=== PATIENT | female | born 1980 | race Caucasian/White ===

== ENCOUNTER 2020-09-07 09:50 | Outpatient (REF) | payer MEDICAID, SELFPAY ==
--- NOTE | 2020-09-07 | US_ITS ---
EXAMINATION: US ABDOMEN COMPLETE CLINICAL INFORMATION: Liver disease. COMPARISON: CT urogram without and with contrast 09/03/2019 TECHNIQUE: Real-time imaging of the abdominal viscera. FINDINGS: PANCREAS: The visualized pancreas is normal in size and contour and echogenicity. There is no pancreatic enlargement. No pancreatic ductal dilatation or retroperitoneal effusion. The pancreatic tail is obscured by bowel gas and not completely imaged. ABDOMINAL AORTA: The proximal, mid, and distal segments are normal in caliber. INFERIOR VENA CAVA: Visualized portions are normal. LIVER: The liver is normal in size and smooth in contour. Echogenicity is within normal. There is a solitary 1 cm hypoechoic lesion subcapsular anterior left lobe with some low-level internal echoes and mild increased through-transmission of sound. No associated color flow. This shows no enhancement on recent CT (post contrast 6 HU), consistent with a cyst. The remainder of the liver is unremarkable. There is no intrahepatic biliary ductal dilatation. GALLBLADDER: The gallbladder is distended normally. There is no stone or slight or wall thickening. Some fine punctate hyperechoic stranding of the inner wall may suggest cholesterolosis. No pericholecystic fluid. Negative sonographic Pan's sign. COMMON BILE DUCT: Normal in caliber measuring 0.6 cm in diameter. RIGHT KIDNEY: Normal. No hydronephrosis. No renal calculi or focal parenchymal lesions. The kidney measures 10.3 cm in maximum dimension. LEFT KIDNEY: Normal. No hydronephrosis. No renal calculi or focal parenchymal lesions. The kidney measures 10.4 cm in maximum dimension. SPLEEN: Normal. The spleen measures 8.1 cm in maximum dimension. FREE FLUID: None. US/US abdomen complete IMPRESSION: 1. Liver normal in size and smooth in contour. 1 cm cyst left lobe. 2. Question cholesterolosis gallbladder. No stone or sludge. No ductal dilatation.
== END 2020-09-07 09:51 | disposition home or self-care (01) ==
LOC: HO.US 09:50
PROVIDERS: PCP Internal Medicine; Visit Provider Internal Medicine
DX: K76.89 Other specified diseases of liver (principal)
CPT/HCPCS: 76700

== ENCOUNTER 2020-10-06 16:35 | Outpatient (REF) | payer MEDICAID, SELFPAY | END 2020-10-06 16:36 | disposition home or self-care (01) | LOC: HO.LAB 16:35 | PROVIDERS: Visit Provider Internal Medicine | DX: Z20.828 Contact with and (suspected) exposure to other viral communicable diseases (principal) | CPT/HCPCS: C9803; U0003 ==

== ENCOUNTER → 2021-01-05 11:07 | Outpatient (BNVA) | payer MEDICAID, SELFPAY | PROVIDERS: Visit Provider Obstetrics & Gynecology ==

== ENCOUNTER 2021-06-24 23:11 | Emergency (ER) | payer MEDICAID, SELFPAY ==
--- NOTE | ~2021-06-24 | US_ITS ---
EXAMINATION: US PELVIS CLINICAL INFORMATION: Dysfunctional uterine bleeding with increased pain COMPARISON: 06/16/2020 TECHNIQUE: Ultrasound of the pelvis is performed using both transabdominal and transvaginal transducers along with Doppler. Transvaginal imaging is performed due to inadequate visualization transabdominally. FINDINGS: Uterus: The uterus measures 8.6 cm in length and 4.5 x 6.9 cm in AP and transverse dimensions. Arcuate uterus configuration is again noted. Endometrial stripe measures 1.3 cm in thickness and demonstrates mild heterogeneity. The right ovary measures 2.4 x 1.3 x 1.5 cm and appears unremarkable. The left ovary measures 3.9 x 3.1 x 3.7 cm and contains a cyst which measures up to 3.4 cm. Doppler evaluation demonstrates bilateral ovarian flow. Small amount of free fluid is noted. US/US pelvic and transvaginal IMPRESSION: 1. Endometrial stripe thickness near the upper limits of normal. Areas of heterogeneity are noted along the endometrium which could reflect blood products. 2. Left ovarian cyst measuring up to 3.4 cm, which could be reassessed in 6-8 weeks to evaluate for resolution. 3. Small amount of nonspecific pelvic free fluid, which may be physiologic.
[2021-06-24 23:34] VITALS: BP 149/86; PULSE 84; RESP 16; TEMP 36.1; O2SAT 99; BMI 27.3
[2021-06-25] VITALS: BP 119/77; PULSE 73; RESP 18; TEMP 36.6; O2SAT 98
--- NOTE | 2021-06-25 01:08 | PC.NURSE ---
Pt resting on stretcher in NAD, breathing with ease on RA. Pt aaox4, reports she is bleeding through 5 extra long sanitary pads in the past hour. This RN assists pt to bathroom, notes pt's sanitary pad is saturated but pt reports she has been wearing that pad for 2 hours, thus providing conflicting information.
--- NOTE | 2021-06-25 01:09 | ED.FEMALEGU ---
HPI - Female Genitourinary General Chief complaint: Vaginal Bleeding Stated complaint: uro genital? Time Seen by Provider: 06/25/21 01:09 Source: patient Mode of arrival: ambulatory Limitations: no limitations History of Present Illness HPI Narrative: Patient with history of DUB with history of heavy bleeding in the past comes here for 1 month of heavier than usual bleeding , some days 6-7 pads a day with small clots patient feel weak slight dizzy sometimes never been on control pills has not seen any staff assistant also complaining of pain in the lower abdomen Related Data Previous Rx's Medication Instructions Recorded ferrous sulfate 325 mg (65 mg 325 mg PO DAILY #30 tab 06/25/21 iron) tablet ibuprofen 600 mg tablet 600 mg PO Q6H PRN #20 tab 06/25/21 norgestrel 0.3 mg-ethinyl 1 tab PO DAILY #28 tab 06/25/21 estradiol 30 mcg tablet Allergies Allergy/AdvReac Type Severity Reaction Status Date / Time No Known Allergies Allergy Unverified 06/25/20 18:09 [No Known Allergies*] Review of Systems Review of Systems: Yes all other systems are reviewed and are negative [facility] Past Medical History Surgical History H/O LEEP Tubal ligation status Social History Social History Advance Directives: No Advance Directives Information Provided: Yes Patient : No Physical Exam Vital Signs: Vital Signs: Last Vital Signs Temp 97.8 F 06/25/21 02:00 Pulse 73 06/25/21 02:00 Resp 14 06/25/21 02:00 BP 123/80 06/25/21 02:00 Pulse Ox 100 06/25/21 02:00 Body Mass Index 27.3 Appearance: Alert. Oriented X3. No acute distress. Eyes: No pallor or icterus ENT: Pharynx normal. Oral Mucosa moist Neck: Normal inspection. Neck supple. CVS: Normal heart rate and rhythm. Pulses normal. Respiratory: No respiratory distress. Equal air entry bilateral, no wheezing/rales/rhonchi Abdomen: Soft , mild tenderness suprapubic area Bowel sounds are present, no mass palpable, no CVA tenderness Skin: Skin warm and dry. Normal skin color. Normal skin turgor. Extremities: No lower extremity edema. No calf tenderness Neuro: Oriented X 3. MDM - Female Genitourinary MDM Narrative Medical decision making narrative: Patient dysfunctional uterine bleed with stable H&H ultrasound showed left ovarian cyst. Patient advised to take ibuprofen, iron tablets and follow up with staff assistant started on oral contraceptive pill Lab Data Attestation: I reviewed the patient's lab results. Result diagrams: 06/25/21 01:40 06/25/21 01:40 Labs: Lab Results 06/25/21 06/25/21 06/25/21 Range/Units 01:40 01:40 01:40 WBC 9.9 (4.8-10.8) X10*3/uL RBC 3.77 L (4.20-5.50) X10*6/uL Hgb 11.0 L (12.0-16.0) g/dl Hct 33.2 L (37-47) % MCV 88.1 (80-98) fL MCH 29.2 (27.0-33.0) pg MCHC 33.1 (31.0-35.0) g/dl RDW 14.0 (11.0-16.0) % Plt Count 279 (160-400) X10*3/uL MPV 10.2 (9.4-12.3) fL Immature Gran % (Auto) 0.2 (0.0-0.4) % Neut % (Auto) 59.3 (45-73) % Lymph % (Auto) 29.1 (20-40) % [place] % (Auto) 9.5 (2-11) % Eos % (Auto) 1.5 (0-4) % Baso % (Auto) 0.4 (0-2) % Lymph # (Auto) 2.9 (1.2-4.9) X10*3/uL [place] # (Auto) 0.9 (0.1-1.2) X10*3/uL Eos # (Auto) 0.2 (0.0-0.4) X10*3/uL Baso # (Auto) 0.0 (0.0-0.2) X10*3/uL Abs Immat Gran (auto) 0.02 (0.00-0.03) X10*3/uL Absolute Neuts (auto) 5.9 (2.0-8.3) X10*3/uL Absolute Nucleated RBC 0.000 (0.0-0.012) X10*3/uL Nucleated RBC % (auto) 0.0 (0.0-0.2) /100WBC Sodium (135-145) mmol/L Potassium (3.3-5.1) mmol/L Chloride (96-108) mmol/L Carbon Dioxide (22-29) mmol/L Anion Gap (12-20) BUN (9-16) mg/dL Creatinine (0.5-1.4) mg/dL Estim Creat Clear Calc Estimated GFR Random Glucose (60-115) mg/dL Calcium (8.4-10.2) mg/dL Total Bilirubin (0.0-1.0) mg/dL AST (5-31) U/L ALT (0-31) U/L Alkaline Phosphatase (39-117) U/L Total Protein (6.5-8.0) g/dL Albumin (3.5-5.0) g/dL Urine Color YELLOW Urine Appearance HAZY Urine pH 6.5 (5.0-8.0) Ur Specific [place] 1.025 (1.005-1.025) Urine Protein TRACE (NEG-TRACE) MG/DL Urine Glucose (UA) NEG (NEG) MG/DL Urine Ketones NEG (NEG) MG/DL Urine Blood 3+ H (NEG) Urine Nitrite NEG (NEG) Ur Leukocyte Esterase NEG (NEG) Urine RBC 30-49 H (0) /HPF Urine WBC 1-4 (0-4) /HPF Ur Squamous Epith Cells 1+ /LPF Urine Bacteria 1+ /LPF Urine Mucus 1+ /LPF Urine Test NEGATIVE (NEGATIVE) 06/25/21 Range/Units 01:40 WBC (4.8-10.8) X10*3/uL RBC (4.20-5.50) X10*6/uL Hgb (12.0-16.0) g/dl Hct (37-47) % MCV (80-98) fL MCH (27.0-33.0) pg MCHC (31.0-35.0) g/dl RDW (11.0-16.0) % Plt Count (160-400) X10*3/uL MPV (9.4-12.3) fL Immature Gran % (Auto) (0.0-0.4) % Neut % (Auto) (45-73) % Lymph % (Auto) (20-40) % [place] % (Auto) (2-11) % Eos % (Auto) (0-4) % Baso % (Auto) (0-2) % Lymph # (Auto) (1.2-4.9) X10*3/uL [place] # (Auto) (0.1-1.2) X10*3/uL Eos # (Auto) (0.0-0.4) X10*3/uL Baso # (Auto) (0.0-0.2) X10*3/uL Abs Immat Gran (auto) (0.00-0.03) X10*3/uL Absolute Neuts (auto) (2.0-8.3) X10*3/uL Absolute Nucleated RBC (0.0-0.012) X10*3/uL Nucleated RBC % (auto) (0.0-0.2) /100WBC Sodium 141 (135-145) mmol/L Potassium 4.0 (3.3-5.1) mmol/L Chloride 108 (96-108) mmol/L Carbon Dioxide 24 (22-29) mmol/L Anion Gap 13 (12-20) BUN 10 (9-16) mg/dL Creatinine 0.74 (0.5-1.4) mg/dL Estim Creat Clear Calc 85.7 Estimated GFR > 60 Random Glucose 100 (60-115) mg/dL Calcium 9.0 (8.4-10.2) mg/dL Total Bilirubin 0.2 (0.0-1.0) mg/dL AST 12 (5-31) U/L ALT 10 (0-31) U/L Alkaline Phosphatase 39 (39-117) U/L Total Protein 6.3 L (6.5-8.0) g/dL Albumin 3.9 (3.5-5.0) g/dL Urine Color Urine Appearance Urine pH (5.0-8.0) Ur Specific [place] (1.005-1.025) Urine Protein (NEG-TRACE) MG/DL Urine Glucose (UA) (NEG) MG/DL Urine Ketones (NEG) MG/DL Urine Blood (NEG) Urine Nitrite (NEG) Ur Leukocyte Esterase (NEG) Urine RBC (0) /HPF Urine WBC (0-4) /HPF Ur Squamous Epith Cells /LPF Urine Bacteria /LPF Urine Mucus /LPF Urine Test (NEGATIVE) Discharge Plan Discharge Clinical Impression: Dysfunctional uterine bleeding Patient Disposition: Home, Self-Care Instructions: Dysfunctional Uterine Bleeding (ED), Ovarian Cyst (ED) Additional Instructions: Ibuprofen for pain Take control pills as advised to control your periods. Follow with staff assistant Prescriptions: New norgestrel-ethinyl estradiol 0.3-30 mg-mcg tablet 1 tab PO DAILY Qty: 28 RF: 2 ibuprofen 600 mg tablet 600 mg PO Q6H PRN (Reason: pain) Qty: 20 RF: 0 ferrous sulfate 325 mg (65 mg iron) tablet 325 mg PO DAILY Qty: 30 RF: 0 Referrals: Kalin Portillo MD [Physician] - 1 week Interventions: ED Discharge Assessment Last Done: 06/25/21 03:16 Discharge Date/Time: 06/25/21 03:17
[2021-06-25 01:46] LABS: MANUAL DIFF FLAG NO
[2021-06-25 01:56] LABS: Appearance Urine HAZY; Color Urine YELLOW; Glucose Urine UA NEG (NEG); Leukocyte Esterase Urine NEG (NEG); Nitrite Urine NEG (NEG); PH 6.5 (5.0-8.0); Specific Gravity - Urine 1.025 (1.005-1.025); UACC Culture Trigger NO; Urine Blood 3+ (NEG); Urine Ketones NEG (NEG); Urine Protein TRACE MG/DL (NEG-TRACE)
[2021-06-25 01:57] LABS: Basophils Percent Auto 0.4 % (0-2); Eosinophils Absolute Auto 0.2 X10*3/uL (0.0-0.4); Eosinophils Percent Auto 1.5 % (0-4); Hematocrit 33.2 % (37-47); Imm Gran Abs Auto 0.02 X10*3/uL (0.00-0.03); Imm Gran Pct Auto 0.2 % (0.0-0.4); Lymphocytes Absolute Auto 2.9 X10*3/uL (1.2-4.9); Lymphocytes Percent Auto 29.1 % (20-40); Mean Corpuscular HGB Conc 33.1 g/dl (31.0-35.0); Mean Corpuscular Hemoglobin 29.2 pg (27.0-33.0); Mean Corpuscular Volume 88.1 fL (80-98); Mean Platelet Volume 10.2 fL (9.4-12.3); Monocytes Absolute Auto 0.9 X10*3/uL (0.1-1.2); Monocytes Percent Auto 9.5 % (2-11); Neutrophils Absolute Auto 5.9 X10*3/uL (2.0-8.3); Neutrophils Percent Auto 59.3 % (45-73); Platelet Count 279 X10*3/uL (160-400); Red Blood Count 3.77 X10*6/uL (4.20-5.50); White Blood Count 9.9 X10*3/uL (4.8-10.8)
[2021-06-25 01:58] LABS: UPreg QC Valid YES; Urine Pregnancy NEGATIVE (NEGATIVE)
[2021-06-25 02:00] VITALS: BP 123/80; PULSE 73; RESP 14; TEMP 36.6; O2SAT 100
[2021-06-25 02:07] LABS: Alanine Aminotransferase 10 U/L (0-31); Albumin Level 3.9 g/dL (3.5-5.0); Alkaline Phosphatase 39 U/L (39-117); Anion Gap 13 (12-20); Aspartate Amino Transferase 12 U/L (5-31); Bilirubin Total 0.2 mg/dL (0.0-1.0); Blood Urea Nitrogen 10 mg/dL (9-16); Carbon Dioxide 24 mmol/L (22-29); Chloride 108 mmol/L (96-108); Creatinine Clr Calc Pharmacy 85.7; Estimated Glomerular Filt Rate > 60; Glucose Random 100 mg/dL (60-115); Sodium 141 mmol/L (135-145); Total Protein 6.3 g/dL (6.5-8.0)
[2021-06-25 02:11] LABS: RBC Urine 30-49 /HPF (0)
[2021-06-25 02:12] LABS: Bacteria Urine 1+ /LPF; Mucus Urine 1+ /LPF; Squamous Epithelial Cell Urine 1+ /LPF
[2021-06-25] MEDS: Ibuprofen 600 MG TABLET PO (03:14)
== END 2021-06-25 03:17 | disposition home or self-care (01) ==
PROVIDERS: Emergency Provider Internal Medicine
DX: N93.8 Other specified abnormal uterine and vaginal bleeding (principal); Z79.899 Other long term (current) drug therapy
CPT/HCPCS: 36415; 76830; 76856; 80053; 81001; 81025; 85025; 99284

== ENCOUNTER 2021-07-15 12:02 | Outpatient (REF) | payer MEDICAID, SELFPAY ==
[2021-07-15 14:12] LABS: HCG Quantitative < 2 mIU/mL; TSH reflex Free T4 1.24 uIU/mL (0.32-4.0)
[2021-07-15 16:07] LABS: CT PCR NOT DETECTED (Not Detect.); NG PCR NOT DETECTED (Not Detect.)
== END 2021-07-15 12:03 | disposition home or self-care (01) ==
LOC: HO.LAB 12:02
PROVIDERS: PCP Internal Medicine; Visit Provider Obstetrics & Gynecology
DX: N93.9 Abnormal uterine and vaginal bleeding, unspecified (principal)
CPT/HCPCS: 36415; 58100; 84443; 84702; 87491; 87591; 88305; 99212

== ENCOUNTER → 2021-07-21 10:37 | Outpatient (BNVA) | payer MEDICAID, SELFPAY | PROVIDERS: Visit Provider Obstetrics & Gynecology ==

== ENCOUNTER 2021-08-19 12:53 | Emergency (ER) | payer MEDICAID, SELFPAY ==
--- NOTE | ~2021-08-19 | XR_ITS ---
EXAMINATION: XR CHEST CLINICAL INFORMATION: Chest pain COMPARISON: None TECHNIQUE: Frontal view of the chest was obtained. FINDINGS: No significant abnormality is noted involving the heart, lungs, mediastinum, bony thorax or soft tissues. XR/XR chest 1V IMPRESSION: No acute disease.
--- NOTE | ~2021-08-19 | CT_ITS ---
EXAMINATION: CT ANGIOGRAM OF THE CHEST WITH AND WITHOUT CONTRAST (CT PULMONARY ANGIOGRAM FOR PE) CLINICAL INFORMATION: Elevated d-dimer. Shortness of breath. Chest pain. COMPARISON: Chest radiograph done earlier today at 2:07 PM. TECHNIQUE: Prior to contrast administration, noncontrast localization images were obtained. Subsequently, multidetector volumetric imaging was performed from the thoracic inlet to below the diaphragms following the administration of 70 mL Omnipaque 350 intravenous contrast. No contrast reaction reported Sagittal, coronal, and MIP oblique sagittal reformatted images were obtained on the CT workstation, uploaded to PACS, and reviewed. This CT examination was performed using dose optimization techniques as appropriate, variously including the following: *Automated exposure control *Adjustment of mA and/or kV according to patient size (this includes techniques or standardized protocols for targeted exams where dose is matched to indication/reason for exam; i.e. extremities or head) *Use of iterative reconstruction technique Total exam dose-length product 203 mGy-cm FINDINGS: QUALITY OF STUDY/CONTRAST BOLUS: Satisfactory. PULMONARY ARTERIES: There are a few filling defects within segmental branches of the right middle lobe (axial images 196 and 198 of series 7). On coronal images, these appear to be related with superimposed barragan from adjacent vessels (image 34 of series 11) which favored to represent artifacts from volume averaging. No central pulmonary emboli. THORACIC AORTA: No aneurysm or dissection. LUNG: No focal consolidation. There is very mild bronchial wall thickening with subtle mosaic attenuation of the lung parenchyma. No suspicious pulmonary nodules or masses. The central airways are patent. PLEURA: No pleural effusion or pneumothorax. MEDIASTINUM: Normal heart size. No pericardial effusion. No hilar or mediastinal lymphadenopathy. No evidence of septal bowing or right heart strain. CHEST WALL/AXILLA: No axillary or internal mammary lymphadenopathy. OSSEOUS STRUCTURES: No acute or suspicious osseous abnormality. UPPER ABDOMEN: There is a too small to characterize hypodensity in the right hepatic lobe (image 45 of series 6) which is overwhelmingly likely to be of no clinical significance. No reflux of contrast into the hepatic veins to suggest elevated right heart pressures. CT/CT angio chest PE protocol IMPRESSION: On axial images there are some filling defects within segmental branches of the right middle lobe that when correlating with other projections appear to be artifactual and related with volume averaging. However, is clinical concerning persists for pulmonary emboli, consider further evaluation with a nuclear medicine study or a short-term follow-up CT. No central pulmonary emboli. No evidence of increased right-sided heart pressures. Mild bronchial wall thickening and mosaic attenuation of the lung parenchyma could be related with an infectious or inflammatory process of the small airways leading to mild air trapping. A tiny hypodensity in the right hepatic lobe is likely a benign finding, possibly a cyst or hemangioma. If definite characterization is desired, consider further evaluation with a nonemergent liver ultrasound. VTE: indeterminate
--- NOTE | 2021-08-19 13:25 | PC.NURSE ---
pattern and chain maker called to help triage
[2021-08-19 13:42] VITALS: BP 120/81; PULSE 93; RESP 18; TEMP 36.6; O2SAT 100; BMI 27.3
--- NOTE | 2021-08-19 13:47 | ECG_ITS ---
Test Reason : CHEST PAIN Blood Pressure : / mmHG Vent. Rate : 089 BPM Atrial Rate : 089 BPM P-R Int : 146 ms QRS Dur : 074 ms QT Int : 356 ms P-R-T Axes : 031 057 033 degrees QTc Int : 433 ms Normal sinus rhythm Normal ECG No previous ECGs available Referred By: Generic ED Physician Electronically Signed By:WENDY BURK MD
[2021-08-19 15:56] VITALS: BP 126/82; PULSE 80; RESP 16; TEMP 36.7; O2SAT 100
--- NOTE | 2021-08-19 16:09 | ED.CHESTPAIN ---
HPI - Chest Pain General Chief Complaint: Chest Pain Stated Complaint: sob, chest tightness, dry mouth, loss of appetite Time Seen by Provider: 08/19/21 15:45 Source: patient Mode of arrival: ambulatory Limitations: no limitations History of Present Illness HPI narrative: 41-year-old female with no previous medical history here with complaints of intermittent chest tightness with shortness of breath for the last 1 week. No leg swelling or pain. No cough, fevers or chills. Pain is worsened with deep breathing. Also complaining of some associated dry mouth and perioral numbness which is occurring with these episodes. Increased stress and anxiety at home due to her children. Was taking an OCP tell about 2 weeks ago when she discontinued it because she feels like her symptoms may have been caused by this medication Related Data Previous Rx's Medication Instructions Recorded ferrous sulfate 325 mg (65 mg 325 mg PO DAILY #30 tab 06/25/21 iron) tablet ibuprofen 600 mg tablet 600 mg PO Q6H PRN #20 tab 06/25/21 norgestrel 0.3 mg-ethinyl 1 tab PO DAILY 28 Days #28 tab 07/21/21 estradiol 30 mcg tablet lorazepam 0.5 mg tablet 0.5 mg PO TID PRN #8 tab 08/19/21 rivaroxaban 15 mg (42)-20 mg (9) See Rx Instructions .ROUTE 08/19/21 tablets in a starter pack (Xarelto .COMPLEX #51 ea DVT-PE Treat 30d Start) Allergies Allergy/AdvReac Type Severity Reaction Status Date / Time No Known Allergies Allergy Verified 08/19/21 13:22 [No Known Allergies*] Review of Systems Review of Systems: Yes all other systems are reviewed and are negative Constitutional: Constitutional: Reports no additional constitutional complaints, Denies body ache(s), Denies chills, Denies fever(s), Denies headache(s) and Denies weakness Eyes: Eyes: Reports no additional eye complaints and Denies change in vision ENT: Reports system reviewed and no additional complaints, except as documented, Denies dizziness, Denies headache(s), Denies nasal congestion, Denies nasal discharge and Denies neck pain Cardiovascular: Cardiovascular: Reports no additional cardiovascular complaints, Reports chest pain, Denies leg edema and Reports dyspnea Respiratory: Respiratory: Reports no additional respiratory complaints, Denies cough and Reports dyspnea Gastrointestinal: Gastrointestinal: Reports no additional gastrointestinal complaints, Denies abdominal pain, Denies diarrhea, Denies nausea and Denies vomiting Genitourinary: Genitourinary: Reports no additional female genitourinary complaints and Denies urinary incontinence Musculoskeletal: Musculoskeletal: Reports no additional musculoskeletal complaints, Denies back pain, Denies arthralgias, Denies joint swelling, Denies neck pain, Denies numbness and Denies tingling Integumentary/Breasts: Skin/Breast: Reports system reviewed and no additional complaints, except as docu and Denies rash Neurologic: Reports system reviewed and no additional complaints, except as documented, Denies Abnormal speech present, Denies dizziness, Denies headache(s), Denies numbness, Denies tingling and Denies weakness PMFSH Past Medical History Attestation statement: The following information was validated with the patient. Source: old records reviewed and nursing notes reviewed Surgical History H/O LEEP Tubal ligation status Family History Family History Father Lung cancer Social History Social History Patient Tobacco Use Status: Current everyday Tobacco user Advance Directives: No Advance Directives Information Provided: Yes Patient : No Physical Exam Vital Signs: Vital Signs: Last Vital Signs Temp 98.4 F 08/19/21 19:45 Pulse 88 08/19/21 19:45 Resp 18 08/19/21 19:45 BP 118/79 08/19/21 19:45 Pulse Ox 97 08/19/21 19:45 Body Mass Index 27.3 Const: General: cooperative, healthy appearing, comfortable and no acute distress Orientation/consciousness: patient oriented x3 Limitations: no limitations HENMT: Head: Yes normal to inspection Ears: hearing grossly normal bilaterally and TM's normal bilaterally General nose exam: Normal external nose present Face and sinus: Yes normal facial exam Mouth: Normal oral and palatal mucosa present Throat: Yes posterior oropharynx normal Eyes: General: appearance normal, both eyes and all related structures Pupils: Equal, round and reactive pupils present Neck: Neck: Yes normal visual inspection Chest: Chest palpation & inspection: normal inspection of the chest Resp: Effort & Inspection: normal respiratory effort Auscultation: clear to auscultation bilaterally Cardio: Rate: regular rate Rhythm: regular rhythm Peripheral pulses: Peripheral pulses 2+ throughout GI: Inspection: Yes normal to inspection Palpation (GI): Soft to palpation and nontender Auscultation: normal bowel sounds Back/Spine/Pelvis: Thoracic/Lumbar Spine: thoracic and lumbar spine normal to inspection Skin: General skin exam: no rashes or lesions noted Neuro: General: patient oriented x3, no focal motor deficits and normal sensation to monofilament Cranial nerves: Yes Equal, round and reactive pupils present Cognition (Neuro): normal cognition Speech: No Abnormal speech present Gait exam (Neuro): Normal gait present Motor exam (neuro): 5/5 motor strength present throughout Extrem: General: Yes normal to inspection, Yes no pedal edema and Yes no calf tenderness Course Course Course Narrative: 41-year-old female here with complaints of 1 week of chest tightness and shortness of breath. On an OCP till about 2 weeks ago. Will need labs, chest x-ray, EKG. [id number] is elevated. Will need CTA to rule out PE 0-CTA shows some filling defects within segmental branches of the right middle lobe that when correlating with other projections appear to be artifactual and related with volume averaging. However, is clinical concerning persists for pulmonary emboli, consider further evaluation with a nuclear medicine study or a short-term follow-up CT. Clinically the patient has no evidence of a DVT. She has no tachycardia, hypoxia or tachypnea. She does have some pleuritic chest pain and subjective shortness of breath with a mildly elevated D-dimer. She was on OCP until about 2 weeks ago when she discontinued it.. The case was discussed with Dr. Pinto. At this time we would likely not be able to get a nuclear medicine study. Patient is clinically stable with no hypoxia or tachypnea which warrants admission. Therefore, we will discharge her home on Xarelto and recommend that she have a repeat CT scan within 7 days. At that point the Xarelto can be discontinued by her primary care doctor if the imaging is negative. We discussed at length with the brand representative and the patient's mom a better plan for discharge home. We also discussed the use of anticoagulation and associated risks. She tells me that she does have a history of heavy vaginal bleeding >several months ago which never required transfusion. We discussed risks versus benefits at length. Patient is aware that she may have some vaginal bleeding however feels that the benefits of starting anticoagulation outweighs this. All questions answered. Case discussed with microfabrication engineer manager at [facility] (Jose Name). he will ensure patient has follow-up this week. Reviewed worrisome signs and symptoms of when to return to the emergency department. Comfortable discharge home. MDM - Chest Pain MDM Narrative Medical decision making narrative: PE, ACS Medical Records Data Attestation: I reviewed the patient's medical records. Lab Data Attestation: I reviewed the patient's lab results. Result diagrams: 08/19/21 15:58 08/19/21 15:58 Labs: Lab Results 08/19/21 08/19/21 08/19/21 Range/Units 15:58 15:58 15:58 WBC 7.0 (4.8-10.8) X10*3/uL RBC 4.05 L (4.20-5.50) X10*6/uL Hgb 11.5 L (12.0-16.0) g/dl Hct 35.9 L (37.0-47.0) % MCV 88.6 (80.0-98.0) fL MCH 28.4 (27.0-33.0) pg MCHC 32.0 (31.0-35.0) g/dl RDW 13.2 (11.0-16.0) % Plt Count 302 (160-400) X10*3/uL MPV 10.4 (9.4-12.3) fL Immature Gran % (Auto) 0.4 (0.0-0.4) % Neut % (Auto) 67.8 (45-73) % Lymph % (Auto) 21.9 (20-40) % Bailey % (Auto) 8.3 (2-11) % Eos % (Auto) 1.0 (0-4) % Baso % (Auto) 0.6 (0-2) % Lymph # (Auto) 1.5 (1.2-4.9) X10*3/uL Bailey # (Auto) 0.6 (0.1-1.2) X10*3/uL Eos # (Auto) 0.1 (0.0-0.4) X10*3/uL Baso # (Auto) 0.0 (0.0-0.2) X10*3/uL Abs Immat Gran (auto) 0.03 (0.00-0.03) X10*3/uL Absolute Neuts (auto) 4.8 (2.0-8.3) x10*3/uL Absolute Nucleated RBC 0.000 (0.0-0.012) X10*3/uL Nucleated RBC % (auto) 0.0 (0.0-0.2) /100WBC PT 12.5 (9.9-13.0) SEC INR 1.1 (0.9-1.1) D-Dimer 294 NG/ML Sodium (135-145) mmol/L Potassium (3.3-5.1) mmol/L Chloride (96-108) mmol/L Carbon Dioxide (22-29) mmol/L Anion Gap (12-20) BUN (9-16) mg/dL Creatinine (0.5-1.4) mg/dL Estim Creat Clear Calc Estimated GFR Random Glucose (60-115) mg/dL Calcium (8.4-10.2) mg/dL Total Bilirubin (0.0-1.0) mg/dL Direct Bilirubin (0.0-0.5) mg/dL AST (5-31) U/L ALT (0-31) U/L Alkaline Phosphatase (39-117) U/L Troponin I High Sens < 3.5 (<3.5-17.0) ng/L Total Protein (6.5-8.0) g/dL Albumin (3.5-5.0) g/dL Urine Color Urine Appearance Urine pH (5.0-8.0) Ur Specific [place] (1.005-1.025) Urine Protein (NEG-TRACE) MG/DL Urine Glucose (UA) (NEG) MG/DL Urine Ketones (NEG) MG/DL Urine Blood (NEG) Urine Nitrite (NEG) Ur Leukocyte Esterase (NEG) Urine RBC (0) /HPF Urine WBC (0-4) /HPF Ur Squamous Epith Cells /LPF Urine Bacteria /LPF Urine Test (NEGATIVE) 08/19/21 08/19/21 08/19/21 Range/Units 15:58 18:06 18:06 WBC (4.8-10.8) X10*3/uL RBC (4.20-5.50) X10*6/uL Hgb (12.0-16.0) g/dl Hct (37.0-47.0) % MCV (80.0-98.0) fL MCH (27.0-33.0) pg MCHC (31.0-35.0) g/dl RDW (11.0-16.0) % Plt Count (160-400) X10*3/uL MPV (9.4-12.3) fL Immature Gran % (Auto) (0.0-0.4) % Neut % (Auto) (45-73) % Lymph % (Auto) (20-40) % Bailey % (Auto) (2-11) % Eos % (Auto) (0-4) % Baso % (Auto) (0-2) % Lymph # (Auto) (1.2-4.9) X10*3/uL Bailey # (Auto) (0.1-1.2) X10*3/uL Eos # (Auto) (0.0-0.4) X10*3/uL Baso # (Auto) (0.0-0.2) X10*3/uL Abs Immat Gran (auto) (0.00-0.03) X10*3/uL Absolute Neuts (auto) (2.0-8.3) x10*3/uL Absolute Nucleated RBC (0.0-0.012) X10*3/uL Nucleated RBC % (auto) (0.0-0.2) /100WBC PT (9.9-13.0) SEC INR (0.9-1.1) D-Dimer NG/ML Sodium 138 (135-145) mmol/L Potassium 3.9 (3.3-5.1) mmol/L Chloride 107 (96-108) mmol/L Carbon Dioxide 24 (22-29) mmol/L Anion Gap 11 L (12-20) BUN 10 (9-16) mg/dL Creatinine 0.73 (0.5-1.4) mg/dL Estim Creat Clear Calc 86.0 Estimated GFR > 60 Random Glucose 92 (60-115) mg/dL Calcium 9.2 (8.4-10.2) mg/dL Total Bilirubin < 0.2 (0.0-1.0) mg/dL Direct Bilirubin < 0.2 (0.0-0.5) mg/dL AST 20 D (5-31) U/L ALT 19 (0-31) U/L Alkaline Phosphatase 56 D (39-117) U/L Troponin I High Sens (<3.5-17.0) ng/L Total Protein 7.1 (6.5-8.0) g/dL Albumin 4.2 (3.5-5.0) g/dL Urine Color YELLOW Urine Appearance CLEAR Urine pH 6.0 (5.0-8.0) Ur Specific [place] >= 1.030 H (1.005-1.025) Urine Protein NEG (NEG-TRACE) MG/DL Urine Glucose (UA) NEG (NEG) MG/DL Urine Ketones 15 (NEG) MG/DL Urine Blood 1+ H (NEG) Urine Nitrite NEG (NEG) Ur Leukocyte Esterase NEG (NEG) Urine RBC 1-4 (0) /HPF Urine WBC 0 (0-4) /HPF Ur Squamous Epith Cells NONE /LPF Urine Bacteria 1+ /LPF Urine Test NEGATIVE (NEGATIVE) Imaging Data Chest x-ray: Attestation: I personally reviewed and interpreted this imaging study as follows: Radiologist's impression: EXAMINATION: XR CHEST CLINICAL INFORMATION: Chest pain COMPARISON: None TECHNIQUE: Frontal view of the chest was obtained. FINDINGS: No significant abnormality is noted involving the heart, lungs, mediastinum, bony thorax or soft tissues. XR/XR chest 1V IMPRESSION: No acute disease. ? CT scan - chest: Attestation: I personally reviewed and interpreted this imaging study as follows: Radiologist's impression: [address] [address] [address] Scan Report Signed Patient: Carmen Whitten MR#: [id number] : 1980 Acct:[id number] Age/Sex: 41 / F ADM Date: 08/19/21 Loc: .ED Attending Dr: Ordering Physician: Ariana Malave NP Date of Service: 08/19/21 Procedure(s): CT angio chest PE protocol Accession Number(s): [id number] cc: Ariana Malave NP~ EXAMINATION: CT ANGIOGRAM OF THE CHEST WITH AND WITHOUT CONTRAST (CT PULMONARY ANGIOGRAM FOR PE) CLINICAL INFORMATION: Elevated d-dimer. Shortness of breath. Chest pain. COMPARISON: Chest radiograph done earlier today at 2:07 PM.? TECHNIQUE: Prior to contrast administration, noncontrast localization images were obtained. ? Subsequently, multidetector volumetric imaging was performed from the thoracic inlet to below the diaphragms following the administration of 70 mL Omnipaque 350 intravenous contrast. No contrast reaction reported Sagittal, coronal, and MIP oblique sagittal reformatted images were obtained on the CT workstation, uploaded to PACS, and reviewed. This CT examination was performed using dose optimization techniques as appropriate, variously including the following: *Automated exposure control *Adjustment of mA and/or kV according to patient size (this includes techniques or standardized protocols for targeted exams where dose is matched to indication/reason for exam; i.e. extremities or head) *Use of iterative reconstruction technique Total exam dose-length product 203 mGy-cm FINDINGS: QUALITY OF STUDY/CONTRAST BOLUS: Satisfactory. PULMONARY ARTERIES: There are a few filling defects within segmental branches of the right middle lobe (axial images 196 and 198 of series 7). On coronal images, these appear to be related with superimposed barragan from adjacent vessels (image 34 of series 11) which favored to represent artifacts from volume averaging. No central pulmonary emboli. ? THORACIC AORTA: No aneurysm or dissection. LUNG: No focal consolidation. There is very mild bronchial wall thickening with subtle mosaic attenuation of the lung parenchyma. No suspicious pulmonary nodules or masses. The central airways are patent. PLEURA: No pleural effusion or pneumothorax. MEDIASTINUM: Normal heart size.? No pericardial effusion.? No hilar or mediastinal lymphadenopathy.? No evidence of septal bowing or right heart strain. CHEST WALL/AXILLA: No axillary or internal mammary lymphadenopathy. OSSEOUS STRUCTURES: No acute or suspicious osseous abnormality.? UPPER ABDOMEN: There is a too small to characterize hypodensity in the right hepatic lobe (image 45 of series 6) which is overwhelmingly likely to be of no clinical significance.? No reflux of contrast into the hepatic veins to suggest elevated right heart pressures. CT/CT angio chest PE protocol IMPRESSION: On axial images there are some filling defects within segmental branches of the right middle lobe that when correlating with other projections appear to be artifactual and related with volume averaging. However, is clinical concerning persists for pulmonary emboli, consider further evaluation with a nuclear medicine study or a short-term follow-up CT. ? No central pulmonary emboli. ? No evidence of increased right-sided heart pressures. ? Mild bronchial wall thickening and mosaic attenuation of the lung parenchyma could be related with an infectious or inflammatory process of the small airways leading to mild air trapping. ? A tiny hypodensity in the right hepatic lobe is likely a benign finding, possibly a cyst or hemangioma. If definite characterization is desired, consider further evaluation with a nonemergent liver ultrasound. ? VTE: indeterminate ECG Data ECG #1: Attestation: I personally reviewed and interpreted this ECG as follows: ECG interpretation date: 08/19/21 ECG interpretation time: 14:51 Interpretation: Normal sinus rhythm with a rate of 89, normal ME, normal QRS, normal QT Discharge Plan Discharge Clinical Impression: Pulmonary embolism Patient Disposition: Home, Self-Care Instructions: Chest Pain (ED), Blood Thinners (ED) Additional Instructions: Hicimos percy tomograf?a computarizada de reynolds t?rax que fue indeterminada para percy embolia pulmonar que es un co?gulo en el pulm?n. Se recomend? que se repita la tomograf?a computarizada dentro de los 7 d?as. Estamos comenzando con la anticoagulaci?n, que puede ser descontinuada por reynolds m?dico de atenci?n primaria si reynolds tomograf?a computarizada repetida es normal. Habl? con el m?dico de atenci?n primaria de reina que lo adurey? esta semana. Debes llamar. Busque atenci?n en el servicio de urgencias si empeora la dificultad para respirar, el sangrado que no se detiene en 10 minutos o si se y se golpea la meaghan. I spoke to microfabrication engineer manager physician Dr Jose Sanabria Prescriptions: New Xarelto DVT-PE Treat 30d Start 15 mg (42)- 20 mg (9) tablets,dose pack See Rx Instructions .ROUTE .COMPLEX Qty: 51 RF: 0 lorazepam 0.5 mg tablet 0.5 mg PO TID PRN (Reason: anxiety) Qty: 8 RF: 0 No Action ibuprofen 600 mg tablet 600 mg PO Q6H PRN (Reason: pain) Qty: 20 RF: 0 ferrous sulfate 325 mg (65 mg iron) tablet 325 mg PO DAILY Qty: 30 RF: 0 norgestrel-ethinyl estradiol 0.3-30 mg-mcg tablet 1 tab PO DAILY 28 Days Qty: 28 RF: 2 Referrals: Ana M Harrington MD [Primary Care Provider] - 2 days Print Language: Irish
[2021-08-19 16:11] LABS: MANUAL DIFF FLAG NO
[2021-08-19 16:17] LABS: INTERNATIONAL NORM RATIO 1.1 (0.9-1.1); Prothrombin Time 12.5 SEC (9.9-13.0)
[2021-08-19 16:27] LABS: Alanine Aminotransferase 19 U/L (0-31); Albumin Level 4.2 g/dL (3.5-5.0); Alkaline Phosphatase 56 U/L (39-117); Anion Gap 11 (12-20); Aspartate Amino Transferase 20 U/L (5-31); Bilirubin Direct < 0.2 mg/dL (0.0-0.5); Bilirubin Total < 0.2 mg/dL (0.0-1.0); Blood Urea Nitrogen 10 mg/dL (9-16); Calcium 9.2 mg/dL (8.4-10.2); Carbon Dioxide 24 mmol/L (22-29); Chloride 107 mmol/L (96-108); Estimated Glomerular Filt Rate > 60; Glucose Random 92 mg/dL (60-115); Potassium 3.9 mmol/L (3.3-5.1); Sodium 138 mmol/L (135-145); Total Protein 7.1 g/dL (6.5-8.0)
[2021-08-19 16:31] LABS: Troponin-I High Sensitivity < 3.5 ng/L (<3.5-17.0)
[2021-08-19 16:37] LABS: Basophils Percent Auto 0.6 % (0-2); Eosinophils Absolute Auto 0.1 X10*3/uL (0.0-0.4); Hematocrit 35.9 % (37.0-47.0); Hemoglobin 11.5 g/dl (12.0-16.0); Imm Gran Abs Auto 0.03 X10*3/uL (0.00-0.03); Imm Gran Pct Auto 0.4 % (0.0-0.4); Lymphocytes Absolute Auto 1.5 X10*3/uL (1.2-4.9); Lymphocytes Percent Auto 21.9 % (20-40); Mean Corpuscular Hemoglobin 28.4 pg (27.0-33.0); Mean Corpuscular Volume 88.6 fL (80.0-98.0); Mean Platelet Volume 10.4 fL (9.4-12.3); Monocytes Absolute Auto 0.6 X10*3/uL (0.1-1.2); Monocytes Percent Auto 8.3 % (2-11); Neutrophils Absolute Auto 4.8 x10*3/uL (2.0-8.3); Neutrophils Percent Auto 67.8 % (45-73); Platelet Count 302 X10*3/uL (160-400); Red Blood Count 4.05 X10*6/uL (4.20-5.50); Red Cell Distribution Width 13.2 % (11.0-16.0)
[2021-08-19 16:42] LABS: D Dimer 294 NG/ML
[2021-08-19] MEDS: iohexoL 350 MG/ML 100 ML INFUS..BTL IV (17:27)
[2021-08-19 18:32] LABS: UPreg QC Valid YES; Urine Pregnancy NEGATIVE (NEGATIVE)
[2021-08-19 18:33] LABS: Appearance Urine CLEAR; Color Urine YELLOW; Glucose Urine UA NEG (NEG); Leukocyte Esterase Urine NEG (NEG); Nitrite Urine NEG (NEG); Specific Gravity - Urine >= 1.030 (1.005-1.025); UACC Culture Trigger NO; Urine Blood 1+ (NEG); Urine Ketones 15 MG/DL (NEG); Urine Protein NEG (NEG-TRACE)
[2021-08-19 18:44] LABS: Bacteria Urine 1+ /LPF; WBC Urine 0 /HPF (0-4)
[2021-08-19 18:46] VITALS: BP 120/78; PULSE 88; RESP 16; TEMP 37.2; O2SAT 99
[2021-08-19 19:45] VITALS: BP 118/79; PULSE 88; RESP 18; TEMP 36.9; O2SAT 97
--- NOTE | 2021-08-19 19:49 | PC.NURSE ---
pt a&o, no sign of distress, provider into discuss plan of care. discharge instructions reviewed. Medication reviewed and education completed at discharge.
== END 2021-08-19 19:54 | disposition home or self-care (01) ==
PROVIDERS: Nurse Practitioner Family; Emergency Provider Internal Medicine; PCP Internal Medicine
DX: I26.99 Other pulmonary embolism without acute cor pulmonale (principal)
CPT/HCPCS: 36415; 71045; 71275; 80048; 80076; 81001; 81025; 84484; 85025; 85379; 85610; 93005; 99284; Q9967

== ENCOUNTER 2021-08-27 15:24 | Emergency (ER) | payer MEDICAID, SELFPAY ==
--- NOTE | ~2021-08-27 | XR_ITS ---
EXAMINATION: XR CHEST CLINICAL INFORMATION: Shortness of breath. Covid positive. COMPARISON: August 19, 2021 TECHNIQUE: AP portable view of the chest was obtained. FINDINGS: There is an ill-defined interstitial markings seen in the lower lungs bilaterally with no confluent parenchymal disease and no significant groundglass density appreciated on this plain film study. Heart normal size. No evidence of pulmonary edema. No pneumothorax or pleural effusion. XR/XR chest 1V IMPRESSION: No significant acute parenchymal disease appreciated.
[2021-08-27 15:45] VITALS: BP 123/72; PULSE 100; RESP 20; TEMP 36.9; O2SAT 97; BMI 27.3
--- NOTE | 2021-08-27 17:05 | ED.URI ---
HPI - URI/Sore Throat General Chief Complaint: Upper Respiratory Symptoms Stated Complaint: +covid diff breathing Time Seen by Provider: 08/27/21 17:05 Related Data Previous Rx's Medication Instructions Recorded ferrous sulfate 325 mg (65 mg 325 mg PO DAILY #30 tab 06/25/21 iron) tablet ibuprofen 600 mg tablet 600 mg PO Q6H PRN #20 tab 06/25/21 norgestrel 0.3 mg-ethinyl 1 tab PO DAILY 28 Days #28 tab 07/21/21 estradiol 30 mcg tablet lorazepam 0.5 mg tablet 0.5 mg PO TID PRN #8 tab 08/19/21 rivaroxaban 15 mg (42)-20 mg (9) See Rx Instructions .ROUTE 08/19/21 tablets in a starter pack (Xarelto .COMPLEX #51 ea DVT-PE Treat 30d Start) Allergies Allergy/AdvReac Type Severity Reaction Status Date / Time No Known Allergies Allergy Verified 08/19/21 13:22 [No Known Allergies*] Review of Systems Review of Systems: Constitutional : No Weight loss, No Fever, No Chills, No Fatigue, No Malaise ENT/Mouth : No sore throat, No Rhinorrhea Eyes: No Eye Pain, No Swelling, No Redness Cardiovascular : No Chest Pain, No SOB, No Dyspnea on Exertion, No Orthopnea, No Edema, No Palpitations Respiratory : No Cough, No Sputum, No Wheezing Gastrointestinal : No Nausea, No Vomiting, No Diarrhea, No Constipation, No abdominal Pain, No Hematochezia, No Melena Genitourinary : No Dysuria, No Urinary Frequency, No Hematuria, Musculoskeletal : No joint pain, No Myalgias, No Joint Swelling Skin : No Skin Lesions, No rash Neuro : No Weakness, No Numbness, No Dizziness, No Headache Psych : No Anxiety/Panic, No Depression Heme/Lymph: No Bruising, No Bleeding,No Lymphadenopathy Endocrine : No Polyuria, No Polydipsia All other systems reviewed and are negative PMFSH Past Medical History Attestation statement: The following information was validated with the patient. Source: old records reviewed and nursing notes reviewed Surgical History H/O LEEP Tubal ligation status Family History Family History Father Lung cancer Social History Social History Patient Tobacco Use Status: Current everyday Tobacco user Advance Directives: No Advance Directives Information Provided: No Patient : No Physical Exam Vital Signs: Vital Signs: Last Vital Signs Temp 98.5 F 08/27/21 15:45 Pulse 100 08/27/21 15:45 Resp 20 08/27/21 15:45 BP 123/72 08/27/21 15:45 Pulse Ox 97 08/27/21 15:45 Body Mass Index 27.3 Discharge Plan Discharge Prescriptions: No Action ibuprofen 600 mg tablet 600 mg PO Q6H PRN (Reason: pain) Qty: 20 RF: 0 ferrous sulfate 325 mg (65 mg iron) tablet 325 mg PO DAILY Qty: 30 RF: 0 Xarelto DVT-PE Treat 30d Start 15 mg (42)- 20 mg (9) tablets,dose pack See Rx Instructions .ROUTE .COMPLEX Qty: 51 RF: 0 lorazepam 0.5 mg tablet 0.5 mg PO TID PRN (Reason: anxiety) Qty: 8 RF: 0 norgestrel-ethinyl estradiol 0.3-30 mg-mcg tablet 1 tab PO DAILY 28 Days Qty: 28 RF: 2
--- NOTE | 2021-08-27 17:18 | ED.URI ---
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 patient also was seen in the ED for sob symptoms and had CT of the chest due to slight elevation of d-dimer( ct was concern of mild filling defict in the subsegmetal branches and thought to be artifact). patient has no risks for dvt or PE, no recent travel or LE swelling or tenderness. Related Data Previous Rx's Medication Instructions Recorded ferrous sulfate 325 mg (65 mg 325 mg PO DAILY #30 tab 06/25/21 iron) tablet ibuprofen 600 mg tablet 600 mg PO Q6H PRN #20 tab 06/25/21 norgestrel 0.3 mg-ethinyl 1 tab PO DAILY 28 Days #28 tab 07/21/21 estradiol 30 mcg tablet lorazepam 0.5 mg tablet 0.5 mg PO TID PRN #8 tab 08/19/21 rivaroxaban 15 mg (42)-20 mg (9) See Rx Instructions .ROUTE 08/19/21 tablets in a starter pack (Xarelto .COMPLEX #51 ea DVT-PE Treat 30d Start) Allergies Allergy/AdvReac Type Severity Reaction Status Date / Time No Known Allergies Allergy Verified 08/19/21 13:22 [No Known Allergies*] Review of Systems Review of Systems: All other systems are reviewed and are negative Constitutional: Reports as per HPI and Reports no additional constitutional complaints Eyes: Reports as per HPI and Reports no additional eye complaints Reports system reviewed and no additional complaints, except as documented Cardiovascular: Reports as per HPI and Reports no additional cardiovascular complaints Respiratory: Reports as per HPI and Reports no additional respiratory complaints Gastrointestinal: Reports as per HPI and Reports no additional gastrointestinal complaints Genitourinary: Reports no additional female genitourinary complaints Musculoskeletal: Reports no additional musculoskeletal complaints Skin/Breast: Reports system reviewed and no additional complaints, except as docu Psychiatric: Reports no additional psychiatric complaints Endocrine: Reports no additional endocrine complaints Hematologic/Lymphatic: Reports no additional hematologic/lymphatic complaints Allergic/Immunologic: Reports no additional allergic/immunologic complaints Reports system reviewed and no additional complaints, except as documented and Reports Abnormal speech present Yes all other systems are reviewed and are negative [facility] [place] Past Medical History Surgical History H/O LEEP Tubal ligation status Family History Family History Father Lung cancer Social History Social History Patient Tobacco Use Status: Current everyday Tobacco user Advance Directives: No Advance Directives Information Provided: No Patient : No Physical Exam Vital Signs: Vital Signs: Last Vital Signs Temp 98.8 F 08/27/21 17:49 Pulse 91 08/27/21 17:49 Resp 18 08/27/21 17:49 BP 142/68 H 08/27/21 17:49 Pulse Ox 98 08/27/21 17:49 Body Mass Index 27.3 vital signs have been reviewed as appeared to be correct. Blood pressure normal. Heart rate normal. Respiration rate normal. Temperature normal. Oxygen saturation normal. Appearance: Alert. Oriented X3. No acute distress. Anxious. Head: Normal external exam. Normocephalic. Atraumatic. No Powell signs noted. No raccoon eyes noted Eyes: PERRLA. EOMI. Conjunctiva and sclera normal. Eyelids normal. ENT: TM's Normal. Pharynx normal. Uvula midline. Moist mucous membranes. No trismus noted. No drooling noted. No muffled voice noted. Neck: Normal inspection. Neck supple. FROM. No adenopathy. Thyroid Normal. No meningeal signs. No neck mass noted. CVS: Normal heart rate and rhythm. Heart sound normal. No murmurs noted. Pulses normal throughout. Respiratory: No respiratory distress. Painless inspiration. Breath sounds normal. No wheezes/rales/rhonchi noted. Chest nontender. No accessory muscle usage noted or decreased air movement noted. Abdomen: Soft and nontender. Bowel sounds normal in all 4 quadrants. No distention noted. No organomegaly noted. No visible injury noted. Back: No CVA tenderness. Full range of motion noted. Skin: Skin warm and dry. Normal skin color. Normal skin turgor. No rashes/lesions/lacerations noted. Extremities: No lower extremity edema. Extremities exhibit normal range of motion. Extremities nontender. Neuro: Oriented X 3. Cranial nerve exam: II-XII are grossly intact No motor deficit. No sensory deficit. Reflexes normal. Course Course Course Narrative: A/P. covid infection started about week ago, patient had full work up recently in the ED( including CT of the chest), patient has no risk for PE or any other pulmonary infection, xrays of chest today is negative for acute pulmonary issue, O2 sat is 97% on the room air, patient was educated of COVID and what to expect. MDM - URI/Sore Throat Imaging Data Chest x-ray: Radiologist's impression: no acute pathology. Discharge Plan Discharge Clinical Impression: COVID-19 Patient Disposition: Home, Self-Care Instructions: Covid-19 Viral Syndrome and Novel Coronavirus (ED) Hey/Ath Prescriptions: No Action ibuprofen 600 mg tablet 600 mg PO Q6H PRN (Reason: pain) Qty: 20 RF: 0 ferrous sulfate 325 mg (65 mg iron) tablet 325 mg PO DAILY Qty: 30 RF: 0 Xarelto DVT-PE Treat 30d Start 15 mg (42)- 20 mg (9) tablets,dose pack See Rx Instructions .ROUTE .COMPLEX Qty: 51 RF: 0 lorazepam 0.5 mg tablet 0.5 mg PO TID PRN (Reason: anxiety) Qty: 8 RF: 0 norgestrel-ethinyl estradiol 0.3-30 mg-mcg tablet 1 tab PO DAILY 28 Days Qty: 28 RF: 2 Referrals: [facility] [Primary Care Provider] - 2 days Interventions: ED Discharge Assessment Last Done: 08/27/21 17:50 Discharge Date/Time: 08/27/21 17:50
[2021-08-27 17:49] VITALS: BP 142/68; PULSE 91; RESP 18; TEMP 37.1; O2SAT 98
== END 2021-08-27 17:50 | disposition home or self-care (01) ==
PROVIDERS: Emergency Provider Emergency Medicine
DX: U07.1 COVID-19 (principal); F17.200 Nicotine dependence, unspecified, uncomplicated
CPT/HCPCS: 71045; 99283

== ENCOUNTER 2021-08-30 11:25 | Emergency (ER) | payer MEDICAID, SELFPAY ==
[2021-08-30 12:48] VITALS: BP 106/78; BP 132/80; PULSE 95; PULSE 98; RESP 22; TEMP 36.6; O2SAT 100; O2SAT 98; BMI 39.0
--- NOTE | 2021-08-30 14:59 | ED_ITS ---
HPI - General Adult General Chief complaint: General Medical Stated complaint: DIFF BREATHING,+COVID Time Seen by Provider: 08/30/21 11:31 Source: patient Mode of arrival: EMS Limitations: language barrier History of Present Illness HPI narrative: History and physical done with translater. Patient with 2 weeks of COVID and she feels short of breath. Patient with increased weakness. Patient denies asthama. She is still coughing. Patient is not vaccinated. Patient has had CXR times 3 including CTA which was negative for COVID lungs. Onset (ago): week(s) Severity: mild Exacerbating factors: other (deep breaths) Associated symptoms: cough and weakness Related Data Previous Rx's Medication Instructions Recorded ferrous sulfate 325 mg (65 mg 325 mg PO DAILY #30 tab 06/25/21 iron) tablet ibuprofen 600 mg tablet 600 mg PO Q6H PRN #20 tab 06/25/21 norgestrel 0.3 mg-ethinyl 1 tab PO DAILY 28 Days #28 tab 07/21/21 estradiol 30 mcg tablet lorazepam 0.5 mg tablet 0.5 mg PO TID PRN #8 tab 08/19/21 rivaroxaban 15 mg (42)-20 mg (9) See Rx Instructions .ROUTE 08/19/21 tablets in a starter pack (Xarelto .COMPLEX #51 ea DVT-PE Treat 30d Start) Allergies Allergy/AdvReac Type Severity Reaction Status Date / Time No Known Allergies Allergy Verified 08/19/21 13:22 [No Known Allergies*] PMFSH Past Medical History Surgical History H/O LEEP Tubal ligation status Family History Family History Father Lung cancer Social History Social History Alcohol intake: never Patient Tobacco Use Status: Current everyday Tobacco user Use of substances other than those prescribed or required for medical reasons: No Advance Directives: No Advance Directives Information Provided: No Patient : No Physical Exam Vital Signs: Vital Signs: Last Vital Signs Temp 97.9 F 08/30/21 12:48 Pulse 98 08/30/21 12:48 Resp 22 H 08/30/21 12:48 BP 106/78 08/30/21 12:48 Pulse Ox 100 08/30/21 12:48 Body Mass Index 39.0 Course Reevaluation(s) Reevaluation #1: patient 2 weeks into COVID normal vitals, normal labs will dc home Time: 17:10 Medical Decision Making Lab Data Result diagrams: 08/30/21 15:15 08/30/21 15:15 Labs: Lab Results 08/30/21 08/30/21 Range/Units 15:15 15:15 WBC 3.7 L (4.8-10.8) X10*3/uL RBC 4.19 L (4.20-5.50) X10*6/uL Hgb 11.4 L (12.0-16.0) g/dl Hct 35.8 L (37.0-47.0) % MCV 85.4 (80.0-98.0) fL MCH 27.2 (27.0-33.0) pg MCHC 31.8 (31.0-35.0) g/dl RDW 13.2 (11.0-16.0) % Plt Count 216 D (160-400) X10*3/uL MPV 10.2 (9.4-12.3) fL Immature Gran % (Auto) 0.3 (0.0-0.4) % Neut % (Auto) 69.4 (45-73) % Lymph % (Auto) 22.9 (20-40) % [place] % (Auto) 7.1 (2-11) % Eos % (Auto) 0.0 (0-4) % Baso % (Auto) 0.3 (0-2) % Lymph # (Auto) 0.8 L (1.2-4.9) X10*3/uL [place] # (Auto) 0.3 (0.1-1.2) X10*3/uL Eos # (Auto) 0.0 (0.0-0.4) X10*3/uL Baso # (Auto) 0.0 (0.0-0.2) X10*3/uL Abs Immat Gran (auto) 0.01 (0.00-0.03) X10*3/uL Absolute Neuts (auto) 2.6 (2.0-8.3) x10*3/uL Absolute Nucleated RBC 0.000 (0.0-0.012) X10*3/uL Nucleated RBC % (auto) 0.0 (0.0-0.2) /100WBC Sodium 140 (135-145) mmol/L Potassium 4.5 (3.3-5.1) mmol/L Chloride 105 (96-108) mmol/L Carbon Dioxide 26 (22-29) mmol/L Anion Gap 14 (12-20) BUN 5 L (9-16) mg/dL Creatinine 0.67 (0.5-1.4) mg/dL Estim Creat Clear Calc 113.1 Estimated GFR > 60 Random Glucose 94 (60-115) mg/dL Calcium 8.6 D (8.4-10.2) mg/dL Discharge Plan Discharge Clinical Impression: COVID-19 Patient Disposition: Home, Self-Care Instructions: COVID-19 (Coronavirus Disease 2019) (ED) Prescriptions: No Action ibuprofen 600 mg tablet 600 mg PO Q6H PRN (Reason: pain) Qty: 20 RF: 0 ferrous sulfate 325 mg (65 mg iron) tablet 325 mg PO DAILY Qty: 30 RF: 0 Xarelto DVT-PE Treat 30d Start 15 mg (42)- 20 mg (9) tablets,dose pack See Rx Instructions .ROUTE .COMPLEX Qty: 51 RF: 0 lorazepam 0.5 mg tablet 0.5 mg PO TID PRN (Reason: anxiety) Qty: 8 RF: 0 norgestrel-ethinyl estradiol 0.3-30 mg-mcg tablet 1 tab PO DAILY 28 Days Qty: 28 RF: 2 Referrals: Ana M Harrington MD [Primary Care Provider] - 1 week
[2021-08-30] MEDS: Ondansetron ODT 4 MG TAB.RAPDIS TRANSLINGU (15:13)
[2021-08-30 15:23] LABS: MANUAL DIFF FLAG NO
[2021-08-30 15:24] LABS: Basophils Percent Auto 0.3 % (0-2); Hematocrit 35.8 % (37.0-47.0); Hemoglobin 11.4 g/dl (12.0-16.0); Imm Gran Abs Auto 0.01 X10*3/uL (0.00-0.03); Imm Gran Pct Auto 0.3 % (0.0-0.4); Lymphocytes Absolute Auto 0.8 X10*3/uL (1.2-4.9); Lymphocytes Percent Auto 22.9 % (20-40); Mean Corpuscular HGB Conc 31.8 g/dl (31.0-35.0); Mean Corpuscular Hemoglobin 27.2 pg (27.0-33.0); Mean Corpuscular Volume 85.4 fL (80.0-98.0); Mean Platelet Volume 10.2 fL (9.4-12.3); Monocytes Absolute Auto 0.3 X10*3/uL (0.1-1.2); Monocytes Percent Auto 7.1 % (2-11); Neutrophils Absolute Auto 2.6 x10*3/uL (2.0-8.3); Neutrophils Percent Auto 69.4 % (45-73); Platelet Count 216 X10*3/uL (160-400); Red Blood Count 4.19 X10*6/uL (4.20-5.50); Red Cell Distribution Width 13.2 % (11.0-16.0); White Blood Count 3.7 X10*3/uL (4.8-10.8)
[2021-08-30 15:41] LABS: Anion Gap 14 (12-20); Blood Urea Nitrogen 5 mg/dL (9-16); Calcium 8.6 mg/dL (8.4-10.2); Carbon Dioxide 26 mmol/L (22-29); Chloride 105 mmol/L (96-108); Creatinine Clr Calc Pharmacy 113.1; Estimated Glomerular Filt Rate > 60; Glucose Random 94 mg/dL (60-115); Potassium 4.5 mmol/L (3.3-5.1); Sodium 140 mmol/L (135-145)
== END 2021-08-30 17:45 | disposition home or self-care (01) ==
PROVIDERS: Emergency Provider Emergency Medicine; PCP Internal Medicine
DX: U07.1 COVID-19 (principal); R06.02 Shortness of breath
CPT/HCPCS: 36415; 80048; 85025; 99283; 99284

== ENCOUNTER 2021-09-03 13:08 | Outpatient (REF) | payer MEDICAID, SELFPAY | END 2021-09-03 13:09 | disposition home or self-care (01) | LOC: HO.LAB 13:08 | PROVIDERS: PCP Internal Medicine; Visit Provider Internal Medicine | DX: Z20.822 Contact with and (suspected) exposure to COVID-19 (principal) | CPT/HCPCS: C9803; U0003; U0005 ==

== ENCOUNTER 2021-11-01 08:36 | Outpatient (REF) | payer MEDICAID, SELFPAY ==
[2021-11-01 09:21] LABS: Binax Internal Control QC Valid; Binax Now Covid-19 Ag Negative (Negative)
== END 2021-11-01 08:37 | disposition home or self-care (01) ==
LOC: HO.LAB 08:36
PROVIDERS: Visit Provider Internal Medicine
DX: Z20.822 Contact with and (suspected) exposure to COVID-19 (principal)
CPT/HCPCS: C9803

== ENCOUNTER 2022-01-04 10:08 | Outpatient (REF) | payer MEDICAID, SELFPAY ==
[2022-01-04 14:49] LABS: CT PCR NOT DETECTED (Not Detect.); NG PCR NOT DETECTED (Not Detect.)
== END 2022-01-04 10:09 | disposition home or self-care (01) ==
LOC: HO.LAB 10:08
PROVIDERS: PCP Internal Medicine; Visit Provider Obstetrics & Gynecology
DX: N85.00 Endometrial hyperplasia, unspecified (principal); N93.9 Abnormal uterine and vaginal bleeding, unspecified
CPT/HCPCS: 58100; 81025; 87491; 87591; 88305; 99212

== ENCOUNTER 2022-02-02 10:02 | Outpatient (REF) | payer MEDICAID, SELFPAY ==
--- NOTE | ~2022-02-02 | CT_ITS ---
EXAMINATION: CT ANGIOGRAM OF THE CHEST WITH AND WITHOUT CONTRAST (CT PULMONARY ANGIOGRAM FOR PE) CLINICAL INFORMATION: Abnormal findings on imaging. COMPARISON: Chest x-ray of 08/27/2021 and 08/19/2021. TECHNIQUE: Prior to contrast administration, noncontrast localization images were obtained. Subsequently, multidetector volumetric imaging was performed from the thoracic inlet to below the diaphragms following the administration of 75 mL Omnipaque 350 intravenous contrast. No contrast reaction reported. Sagittal, coronal, and MIP oblique sagittal reformatted images were obtained on the CT workstation, uploaded to PACS, and reviewed. This CT examination was performed using dose optimization techniques as appropriate, variously including the following: *Automated exposure control *Adjustment of mA and/or kV according to patient size (this includes techniques or standardized protocols for targeted exams where dose is matched to indication/reason for exam; i.e. extremities or head) *Use of iterative reconstruction technique DLP: 106 mGy-cm FINDINGS: QUALITY OF STUDY/CONTRAST BOLUS: Satisfactory. PULMONARY ARTERIES: No central or segmental pulmonary emboli. THORACIC AORTA: No aneurysm or dissection. LUNG: No focal consolidation or suspicious masses. There is interstitial prominence. There is mild central bronchial wall thickening. No bronchiectasis. PLEURA: No pleural effusion or pneumothorax. MEDIASTINUM: Normal heart size. No pericardial effusion. No hilar or mediastinal lymphadenopathy. No evidence of septal bowing or right heart strain. CHEST WALL/AXILLA: No axillary or internal mammary lymphadenopathy. OSSEOUS STRUCTURES: No acute or suspicious osseous abnormality. UPPER ABDOMEN: Within segment 4B of the liver there is a 1 cm low-density region likely related to a cyst or hemangioma. This is stable compared to previous study of 09/03/2019. No reflux of contrast into the hepatic veins to suggest elevated right heart pressures. CT/CT angio chest PE protocol IMPRESSION: No evidence of acute pulmonary artery embolus. No evidence of thoracic aortic dissection. No significant acute parenchymal disease. 1 cm low-density hepatic lesion segment 4B. This is stable compared to previous study of 09/03/2019. VTE: Negative
[2022-02-02] MEDS: iohexoL 350 MG/ML 100 ML INFUS..BTL IV (16:18)
== END 2022-02-02 10:03 | disposition home or self-care (01) ==
LOC: HO.CT 10:02
PROVIDERS: PCP Internal Medicine; Visit Provider Internal Medicine
DX: R93.89 Abnormal findings on diagnostic imaging of other specified body structures (principal)
CPT/HCPCS: 71275; Q9967

== ENCOUNTER → 2022-02-21 10:21 | Outpatient (BNVA) | payer MEDICAID, SELFPAY | PROVIDERS: PCP Internal Medicine; Visit Provider Obstetrics & Gynecology | DX: N85.00 Endometrial hyperplasia, unspecified (principal); N84.0 Polyp of corpus uteri | CPT/HCPCS: 99212 ==

== ENCOUNTER 2022-03-05 10:10 | Emergency (ER) | payer MEDICAID, SELFPAY ==
[2022-03-05 10:17] VITALS: BP 145/96; PULSE 90; RESP 18; TEMP 36; O2SAT 100; BMI 29.4
[2022-03-05 11:00] LABS: COVID-19 Test Negative (Negative)
[2022-03-05 11:00] LABS: IDNOW Serial# 9DB6401D; Influenza A Negative (Negative); Influenza B2 Negative (Negative)
[2022-03-05 11:21] LABS: IDNOW Serial# 08D9AD1C; Strep A Nucleic Acid Negative (Negative)
--- NOTE | 2022-03-05 11:23 | ED_ITS ---
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 Patient states that for the last few days, her right ear has been bothering her and she feels like it is also making her throat hurt. Patient denies any dizziness, lightheadedness, abdominal pain, nausea, vomiting, fever, chills, blurry vision, double vision, loss of vision, chest pain, difficulty breathing, shortness of breath, back pain, night sweats, pain with urination, increased urinary frequency, increased urinary urgency, blood in her urine or stool, syncope or a near syncopal episode, recent trauma or falls, bowel incontinence, bladder incontinence, bowel retention, bladder retention, or any other complaints at this time. Onset (ago): day(s) Radiation: non-radiation Severity: mild Severity scale (1-10): 3 Quality: dull Pain Consistency: constant Relieving factors: none Exacerbating factors: none Associated symptoms: denies other symptoms Treatments prior to arrival: none Related Data Previous Rx's Medication Instructions Recorded medroxyprogesterone 10 mg tablet 10 mg PO DAILY 10 Days #30 tab 02/21/22 (Provera) amoxicillin 875 mg tablet 875 mg PO BID 5 Days #10 tab 03/05/22 Allergies Allergy/AdvReac Type Severity Reaction Status Date / Time No Known Allergies Allergy Verified 02/21/22 10:29 [No Known Allergies*] Review of Systems Constitutional: Constitutional: Reports no additional constitutional complaints, Denies chills, Denies fever(s) and Denies night sweats Eyes: Eyes: Reports no additional eye complaints, Denies blurry vision, Denies change in vision, Denies diplopia, Denies eye discharge, Denies loss of vision and Denies eye pain ENT: Denies dizziness Comments: right ear pain Cardiovascular: Cardiovascular: Reports no additional cardiovascular complaints, Denies chest pain, Denies lightheadedness, Denies Loss of Consciousness and Denies dyspnea Respiratory: Respiratory: Reports no additional respiratory complaints and Denies dyspnea Gastrointestinal: Gastrointestinal: Reports no additional gastrointestinal complaints, Denies abdominal pain, Denies melena, Denies hematochezia, Denies change in bowel habits and Denies change in stool character Genitourinary: Genitourinary: Denies hematuria, Denies urinary frequency, Denies dysuria, Denies urinary incontinence, Denies urinary hesitancy and Denies urinary urgency Musculoskeletal: Musculoskeletal: Reports no additional musculoskeletal complaints, Denies numbness and Denies tingling Neurologic: Denies dizziness, Denies loss of vision, Denies numbness and Denies tingling Psychiatric: Psychiatric: Reports no additional psychiatric complaints Endocrine: Endocrine: Reports no additional endocrine complaints Hematologic/Lymphatic: Hematologic/Lymphatic: Reports no additional hematologic/lymphatic complaints Allergic/Immunologic: Allergic/Immunologic: Reports no additional allergic/immunologic complaints [facility] Past Medical History Attestation statement: The following information was validated with the patient. Source: old records reviewed Medical History Anemia Surgical History H/O LEEP Tubal ligation status Family History Family History Father Lung cancer Social History Social History Alcohol intake: never Patient Tobacco Use Status: Current everyday Tobacco user Advance Directives: No Advance Directives Information Provided: No Physical Exam ED Vital Signs: Vital Signs - 24 hr 03/05/22 10:17 Temperature 96.8 F Pulse Rate 90 Respiratory Rate 18 Blood Pressure 145/96 H Pulse Oximetry 100 BMI result Body Mass Index 29.4 Const General: cooperative, no acute distress, alert and awake Nutritional Appearance: well nourished Orientation/consciousness: patient oriented x3 Limitations: no limitations HENMT Head: Yes normal to inspection and Yes atraumatic Ears: hearing grossly normal bilaterally, external ears normal and TM abnormal erythematous on the right General nose exam: Normal external nose present, no nasal discharge noted and no epistaxis Face and sinus: Yes normal facial exam, No abrasion and No laceration Mouth: Normal oral and palatal mucosa present, no drooling and no muffled voice Eyes General: appearance normal, both eyes and all related structures Periorbital: periorbital findings normal Eyelids: Yes eyelids normal Conjunctivae: conjunctivae normal Pupils: Equal, round and reactive pupils present EOM: EOMs intact bilaterally Neck Neck: Yes normal visual inspection, Yes full ROM and Yes no lymphadenopathy Chest Chest palpation & inspection: normal inspection of the chest Resp Effort & Inspection: normal respiratory effort and able to speak in complete sen tences Auscultation: clear to auscultation bilaterally Cardio Rate: regular rate Rhythm: regular rhythm GI Inspection: Yes normal to inspection Neuro General: patient oriented x3 and moves all extremities Cranial nerves: Yes Equal, round and reactive pupils present Cognition (Neuro): normal cognition Motor exam (neuro): 5/5 motor strength present throughout Sensory Exam: Normal double simultaneous stimulation for sensation Coordination: [id number] test normal Extrem General: Yes normal to inspection, Yes full ROM and Yes capillary refill normal Psych Appearance: grossly normal Mental Status: mental status grossly normal Affect: normal affect Attitude: cooperative Thought process: Normal thought process present Thought content: Normal thought content present Insight: Good insight present (Psych) Medical Decision Making MDM Narrative Medical decision making narrative: Patient is a 41 year old female presenting to the emergency department today with right ear pain. Patient's physical exam showed an erythematous right TM but was otherwise unremarkable. Patient's blood work was unremarkable. I explained my physical exam findings as well as all test results to the patient. I answered all questions asked by the patient. I stressed the importance of the patient taking her medication as prescribed. I stressed the importance of the patient following up with her primary care provider. I stressed the importance of the patient returning to the emergency department immediately if her symptoms were to worsen or if she were to develop any dizziness, shortness of breath, difficulty breathing, chest pain, blurry vision, loss of vision, nausea, vomiting, abdominal pain, fever, chills, back pain, or any other complaints. Patient verbalized agreement and understanding with this treatment plan and discharge. Differential Diagnosis Differential Diagnosis: otitis media, URI Medical Records Medical records reviewed: Yes I reviewed the patient's medical records. Lab Data Lab results reviewed: Yes I reviewed the patient's lab results. Result diagrams: 03/05/22 11:21 03/05/22 11:21 Labs: Lab Results 03/05/22 03/05/22 03/05/22 Range/Units 10:24 10:24 10:25 WBC (4.8-10.8) X10*3/uL RBC (4.20-5.50) X10*6/uL Hgb (12.0-16.0) g/dl Hct (37.0-47.0) % MCV (80.0-98.0) fL MCH (27.0-33.0) pg MCHC (31.0-35.0) g/dl RDW (11.0-16.0) % Plt Count (160-400) X10*3/uL MPV (9.4-12.3) fL Immature Gran % (Auto) (0.0-0.4) % Neut % (Auto) (45-73) % Lymph % (Auto) (20-40) % [place] % (Auto) (2-11) % Eos % (Auto) (0-4) % Baso % (Auto) (0-2) % Lymph # (Auto) (1.2-4.9) X10*3/uL [place] # (Auto) (0.1-1.2) X10*3/uL Eos # (Auto) (0.0-0.4) X10*3/uL Baso # (Auto) (0.0-0.2) X10*3/uL Abs Immat Gran (auto) (0.00-0.03) X10*3/uL Absolute Neuts (auto) (2.0-8.3) x10*3/uL Absolute Nucleated RBC (0.0-0.012) X10*3/uL Nucleated RBC % (auto) (0.0-0.2) /100WBC Sodium (135-145) mmol/L Potassium (3.3-5.1) mmol/L Chloride (96-108) mmol/L Carbon Dioxide (22-29) mmol/L Anion Gap (12-20) BUN (9-16) mg/dL Creatinine (0.5-1.4) mg/dL Estim Creat Clear Calc Estimated GFR Random Glucose (60-115) mg/dL Calcium (8.4-10.2) mg/dL Total Bilirubin (0.0-1.0) mg/dL AST (5-31) U/L ALT (0-31) U/L Alkaline Phosphatase (39-117) U/L Total Protein (6.5-8.0) g/dL Albumin (3.5-5.0) g/dL COVID-19 (DESTINY) Negative (Negative) COVID-19 Clin Com See Note Influenza Type A (LORIE) Negative (Negative) Influenza Type B (LORIE) Negative (Negative) Influenza A & B Note See Note S. pyogenes GrpA LORIE Negative (Negative) 03/05/22 03/05/22 Range/Units 11:21 11:21 WBC 11.1 H (4.8-10.8) X10*3/uL RBC 4.34 (4.20-5.50) X10*6/uL Hgb 12.1 (12.0-16.0) g/dl Hct 37.7 (37.0-47.0) % MCV 86.9 (80.0-98.0) fL MCH 27.9 (27.0-33.0) pg MCHC 32.1 (31.0-35.0) g/dl RDW 13.9 (11.0-16.0) % Plt Count 312 D (160-400) X10*3/uL MPV 9.4 (9.4-12.3) fL Immature Gran % (Auto) 0.4 (0.0-0.4) % Neut % (Auto) 71.7 (45-73) % Lymph % (Auto) 18.1 L (20-40) % [place] % (Auto) 7.9 (2-11) % Eos % (Auto) 1.5 (0-4) % Baso % (Auto) 0.4 (0-2) % Lymph # (Auto) 2.0 (1.2-4.9) X10*3/uL [place] # (Auto) 0.9 (0.1-1.2) X10*3/uL Eos # (Auto) 0.2 (0.0-0.4) X10*3/uL Baso # (Auto) 0.0 (0.0-0.2) X10*3/uL Abs Immat Gran (auto) 0.04 H (0.00-0.03) X10*3/uL Absolute Neuts (auto) 8.0 (2.0-8.3) x10*3/uL Absolute Nucleated RBC 0.000 (0.0-0.012) X10*3/uL Nucleated RBC % (auto) 0.0 (0.0-0.2) /100WBC Sodium 139 (135-145) mmol/L Potassium 4.3 (3.3-5.1) mmol/L Chloride 105 (96-108) mmol/L Carbon Dioxide 27 (22-29) mmol/L Anion Gap 11 L (12-20) BUN 9 (9-16) mg/dL Creatinine 0.74 (0.5-1.4) mg/dL Estim Creat Clear Calc 88.0 Estimated GFR > 60 Random Glucose 87 (60-115) mg/dL Calcium 9.3 D (8.4-10.2) mg/dL Total Bilirubin 0.3 (0.0-1.0) mg/dL AST 17 (5-31) U/L ALT 23 (0-31) U/L Alkaline Phosphatase 65 (39-117) U/L Total Protein 7.4 (6.5-8.0) g/dL Albumin 4.2 (3.5-5.0) g/dL COVID-19 (DESTINY) (Negative) COVID-19 Clin Com Influenza Type A (LORIE) (Negative) Influenza Type B (LORIE) (Negative) Influenza A & B Note S. pyogenes GrpA LORIE (Negative) Discharge Plan Discharge Clinical Impression: Otitis media Patient Disposition: Home, Self-Care Instructions: Ear Infection (ED) Additional Instructions: Follow up with your primary care provider. Return to the emergency department immediately if your symptoms worsen or if you develop any dizziness, shortness of breath, difficulty breathing, chest pain, blurry vision, loss of vision, nausea, vomiting, abdominal pain, fever, chills, back pain, or any other complaints. Prescriptions: New amoxicillin 875 mg tablet 875 mg PO BID 5 Days Qty: 10 0RF No Action medroxyprogesterone [Provera] 10 mg tablet 10 mg PO DAILY 10 Days Qty: 30 0RF Rx Instructions: start Provera 1 tablet daily from day 15-24 cyclically every months, day 1 being 1st day of menses Referrals: [facility] [Primary Care Provider] - Interventions: ED Discharge Assessment Last Done: 03/05/22 12:24 Discharge Date/Time: 03/05/22 12:26 Print Language: Slovenian
[2022-03-05 11:25] LABS: MANUAL DIFF FLAG NO
[2022-03-05 11:26] LABS: Basophils Percent Auto 0.4 % (0-2); Eosinophils Absolute Auto 0.2 X10*3/uL (0.0-0.4); Eosinophils Percent Auto 1.5 % (0-4); Hematocrit 37.7 % (37.0-47.0); Hemoglobin 12.1 g/dl (12.0-16.0); Imm Gran Abs Auto 0.04 X10*3/uL (0.00-0.03); Imm Gran Pct Auto 0.4 % (0.0-0.4); Lymphocytes Percent Auto 18.1 % (20-40); Mean Corpuscular HGB Conc 32.1 g/dl (31.0-35.0); Mean Corpuscular Hemoglobin 27.9 pg (27.0-33.0); Mean Corpuscular Volume 86.9 fL (80.0-98.0); Mean Platelet Volume 9.4 fL (9.4-12.3); Monocytes Absolute Auto 0.9 X10*3/uL (0.1-1.2); Monocytes Percent Auto 7.9 % (2-11); Neutrophils Percent Auto 71.7 % (45-73); Platelet Count 312 X10*3/uL (160-400); Red Blood Count 4.34 X10*6/uL (4.20-5.50); Red Cell Distribution Width 13.9 % (11.0-16.0); White Blood Count 11.1 X10*3/uL (4.8-10.8)
[2022-03-05 11:44] LABS: Alanine Aminotransferase 23 U/L (0-31); Albumin Level 4.2 g/dL (3.5-5.0); Alkaline Phosphatase 65 U/L (39-117); Anion Gap 11 (12-20); Aspartate Amino Transferase 17 U/L (5-31); Bilirubin Total 0.3 mg/dL (0.0-1.0); Blood Urea Nitrogen 9 mg/dL (9-16); Calcium 9.3 mg/dL (8.4-10.2); Carbon Dioxide 27 mmol/L (22-29); Chloride 105 mmol/L (96-108); Estimated Glomerular Filt Rate > 60; Glucose Random 87 mg/dL (60-115); Potassium 4.3 mmol/L (3.3-5.1); Sodium 139 mmol/L (135-145); Total Protein 7.4 g/dL (6.5-8.0)
== END 2022-03-05 12:26 | disposition home or self-care (01) ==
PROVIDERS: Emergency Provider Emergency Medicine
DX: H66.93 Otitis media, unspecified, bilateral (principal); Z79.899 Other long term (current) drug therapy; Z20.822 Contact with and (suspected) exposure to COVID-19
CPT/HCPCS: 80053; 85025; 87502; 87635; 87651; 99282

== ENCOUNTER 2022-04-21 15:45 | Outpatient (REF) | payer MEDICAID, SELFPAY ==
--- NOTE | ~2022-04-21 | MR_ITS ---
EXAMINATION: BRAIN MRI WITHOUT CONTRAST CLINICAL INFORMATION: Forgetfulness. Unable to find words. COMPARISON: No relevant prior imaging. TECHNIQUE: Multiplanar MR imaging of the brain was performed without contrast. FINDINGS: There is no intracranial mass effect or midline shift. No abnormal extra-axial collection. Lateral and third ventricles are normal. No hydrocephalus. Midline structures including the cervicomedullary junction are normal. No acute bone marrow signal changes. There are a few scattered nonspecific foci of T2 FLAIR signal hyperintensity within the supratentorial white matter. No acute territorial infarct. No pathological magnetic susceptibility artifact. Intracranial vascular flow voids are maintained. There is no mastoid or middle ear effusion. No active paranasal sinus disease. Globes and orbits are symmetric. MR/MR head/brain wo con IMPRESSION: Normal brain MRI.
== END 2022-04-21 15:46 | disposition home or self-care (01) ==
LOC: HO.MRI 15:45
PROVIDERS: Visit Provider Internal Medicine
DX: R41.89 Other symptoms and signs involving cognitive functions and awareness (principal)
CPT/HCPCS: 70551

== ENCOUNTER → 2022-05-09 13:57 | Outpatient (BNVA) | payer MEDICAID, SELFPAY | PROVIDERS: PCP Internal Medicine; Visit Provider Obstetrics & Gynecology | DX: N84.0 Polyp of corpus uteri (principal) | CPT/HCPCS: 99212 ==

== ENCOUNTER 2022-05-13 05:55 | Day surgery (SDC) | payer MEDICAID, SELFPAY ==
[2022-05-06 13:04] VITALS: BMI 30.4
--- NOTE | 2022-05-11 14:35 | P.CONAN_ITS ---
Documented by User: Francheska Ron NP 05/11/22 14:36 HPI - Anesthesia Eval Consult details Narrative: 41yo F for D&C Hysteroscopy,poss polypectomy/myomectomy PMF Active Problems Active Problems: All Active Problems (Updated 03/06/22 @ 00:01 by Liu Cruz) Endometrial polyp (Acute) COVID-19 (Acute) Endometrial hyperplasia without atypia (Acute) Abnormal uterine bleeding (AUB) (Acute) Amenorrhea (Acute) Past Medical History Medical History Anemia Family History Family History Father Lung cancer Surgical History Surgical History H/O LEEP Tubal ligation status Social History Social History Alcohol intake: never Patient Tobacco Use Status: Current everyday Tobacco user Tobacco use type: Cigarette Cigarettes Per Day: 3.0 Second Hand Smoke Exposure: No Use of substances other than those prescribed or required for medical reasons: No Are you DNR?: No Advance Directives: No Advance Directives Information Provided: Yes Advance Directives on File: No Meds Allergies Allergy/AdvReac Type Severity Reaction Status Date / Time No Known Allergies Allergy Verified 02/21/22 10:29 [No Known Allergies*] Exam Exam Date and Time: May 11, 2022 1435 Height,Weight and Vital Signs: Height 5 ft Weight 70.76 kg Pertinent Lab Results Pertinent Lab Results: Laboratory Tests 03/05/22 03/05/22 11:21 11:21 WBC 11.1 H Hgb 12.1 Hct 37.7 Plt Count 312 D Sodium 139 Potassium 4.3 Chloride 105 Carbon Dioxide 27 BUN 9 Creatinine 0.74 Assessment and Plan Assessment Anesthesia Assessment: Chart Reviewed Documented by User: Jamaal Negrete MD 05/13/22 07:20 [facility] Past Medical History Medical History Anemia Family History Family History Father Lung cancer Family history of problems with anesthesia: No Surgical History Surgical History H/O LEEP Tubal ligation status History of Problems with Anesthesia: No Social History Social History Alcohol intake: never Patient Tobacco Use Status: Current everyday Tobacco user Tobacco use type: Cigarette Cigarettes Per Day: 3.0 Second Hand Smoke Exposure: No Use of substances other than those prescribed or required for medical reasons: No Are you DNR?: No Advance Directives: No Advance Directives Information Provided: Yes Advance Directives on File: No Meds Allergies Allergy/AdvReac Type Severity Reaction Status Date / Time No Known Allergies Allergy Verified 02/21/22 10:29 [No Known Allergies*] Exam Airway Mallampati Class: I TM Dist: >3cm Neck ROM: Full Heart: rrr Lungs: clear Assessment and Plan Final Anesthetic Review Family History of Problems with Anesthesia: No History of Problems with Anesthesia: No NPO: Yes ASA Class: I Final Preanesthetic Review: No Changes in Pt Med Stat, Meds/Allgs Chart Reviewed, Consent Obtained/Reviewed and Anes Risks/Benef Reviewed Patient Risk: Low Anesthetic Plan Anesthetic Plan: GA Disposition: Standard PACU
[2022-05-13] VITALS (7 sets, daily range): BP systolic 98–108; BP diastolic 59–71; PULSE 65–86; RESP 14–18; TEMP 36.1–36.4; O2SAT 97–100
[2022-05-13 06:32] LABS: UPreg QC Valid YES; Urine Pregnancy NEGATIVE (NEGATIVE)
[2022-05-13] MEDS: Lactated Ringers 1,000 ML 100 ML IVCONT (06:40)
--- NOTE | 2022-05-13 07:32 | MHC.SHP ---
Pre-Procedural Eval Section A Date of Service: 05/13/22 The patient is an INPATIENT: No Changes since office visit: No Cold of Flu in the past 2 weeks, No New Medical Problems, No Changes in Medication and No Patient answered all questions The History & Physical has been completed within 30 days and I have reviewed it.: Yes Section B Chief Complaint: Endometrial hyperplasia, unspecified Allergies: Allergies Allergy/AdvReac Type Severity Reaction Status Date / Time No Known Allergies Allergy Verified 02/21/22 10:29 [No Known Allergies*] Plan Diagnosis/Plan: Unchanged I have reviewed the history and physical and performed a pertinent physical examination on my patient. No changes have occurred unless specified.
--- NOTE | 2022-05-13 07:59 | PM.OP ---
Brief Operative Note Date of Service: 05/13/22 Pre-op diagnosis: AUB possible polyp Post-op diagnosis: same (Normal endometrial cavity) Procedure: Hysteroscopy D&C Surgeon: Kalin Portillo MD Anesthesia: GLMA Was an Counterintelligence/Humint Specialist used for this Procedure?: No Estimated blood loss (mL): 0 Pathology: other (Endometrial Scrapping. ) Condition: stable Disposition: PACU
--- NOTE | 2022-05-13 08:00 | W.PM.OPN ---
Operative Note Operative Note Date of Service: 05/13/22 Narrative: Preop Diagnosis: Abnormal uterine bleeding Operation: Diagnostic Hysteroscopy, Dilataion & Curettage Post Op Diagnosis: Normal endometrial cavity QBL: Minimal Anesthesia: GLMA Surgeon: Kalin Portillo MD Motorcycle Riding Instructor: None Complication: None Pathology: Endometrial Scrapings Procedure: The patient was put in the dorsal lithotomy position, scrubbed, and draped in the usual manner. A sterile speculum was inserted in the patient's vagina. The anterior lip of the cervix was grasped with a single tooth tenaculum. The cervix was dilated up to 5 mm, then the scope was inserted in the patient's uterus. Inspection revealed Normal endometrial cavity. The Myosure Reach device was used; sharp curettings was carried on afterwards with moderate amount of tissues retrieved. At the end of the procedure, all instruments were taken out of the patient uterine and vaginal cavity. The single tooth tenaculum was removed and homeostasis was assured using pressure,. The patient tolerated the procedure well and was transferred to the PACU in a stable condition.
== END 2022-05-13 09:35 | disposition home or self-care (01) ==
PROVIDERS: PCP Internal Medicine; Visit Provider Obstetrics & Gynecology
PROC: 0UDB8ZZ Extraction of Endometrium, Via Natural or Artificial Opening Endoscopic (ICD-10-PCS; CPT 58558; principal; 2022-05-13 07:30)
DX: N93.9 Abnormal uterine and vaginal bleeding, unspecified (principal); N85.00 Endometrial hyperplasia, unspecified; D64.9 Anemia, unspecified; Z98.51 Tubal ligation status; F17.210 Nicotine dependence, cigarettes, uncomplicated
CPT/HCPCS: 58558; 81025; 88305; J1100; J2250; J2405; J3010

== ENCOUNTER → 2022-06-15 14:51 | Outpatient (BNVA) | payer MEDICAID, SELFPAY | PROVIDERS: PCP Internal Medicine; Visit Provider Obstetrics & Gynecology | DX: N84.0 Polyp of corpus uteri (principal) | CPT/HCPCS: 99212 ==

== ENCOUNTER 2023-03-18 18:21 | Emergency (ER) | payer MEDICAID, SELFPAY ==
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
[2023-03-18 19:08] VITALS: BP 144/96; PULSE 105; RESP 18; TEMP 37.2; O2SAT 99; BMI 27.3
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
== END 2023-03-19 07:40 | disposition home or self-care (01) ==
PROVIDERS: Emergency Provider Emergency Medicine
DX: S46.011A Strain of muscle(s) and tendon(s) of the rotator cuff of right shoulder, initial encounter (principal); X50.3XXA Overexertion from repetitive movements, initial encounter; F17.210 Nicotine dependence, cigarettes, uncomplicated; Y93.89 Activity, other specified; Y92.9 Unspecified place or not applicable; Y99.9 Unspecified external cause status
CPT/HCPCS: 73030; 99281; 99283

== ENCOUNTER 2023-07-11 10:22 | Outpatient (REF) | payer MEDICAID, SELFPAY ==
[2023-07-11 12:43] LABS: C Reactive Protein 0.77 mg/dL (< or = 0.50)
[2023-07-11 13:01] LABS: Erythrocyte Sedimentation Rate 12 MM/HR (0-20)
[2023-07-13 05:43] LABS: Lyme Abs Screen <0.90 index
[2023-07-13 14:43] LABS: Anti Nuclear Antibody Screen NEGATIVE (NEGATIVE)
== END 2023-07-11 10:23 | disposition home or self-care (01) ==
LOC: HO.HHCL 10:22
PROVIDERS: Visit Provider Internal Medicine
DX: M25.50 Pain in unspecified joint (principal)
CPT/HCPCS: 36415; 85652; 86038; 86140; 86617; 86618

== ENCOUNTER 2023-08-01 10:59 | Emergency (ER) | payer MEDICAID, SELFPAY ==
--- NOTE | ~2023-08-01 | US_ITS ---
EXAMINATION: US ABDOMEN LIMITED CLINICAL INFORMATION: Right upper quadrant pain.. COMPARISON: None available. TECHNIQUE: Real-time imaging of the right upper quadrant abdominal viscera. FINDINGS: PANCREAS: The visualized portions of the pancreas are unremarkable. LIVER: Visualized portions of the liver are normal in appearance. There is no intrahepatic biliary duct dilatation seen. GALLBLADDER: Normal. The gallbladder is physiologically distended without evidence of stones, sludge, polyps, wall thickening or pericholecystic fluid. COMMON BILE DUCT: The common bile duct measures 5 mm. RIGHT KIDNEY: Normal. No hydronephrosis. No renal calculi or focal parenchymal lesions. The kidney measures cm in maximum dimension. FREE FLUID: None. US/US abdomen limited IMPRESSION: No gallstones identified. Borderline common bile duct for patient age measuring up to 5 mm. Correlation biliary function enzymes needed.
[2023-08-01 11:06] VITALS: BP 134/85; PULSE 73; RESP 20; TEMP 36.3; O2SAT 100; BMI 27.3
[2023-08-01 11:20] LABS: MANUAL DIFF FLAG NO
[2023-08-01 11:32] LABS: Basophils Percent Auto 0.3 % (0-2); Eosinophils Absolute Auto 0.1 X10*3/uL (0.0-0.4); Eosinophils Percent Auto 1.1 % (0-4); Hematocrit 39.4 % (37.0-47.0); Hemoglobin 12.9 g/dl (12.0-16.0); Imm Gran Abs Auto 0.05 X10*3/uL (0.00-0.03); Imm Gran Pct Auto 0.4 % (0.0-0.4); Lymphocytes Absolute Auto 2.1 X10*3/uL (1.2-4.9); Lymphocytes Percent Auto 17.3 % (20-40); Mean Corpuscular HGB Conc 32.7 g/dl (31.0-35.0); Mean Corpuscular Hemoglobin 29.1 pg (27.0-33.0); Mean Corpuscular Volume 88.9 fL (80.0-98.0); Mean Platelet Volume 9.6 fL (9.4-12.3); Monocytes Absolute Auto 0.8 X10*3/uL (0.1-1.2); Monocytes Percent Auto 6.8 % (2-11); Neutrophils Absolute Auto 8.8 x10*3/uL (2.0-8.3); Neutrophils Percent Auto 74.1 % (45-73); Platelet Count 304 X10*3/uL (160-400); Red Blood Count 4.43 X10*6/uL (4.20-5.50); Red Cell Distribution Width 13.3 % (11.0-16.0); White Blood Count 11.8 X10*3/uL (4.8-10.8)
[2023-08-01 11:35] LABS: Alanine Aminotransferase 12 U/L (0-31); Albumin Level 4.2 g/dL (3.5-5.0); Alkaline Phosphatase 44 U/L (39-117); Anion Gap 13 (12-20); Aspartate Amino Transferase 14 U/L (5-31); Bilirubin Direct < 0.2 mg/dL (0.0-0.5); Bilirubin Total 0.2 mg/dL (0.0-1.0); Blood Urea Nitrogen 10 mg/dL (9-16); Calcium 9.5 mg/dL (8.4-10.2); Carbon Dioxide 25 mmol/L (22-29); Chloride 108 mmol/L (96-108); Creatinine Clr Calc Pharmacy 89.3; Estimated Glomerular Filt Rate > 60; Glucose Random 97 mg/dL (60-115); Potassium 4.1 mmol/L (3.3-5.1); Sodium 142 mmol/L (135-145); Total Protein 7.2 g/dL (6.5-8.0)
[2023-08-01] MEDS: Ondansetron ODT 4 MG TAB.RAPDIS TRANSLINGU (15:01)
--- NOTE | 2023-08-01 18:40 | ED_ITS ---
HPI - Abdominal Pain General Chief Complaint: Abdominal Pain Stated Complaint: Abd pain Time Seen by Provider: 08/01/23 19:13 Source: patient Mode of arrival: ambulatory Limitations: no limitations History of Present Illness HPI narrative: Patient with no significant past GI complaints non alcoholic comes in for pain in epigastric area since she woke up in the morning associated with nausea had 5 loose bowels pain localized to the upper abdomen with the heart burning sensation going to the mid chest no fever no chills no urinary complaints patient also complaining of headache which is same in the past when she gets migraine headache Related Data Previous Rx's Medication Instructions Recorded medroxyprogesterone 10 mg tablet 10 mg PO DAILY 10 days #30 tabs 04/04/22 (Provera) ibuprofen 600 mg tablet 600 mg PO Q8H PRN pain #20 tabs 03/19/23 [id number]-rfolughxleizv-aahlcfsl 1 tab PO Q6H PRN headache #30 tabs 08/01/23 50 mg-325 mg-40 mg tablet pantoprazole 40 mg tablet,delayed 40 mg PO DAILY #30 tabs 08/01/23 release (Protonix) sucralfate 1 gram tablet 1 g PO BID #60 tabs 08/01/23 Allergies Allergy/AdvReac Type Severity Reaction Status Date / Time No Known Allergies Allergy Verified 02/21/22 10:29 [No Known Allergies*] Review of Systems Review of Systems Yes all other systems are reviewed and are negative PMFSH Past Medical History Medical History Anemia Surgical History H/O LEEP Tubal ligation status Family History Family History Father Lung cancer Social History Social History Alcohol intake: never Patient Tobacco Use Status: Current everyday Tobacco user Tobacco use type: Cigarette Cigarettes Per Day: 3.0 Smoked in Last 30 Days: No Second Hand Smoke Exposure: No Advance Directives: No Advance Directives Information Provided: No Physical Exam ED Vital Signs: Vital Signs - 24 hr 08/01/23 11:06 Temperature 97.4 F Pulse Rate 73 Respiratory Rate 20 Blood Pressure 134/85 Pulse Oximetry 100 Oxygen Delivery Method Room Air BMI result Body Mass Index 27.3 Appearance: Alert. Oriented X3. No acute distress. ENT: Pharynx normal. Oral Mucosa moist Neck: Normal inspection. Neck supple. CVS: Normal heart rate and rhythm. Pulses normal. Respiratory: No respiratory distress. Equal air entry bilateral, no wheezing/rales/rhonchi Abdomen: Soft tender in epigastric area no rebound tenderness or guarding. Bowel sounds are present, no mass palpable, no CVA tenderness Skin: Skin warm and dry. Normal skin color. Normal skin turgor. Extremities: No lower extremity edema. No calf tenderness Neuro: Oriented X 3. No motor deficit. Course Course Course Narrative: This is a rapid medical exam. Deferred additional HPI, ROS, PE to primary provider. 43 yo female here with complaint of upper abdominal pain, nausea since waking. Will obtain labs, UA, abdominal US VSS Medical Decision Making Medical Decision Making [facility] Narrative: Patient with new onset epigastric pain labs are normal with normal LFTs ultrasound showed slightly borderline CBD dilatation of 5 mm without any stone lipase is normal patient pain is likely from gastritis will give a trial of Maalox lidocaine viscous and Prilosec Patient felt better after Maalox and Prilosec will discharge patient home likely the cause of pain is gastritis Differential Diagnosis Differential Diagnoses: The differential diagnosis associated with the presentation includes Gastritis/pancreatitis/CBD stone/cholecystitis Lab Data [facility] Lab Attestation statement: I reviewed the patient's lab results. 08/01/23 11:16 08/01/23 11:16 Labs: Lab Results 08/01/23 08/01/23 Range/Units 11:16 21:07 WBC 11.8 H (4.8-10.8) X10*3/uL RBC 4.43 (4.20-5.50) X10*6/uL Hgb 12.9 (12.0-16.0) g/dl Hct 39.4 (37.0-47.0) % MCV 88.9 (80.0-98.0) fL MCH 29.1 (27.0-33.0) pg MCHC 32.7 (31.0-35.0) g/dl RDW 13.3 (11.0-16.0) % Plt Count 304 (160-400) X10*3/uL MPV 9.6 (9.4-12.3) fL Immature Gran % (Auto) 0.4 (0.0-0.4) % Neut % (Auto) 74.1 H (45-73) % Lymph % (Auto) 17.3 L (20-40) % Cassia % (Auto) 6.8 (2-11) % Eos % (Auto) 1.1 (0-4) % Baso % (Auto) 0.3 (0-2) % Lymph # (Auto) 2.1 (1.2-4.9) X10*3/uL [place] # (Auto) 0.8 (0.1-1.2) X10*3/uL Eos # (Auto) 0.1 (0.0-0.4) X10*3/uL Baso # (Auto) 0.0 (0.0-0.2) X10*3/uL Abs Immat Gran (auto) 0.05 H (0.00-0.03) X10*3/uL Absolute Neuts (auto) 8.8 H (2.0-8.3) x10*3/uL Absolute Nucleated RBC 0.000 (0.0-0.012) X10*3/uL Nucleated RBC % (auto) 0.0 (0.0-0.2) /100WBC Sodium 142 (135-145) mmol/L Potassium 4.1 (3.3-5.1) mmol/L Chloride 108 (96-108) mmol/L Carbon Dioxide 25 (22-29) mmol/L Anion Gap 13 (12-20) BUN 10 (9-16) mg/dL Creatinine 0.69 (0.5-1.4) mg/dL Estim Creat Clear Calc 89.3 Estimated GFR > 60 Random Glucose 97 (60-115) mg/dL Calcium 9.5 (8.4-10.2) mg/dL Total Bilirubin 0.2 (0.0-1.0) mg/dL Direct Bilirubin < 0.2 (0.0-0.5) mg/dL AST 14 (5-31) U/L ALT 12 (0-31) U/L Alkaline Phosphatase 44 (39-117) U/L Total Protein 7.2 (6.5-8.0) g/dL Albumin 4.2 (3.5-5.0) g/dL Lipase 30 (8-78) U/L Urine Color Yellow Urine Appearance Clear Urine pH 6.0 (5.0-9.0) Ur Specific [place] 1.020 (1.005-1.025) Urine Protein Negative (Neg-Trace) mg/dL Urine Glucose (UA) Negative (Negative) mg/dL Urine Ketones Negative (Negative) mg/dL Urine Blood Small (1+) H (Negative) Urine Nitrite Negative (Negative) Ur Leukocyte Esterase Negative (Negative) Radiology Impression Discussion of test interpretation with radiology: I have reviewed the radiologist's reading. Medications Administered Discontinued Medications Generic Name Dose Route Start Last Admin Trade Name Freq PRN Reason Stop Dose Admin Acetaminophen/Butalbital/Caffeine 1 tab 08/01/23 21:30 08/01/23 21:41 Butalb/Acetamin/Caff 50/325/40 Tablet PO 08/01/23 21:31 1 tab ONCE ONE Administration Al Hydroxide/Mg Hydroxide 30 ml 08/01/23 19:54 08/01/23 21:05 Magnesium Hydrox/Alum Hydrox 30 Ml Oral.Susp PO 08/01/23 19:55 30 ml ONCE ONE Administration Lidocaine HCl 15 ml 08/01/23 19:54 08/01/23 21:05 Lidocaine Hcl Viscous 2 % 15 Ml Solution MUCOUS MEM 08/01/23 19:55 15 ml ONCE ONE Administration Omeprazole 40 mg 08/01/23 19:54 08/01/23 21:04 Omeprazole 40 Mg Capsule.Dr PO 08/01/23 19:55 40 mg ONCE ONE Administration Ondansetron HCl 4 mg 08/01/23 14:58 08/01/23 15:01 Ondansetron Odt 4 Mg Tab.Rapdis TRANSLINGU 08/01/23 14:59 4 mg ONCE ONE Administration Discharge Plan Discharge Clinical Impression: Acute gastritis, Migraine headache Patient Disposition: Home, Self-Care Instructions: Gastritis (ED), Migraine Headache (ED) Additional Instructions: Avoid fried food Take medication as prescribed Medication for migraine headache as needed Follow up with PCP if not better Evite la comida frita [place] los medicamentos seg?n lo prescrito Medicamentos para la migra?a seg?n sea necesario Seguir con PCP si no es mejor Prescriptions: New pantoprazole [Protonix] 40 mg tablet,delayed release (DR/EC) 40 mg PO DAILY Qty: 30 0RF sucralfate 1 gram tablet 1 g PO BID Qty: 60 0RF [id number]-cshkwfegzphnl-cgwa 50-325-40 mg tablet 1 tab PO Q6H PRN (Reason: headache) Qty: 30 0RF No Action medroxyprogesterone [Provera] 10 mg tablet 10 mg PO DAILY 10 Days Qty: 30 0RF Rx Instructions: start Provera 1 tablet daily from day 15-24 cyclically every months, day 1 being 1st day of menses ibuprofen 600 mg tablet 600 mg PO Q8H PRN (Reason: pain) Qty: 20 0RF Print Language: Bulgarian
[2023-08-01 19:51] LABS: Lipase 30 U/L (8-78)
[2023-08-01] MEDS: Omeprazole 40 MG CAPSULE.DR PO (21:04)
[2023-08-01] MEDS: Magnesium Hydrox/Alum Hydrox 30 ML ORAL.SUSP PO (21:05)
[2023-08-01] MEDS: Lidocaine HCl Viscous 2 % 15 ML SOLUTION MUCOUS MEM (21:05)
[2023-08-01 21:22] LABS: Appearance Urine Clear; Color Urine Yellow; Glucose Urine UA Negative (Negative); Leukocyte Esterase Urine Negative (Negative); Nitrite Urine Negative (Negative); UMIC TRIGGER UACC YES; Urine Blood Small (1+) (Negative); Urine Ketones Negative (Negative); Urine Protein Negative (Neg-Trace)
[2023-08-01] MEDS: Butalb/Acetamin/Caff 50/325/40 TABLET 1 TAB PO (21:41)
[2023-08-01 21:56] LABS: Bacteria Urine 1+ (None Seen); Hyaline Casts Urine 0-2 /LPF (0-2); WBC Urine 0-5 /HPF (0-5)
== END 2023-08-01 22:15 | disposition home or self-care (01) ==
PROVIDERS: Nurse Practitioner Family; Emergency Provider Internal Medicine; PCP Internal Medicine
DX: K29.00 Acute gastritis without bleeding (principal); G43.909 Migraine, unspecified, not intractable, without status migrainosus; D64.9 Anemia, unspecified; F17.210 Nicotine dependence, cigarettes, uncomplicated; Z79.899 Other long term (current) drug therapy
CPT/HCPCS: 36415; 76705; 80048; 80076; 81001; 83690; 85025; 99284

== ENCOUNTER 2024-01-09 15:41 | Emergency (ER) | payer MEDICAID, SELFPAY ==
--- NOTE | ~2024-01-09 | XR_ITS ---
EXAMINATION: XR chest 2V CLINICAL INFORMATION: Cough COMPARISON: No prior chest x-ray available in our system for comparison at the time of this dictation. TECHNIQUE: XR chest 2V, 2 Views Lungs and Cat: Both lungs are clear. Pleura: Normal. Costophrenic angles are sharp. No pneumothorax. Heart: The heart is normal in size. Mediastinum: The mediastinum is within normal limits.. Bones: Skeletal structures included are normal for patient's age. XR/XR chest 2V IMPRESSION: No radiographic evidence of acute cardiopulmonary disease.
--- NOTE | ~2024-01-09 | CT_ITS ---
EXAMINATION: CT head/brain wo IV con CLINICAL INFORMATION: Reason for Exam Vertigo COMPARISON: None. TECHNIQUE: Contiguous axial imaging was performed from the skull base to vertex without intravenous contrast. Sagittal and coronal reformatted images were obtained. This CT examination was performed using dose optimization techniques as appropriate, variously including the following: * Automated exposure control * Adjustment of mA and/or kV according to patient size (this includes techniques or standardized protocols for targeted exams where dose is matched to indication/reason for exam; i.e. extremities or head) Use of iterative reconstruction technique DLP: 584 mGy-cm FINDINGS: No acute osseous or soft tissue abnormality. The mastoid air cells and visualized portions of the paranasal sinuses are well aerated. There is no evidence of acute intracranial hemorrhage or territorial infarction. No abnormal mass effect or midline shift is seen. Abreu to white matter differentiation is well preserved. No extra-axial fluid collections are identified. No hydrocephalus. No significant volume loss. There is no abnormal attenuation within the brain parenchyma. CT/CT head/brain wo IV con IMPRESSION: No acute intracranial abnormality including hemorrhage, mass effect, hydrocephalus, or acute territorial edematous infarction.
[2024-01-09 16:38] VITALS: BP 123/88; PULSE 77; RESP 18; TEMP 36.2; O2SAT 99; BMI 28.5
--- NOTE | 2024-01-09 16:39 | ED_ITS ---
HPI - Dizziness General Chief Complaint: Dizziness Stated Complaint: headache/dizziness Time Seen by Provider: 01/09/24 21:58 Related Data Previous Rx's Medication Instructions Recorded medroxyprogesterone 10 mg tablet 10 mg PO DAILY 10 days #30 tabs 04/04/22 (Provera) ibuprofen 600 mg tablet 600 mg PO Q8H PRN pain #20 tabs 03/19/23 uxjwsuvhhy-jcqczkqcnvqoq-aidpvtyp 1 tab PO Q6H PRN headache #30 tabs 08/01/23 50 mg-325 mg-40 mg tablet pantoprazole 40 mg tablet,delayed 40 mg PO DAILY #30 tabs 08/01/23 release (Protonix) sucralfate 1 gram tablet 1 g PO BID #60 tabs 08/01/23 meclizine 25 mg tablet 25 mg PO QID PRN vertigo #20 tabs 01/10/24 Allergies Allergy/AdvReac Type Severity Reaction Status Date / Time No Known Allergies Allergy Verified 01/09/24 16:41 [No Known Allergies*] PMFSH Past Medical History Medical History Anemia Surgical History H/O LEEP Tubal ligation status Family History Family History Father Lung cancer Social History Social History Alcohol intake: never Patient Tobacco Use Status: Current everyday Tobacco user Tobacco use type: Cigarette Cigarettes Per Day: 3.0 Second Hand Smoke Exposure: No Advance Directives: No Advance Directives Information Provided: No Physical Exam 2 Vital Signs: Vital Signs: Last Vital Signs Temp 97.8 F 01/09/24 23:28 Pulse 85 01/09/24 23:28 Resp 18 01/09/24 23:28 BP 132/83 01/09/24 23:28 Pulse Ox 97 01/09/24 23:28 O2 Del Method Room Air 01/09/24 23:28 BMI result Body Mass Index 28.5 Course Course Course Narrative: This is a Rapid Medical Examination (RME) in triage, full HPI, ROS, assessment and plan per primary provider in the Main ED. 43 yo Thai speaking female presents to the ER for evaluation of dizziness and nausea. Medications Administered Discontinued Medications Generic Name Dose Route Start Last Admin Trade Name Irvingq PRN Reason Stop Dose Admin Meclizine HCl 25 mg 01/09/24 23:21 01/09/24 23:26 Meclizine Hcl 25 Mg Tablet PO 01/09/24 23:22 25 mg ONCE ONE Administration Medical Decision Making Lab Data 01/09/24 17:15 01/09/24 17:15 Labs: Lab Results 01/09/24 01/09/24 Range/Units 17:15 23:23 WBC 7.8 (4.8-10.8) X10*3/uL RBC 4.56 (4.20-5.50) X10*6/uL Hgb 13.3 (12.0-16.0) g/dl Hct 40.7 (37.0-47.0) % MCV 89.3 (80.0-98.0) fL MCH 29.2 (27.0-33.0) pg MCHC 32.7 (31.0-35.0) g/dl RDW 13.1 (11.0-16.0) % Plt Count 265 (160-400) X10*3/uL MPV 10.1 (9.4-12.3) fL Immature Gran % (Auto) 0.3 (0.0-0.4) % Neut % (Auto) 56.4 (45-73) % Lymph % (Auto) 32.8 (20-40) % [place] % (Auto) 8.5 (2-11) % Eos % (Auto) 1.4 (0-4) % Baso % (Auto) 0.6 (0-2) % Lymph # (Auto) 2.6 (1.2-4.9) X10*3/uL [place] # (Auto) 0.7 (0.1-1.2) X10*3/uL Eos # (Auto) 0.1 (0.0-0.4) X10*3/uL Baso # (Auto) 0.1 (0.0-0.2) X10*3/uL Abs Immat Gran (auto) 0.02 (0.00-0.03) X10*3/uL Absolute Neuts (auto) 4.4 (2.0-8.3) x10*3/uL Absolute Nucleated RBC 0.000 (0.0-0.012) X10*3/uL Nucleated RBC % (auto) 0.0 (0.0-0.2) /100WBC Sodium 142 (135-145) mmol/L Potassium 3.8 (3.3-5.1) mmol/L Chloride 109 H (96-108) mmol/L Carbon Dioxide 27 (22-29) mmol/L Anion Gap 10 L (12-20) BUN 9 (9-16) mg/dL Creatinine 0.75 (0.5-1.4) mg/dL Estim Creat Clear Calc 83.7 Estimated GFR > 60 Random Glucose 99 (60-115) mg/dL Calcium 10.0 (8.4-10.2) mg/dL Total Bilirubin 0.3 (0.0-1.0) mg/dL Direct Bilirubin 0.1 (0.0-0.5) mg/dL AST 21 (5-31) U/L ALT 20 (0-31) U/L Alkaline Phosphatase 51 (39-117) U/L Total Protein 8.2 H (6.5-8.0) g/dL Albumin 4.5 (3.5-5.0) g/dL Lipase 46 (8-78) U/L Urine Color Yellow Urine Appearance Clear Urine pH 8.0 (5.0-9.0) Ur Specific [place] 1.015 (1.005-1.025) Urine Protein Negative (Neg-Trace) mg/dL Urine Glucose (UA) Negative (Negative) mg/dL Urine Ketones Negative (Negative) mg/dL Urine Blood Negative (Negative) Urine Nitrite Negative (Negative) Ur Leukocyte Esterase Trace H (Negative) Urine RBC 0-2 (0-2) /HPF Urine WBC 0-5 (0-5) /HPF Ur Squamous Epith Cells 3-5 (0-2) /HPF Urine Bacteria Trace (None Seen) Hyaline Casts 0-2 (0-2) /LPF Urine Test NEGATIVE (NEGATIVE) Influenza Type A (PCR) NEGATIVE (Negative) Influenza Type B (PCR) NEGATIVE (Negative) RSV RNA Qual (PCR) NEGATIVE (Negative) SARS-CoV-2 RNA (RT-PCR) NEGATIVE (Negative) Discharge Plan Discharge Clinical Impression: Vertigo Patient Disposition: Home, Self-Care Instructions: Vertigo (ED) Prescriptions: New meclizine 25 mg tablet 25 mg PO QID PRN (Reason: vertigo) Qty: 20 0RF No Action medroxyprogesterone [Provera] 10 mg tablet 10 mg PO DAILY 10 Days Qty: 30 0RF Rx Instructions: start Provera 1 tablet daily from day 15-24 cyclically every months, day 1 being 1st day of menses ibuprofen 600 mg tablet 600 mg PO Q8H PRN (Reason: pain) Qty: 20 0RF pantoprazole [Protonix] 40 mg tablet,delayed release (DR/EC) 40 mg PO DAILY Qty: 30 0RF sucralfate 1 gram tablet 1 g PO BID Qty: 60 0RF nfldnzbvos-kebrvqcgfixii-pxuq 50-325-40 mg tablet 1 tab PO Q6H PRN (Reason: headache) Qty: 30 0RF Referrals: Karo Waller MD [Physician] - 01/12/24
[2024-01-09 17:31] LABS: MANUAL DIFF FLAG NO
[2024-01-09 17:40] LABS: Basophils Absolute Auto 0.1 X10*3/uL (0.0-0.2); Basophils Percent Auto 0.6 % (0-2); Eosinophils Absolute Auto 0.1 X10*3/uL (0.0-0.4); Eosinophils Percent Auto 1.4 % (0-4); Hematocrit 40.7 % (37.0-47.0); Hemoglobin 13.3 g/dl (12.0-16.0); Imm Gran Abs Auto 0.02 X10*3/uL (0.00-0.03); Imm Gran Pct Auto 0.3 % (0.0-0.4); Lymphocytes Absolute Auto 2.6 X10*3/uL (1.2-4.9); Lymphocytes Percent Auto 32.8 % (20-40); Mean Corpuscular HGB Conc 32.7 g/dl (31.0-35.0); Mean Corpuscular Hemoglobin 29.2 pg (27.0-33.0); Mean Corpuscular Volume 89.3 fL (80.0-98.0); Mean Platelet Volume 10.1 fL (9.4-12.3); Monocytes Absolute Auto 0.7 X10*3/uL (0.1-1.2); Monocytes Percent Auto 8.5 % (2-11); Neutrophils Absolute Auto 4.4 x10*3/uL (2.0-8.3); Neutrophils Percent Auto 56.4 % (45-73); Platelet Count 265 X10*3/uL (160-400); Red Blood Count 4.56 X10*6/uL (4.20-5.50); Red Cell Distribution Width 13.1 % (11.0-16.0); White Blood Count 7.8 X10*3/uL (4.8-10.8)
[2024-01-09 17:46] LABS: Alanine Aminotransferase 20 U/L (0-31); Albumin Level 4.5 g/dL (3.5-5.0); Alkaline Phosphatase 51 U/L (39-117); Anion Gap 10 (12-20); Aspartate Amino Transferase 21 U/L (5-31); Bilirubin Direct 0.1 mg/dL (0.0-0.5); Bilirubin Total 0.3 mg/dL (0.0-1.0); Blood Urea Nitrogen 9 mg/dL (9-16); Carbon Dioxide 27 mmol/L (22-29); Chloride 109 mmol/L (96-108); Creatinine Clr Calc Pharmacy 83.7; Estimated Glomerular Filt Rate > 60; Glucose Random 99 mg/dL (60-115); Lipase 46 U/L (8-78); Potassium 3.8 mmol/L (3.3-5.1); Sodium 142 mmol/L (135-145); Total Protein 8.2 g/dL (6.5-8.0)
[2024-01-09 18:08] LABS: Influenza A PCR NEGATIVE (Negative); Influenza B PCR NEGATIVE (Negative); Resp Syncy Virus RNA Qual PCR NEGATIVE (Negative); SARS COV2 PCR INHOUSE NEGATIVE (Negative)
--- NOTE | 2024-01-09 23:24 | ED_ITS ---
HPI - Dizziness General Chief Complaint: Dizziness Stated Complaint: headache/dizziness Time Seen by Provider: 01/09/24 21:58 History of Present Illness HPI Narrative: Patient is a 43-year-old female presents today with having dizziness that is spinning like ongoing for the last 2 days. Patient denies any fever chills. Does not think she is . Although she missed her menstruation. Patient denies any vaginal bleeding. Denies any rectal bleeding. Denies any chest pain. Denies any vomiting. No focal weakness. The symptoms seems to be made worse with movement. Specifically tilting her head downward. No diaphoresis. Symptoms seems to have improved with staying still. Related Data Previous Rx's Medication Instructions Recorded medroxyprogesterone 10 mg tablet 10 mg PO DAILY 10 days #30 tabs 04/04/22 (Provera) ibuprofen 600 mg tablet 600 mg PO Q8H PRN pain #20 tabs 03/19/23 fijqlitnef-rdvqkormrzxnw-lswcqwwu 1 tab PO Q6H PRN headache #30 tabs 08/01/23 50 mg-325 mg-40 mg tablet pantoprazole 40 mg tablet,delayed 40 mg PO DAILY #30 tabs 08/01/23 release (Protonix) sucralfate 1 gram tablet 1 g PO BID #60 tabs 08/01/23 meclizine 25 mg tablet 25 mg PO QID PRN vertigo #20 tabs 01/10/24 Allergies Allergy/AdvReac Type Severity Reaction Status Date / Time No Known Allergies Allergy Verified 01/09/24 16:41 [No Known Allergies*] Review of Systems 2 Review of Systems: Positive dizziness spinning sensation Yes all other systems are reviewed and are negative PMFSH Past Medical History Attestation statement: The following information was validated with the patient. Medical History Anemia Surgical History H/O LEEP Tubal ligation status Family History Family History Father Lung cancer Social History Social History Alcohol intake: never Patient Tobacco Use Status: Current everyday Tobacco user Tobacco use type: Cigarette Cigarettes Per Day: 3.0 Second Hand Smoke Exposure: No Advance Directives: No Advance Directives Information Provided: No Physical Exam 2 Vital Signs: Vital Signs: Last Vital Signs Temp 97.8 F 01/09/24 23:28 Pulse 85 01/09/24 23:28 Resp 18 01/09/24 23:28 BP 132/83 01/09/24 23:28 Pulse Ox 97 01/09/24 23:28 O2 Del Method Room Air 01/09/24 23:28 BMI result Body Mass Index 28.5 Appearance: Alert. Oriented X3. No acute distress. Eyes: Pupils equal, round and reactive to light. ENT: Pharynx normal. Neck: Normal inspection. Neck supple. No lymph nodes noted. No crepitus CVS: Normal heart rate and rhythm. Pulses normal. Normal S1 and S2 Respiratory: No respiratory distress. Breath sounds normal. No Wheezing. No rales Abdomen: Soft and nontender. No rigidity. No distention. good BS x4 Skin: Skin warm and dry. Normal skin color. Normal skin turgor. Extremities: No lower extremity edema. Neurovascular intact to all extremities. No Lacerations. No Rash Neuro: Oriented X 3. No motor deficit. No sensory deficit. Moving all extermities. No slurred speech. Cranial nerves 2-12 intact. Rapid alternating movement intact. Medications Administered Discontinued Medications Generic Name Dose Route Start Last Admin Trade Name Freq PRN Reason Stop Dose Admin Meclizine HCl 25 mg 01/09/24 23:21 01/09/24 23:26 Meclizine Hcl 25 Mg Tablet PO 01/09/24 23:22 25 mg ONCE ONE Administration Medical Decision Making Medical Decision Making MDM Narrative: Patient is 43 years old presents today with having dizziness spinning sensation worse with movement of her head. Been going for 2 days. test was negative sugar was normal no evidence for hyperglycemia electrolytes unremarkable patient also complaining of a headache. CT scan of the head showed no acute evidence of bleeding. No large mass. Patient given a dose of Antivert with good results. Will ask patient to hydrate. Antivert for spinning. Moves slowly. More likely patient's symptoms peripheral as patient is neurologically intact. In stable condition. Will have patient follow-up with neurology on an outpatient basis. Differential Diagnosis Differential Diagnoses: The differential diagnosis associated with the presentation includes Intracranial bleed, mass, central vertigo, dehydration, UTI, Admission/Observation Consideration of admission/observation: Escalation of care including admission/observation considered Symptom improving no need for admission Lab Data MDM Lab Attestation statement: I reviewed the patient's lab results. 01/09/24 17:15 01/09/24 17:15 Labs: Lab Results 01/09/24 01/09/24 Range/Units 17:15 23:23 WBC 7.8 (4.8-10.8) X10*3/uL RBC 4.56 (4.20-5.50) X10*6/uL Hgb 13.3 (12.0-16.0) g/dl Hct 40.7 (37.0-47.0) % MCV 89.3 (80.0-98.0) fL MCH 29.2 (27.0-33.0) pg MCHC 32.7 (31.0-35.0) g/dl RDW 13.1 (11.0-16.0) % Plt Count 265 (160-400) X10*3/uL MPV 10.1 (9.4-12.3) fL Immature Gran % (Auto) 0.3 (0.0-0.4) % Neut % (Auto) 56.4 (45-73) % Lymph % (Auto) 32.8 (20-40) % [place] % (Auto) 8.5 (2-11) % Eos % (Auto) 1.4 (0-4) % Baso % (Auto) 0.6 (0-2) % Lymph # (Auto) 2.6 (1.2-4.9) X10*3/uL [place] # (Auto) 0.7 (0.1-1.2) X10*3/uL Eos # (Auto) 0.1 (0.0-0.4) X10*3/uL Baso # (Auto) 0.1 (0.0-0.2) X10*3/uL Abs Immat Gran (auto) 0.02 (0.00-0.03) X10*3/uL Absolute Neuts (auto) 4.4 (2.0-8.3) x10*3/uL Absolute Nucleated RBC 0.000 (0.0-0.012) X10*3/uL Nucleated RBC % (auto) 0.0 (0.0-0.2) /100WBC Sodium 142 (135-145) mmol/L Potassium 3.8 (3.3-5.1) mmol/L Chloride 109 H (96-108) mmol/L Carbon Dioxide 27 (22-29) mmol/L Anion Gap 10 L (12-20) BUN 9 (9-16) mg/dL Creatinine 0.75 (0.5-1.4) mg/dL Estim Creat Clear Calc 83.7 Estimated GFR > 60 Random Glucose 99 (60-115) mg/dL Calcium 10.0 (8.4-10.2) mg/dL Total Bilirubin 0.3 (0.0-1.0) mg/dL Direct Bilirubin 0.1 (0.0-0.5) mg/dL AST 21 (5-31) U/L ALT 20 (0-31) U/L Alkaline Phosphatase 51 (39-117) U/L Total Protein 8.2 H (6.5-8.0) g/dL Albumin 4.5 (3.5-5.0) g/dL Lipase 46 (8-78) U/L Urine Color Yellow Urine Appearance Clear Urine pH 8.0 (5.0-9.0) Ur Specific [place] 1.015 (1.005-1.025) Urine Protein Negative (Neg-Trace) mg/dL Urine Glucose (UA) Negative (Negative) mg/dL Urine Ketones Negative (Negative) mg/dL Urine Blood Negative (Negative) Urine Nitrite Negative (Negative) Ur Leukocyte Esterase Trace H (Negative) Urine RBC 0-2 (0-2) /HPF Urine WBC 0-5 (0-5) /HPF Ur Squamous Epith Cells 3-5 (0-2) /HPF Urine Bacteria Trace (None Seen) Hyaline Casts 0-2 (0-2) /LPF Urine Test NEGATIVE (NEGATIVE) Influenza Type A (PCR) NEGATIVE (Negative) Influenza Type B (PCR) NEGATIVE (Negative) RSV RNA Qual (PCR) NEGATIVE (Negative) SARS-CoV-2 RNA (RT-PCR) NEGATIVE (Negative) Independent Interpretation I performed an independent interpretation of an: Plain X-Ray (Chest x-ray showed no focal infiltrate) and CT Scan (CT scan of the head was negative for any acute evidence of bleeding) Radiology Impression Discussion of test interpretation with radiology: I have reviewed the radiologist's reading. Independent Historian Clinical information obtained from an independent historian. History obtained from or confirmed by: Other (Discussed the finding with patient's family. Additional history was obtained) Discharge Plan Discharge Clinical Impression: Vertigo Patient Disposition: Home, Self-Care Instructions: Vertigo (ED) Prescriptions: New meclizine 25 mg tablet 25 mg PO QID PRN (Reason: vertigo) Qty: 20 0RF No Action medroxyprogesterone [Provera] 10 mg tablet 10 mg PO DAILY 10 Days Qty: 30 0RF Rx Instructions: start Provera 1 tablet daily from day 15-24 cyclically every months, day 1 being 1st day of menses ibuprofen 600 mg tablet 600 mg PO Q8H PRN (Reason: pain) Qty: 20 0RF pantoprazole [Protonix] 40 mg tablet,delayed release (DR/EC) 40 mg PO DAILY Qty: 30 0RF sucralfate 1 gram tablet 1 g PO BID Qty: 60 0RF navfliuxiq-tfjwfjxytxyam-yuuc 50-325-40 mg tablet 1 tab PO Q6H PRN (Reason: headache) Qty: 30 0RF Referrals: Karo Waller MD [Physician] - 01/12/24
[2024-01-09] MEDS: Meclizine HCl 25 MG TABLET PO (23:26)
[2024-01-09 23:28] VITALS: BP 132/83; PULSE 85; RESP 18; TEMP 36.6; O2SAT 97
[2024-01-09 23:31] LABS: Appearance Urine Clear; Color Urine Yellow; Glucose Urine UA Negative (Negative); Leukocyte Esterase Urine Trace (Negative); Nitrite Urine Negative (Negative); Specific Gravity - Urine 1.015 (1.005-1.025); UMIC TRIGGER UACC YES; Urine Blood Negative (Negative); Urine Ketones Negative (Negative); Urine Protein Negative (Neg-Trace)
[2024-01-09 23:33] LABS: UPreg QC Valid YES; Urine Pregnancy NEGATIVE (NEGATIVE)
[2024-01-09 23:49] LABS: Bacteria Urine Trace (None Seen); Hyaline Casts Urine 0-2 /LPF (0-2); RBC Urine 0-2 /HPF (0-2); WBC Urine 0-5 /HPF (0-5)
[2024-01-10 01:39] VITALS: BP 132/83; PULSE 85; RESP 18; TEMP 36.6; O2SAT 97
== END 2024-01-10 01:40 | disposition home or self-care (01) ==
PROVIDERS: Emergency Provider Emergency Medicine Emergency Medical Services; PCP Internal Medicine
DX: R42 Dizziness and giddiness (principal); R11.0 Nausea
CPT/HCPCS: 0241U; 70450; 71046; 80048; 80076; 81001; 81025; 83690; 85025; 99283; 99284

== ENCOUNTER → 2024-01-17 11:45 | Outpatient (BNV) | payer MEDICAID, SELFPAY | PROVIDERS: PCP Internal Medicine; Visit Provider Radiology Diagnostic Radiology | DX: Z12.31 Encounter for screening mammogram for malignant neoplasm of breast (principal) | CPT/HCPCS: 77063; 77067 ==

== ENCOUNTER 2024-01-17 11:55 | Outpatient (REF) | payer MEDICAID, SELFPAY ==
--- NOTE | ~2024-01-17 | MM_ITS ---
EXAMINATION: MM SCREENING DIGITAL BREAST TOMOSYNTHESIS, BILATERAL CLINICAL INFORMATION: Screening. Asymptomatic. COMPARISON: Mammography: This is a baseline mammogram. TECHNIQUE: Digital breast tomosynthesis is performed in both the craniocaudal and mediolateral oblique views along with computer-aided detection (CAD). Synthesized 2D images are generated from the tomosynthesis. FINDINGS: The breasts are heterogeneously dense, which may obscure small masses (ACR BI-RADS breast composition Category c). There are no significant masses, abnormal calcifications, or other abnormalities. MM/MM tomosynthesis screening BI IMPRESSION: No mammographic evidence of malignancy. ASSESSMENT: BI-RADS BI-RADS 1 - Negative RECOMMENDATION: Routine annual mammography screening. 1 year F/U This examination should not preclude the clinical evaluation of a suspicious palpable abnormality. This patient's information was entered into a reminder system with a target due date for their next mammogram.
== END 2024-01-17 11:56 | disposition home or self-care (01) ==
LOC: HO.MAMMO 11:55
PROVIDERS: PCP Internal Medicine; Visit Provider Internal Medicine
DX: Z12.31 Encounter for screening mammogram for malignant neoplasm of breast (principal)
CPT/HCPCS: 77063; 77067

== ENCOUNTER 2024-02-21 10:34 | Outpatient (AMB) | payer MEDICAID, SELFPAY ==
[2024-02-21 10:36] VITALS: BP 126/80; BMI 28.4
--- NOTE | 2024-02-21 10:36 | A.OFFVIS_ITS ---
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 No complaints. The patient stopped taking cyclic Provera few months ago and since then has been having irregular menstrual cycles Last Pap/HPV was negative in 05/27 Last Mammogram was BI-RADS 1 in 01/30 [facility] Medical History (Updated 02/21/24 @ 10:54 by Kalin Portillo MD) Anemia Surgical History (Updated 02/21/24 @ 10:43 by Kalin Portillo MD) H/O LEEP Tubal ligation status Family History Father Lung cancer Social History Alcohol intake: never Patient Tobacco Use Status: Current everyday Tobacco user Tobacco use type: Cigarette Cigarettes Per Day: 3.0 Second Hand Smoke Exposure: No Female Reproductive History Menstrual Age of Menarche: 13 Date of last menstrual period: 01/20/24 Total pregnancies: 3 Full term: 3 Number of Living Children: 3 Date of last pap smear: 05/22/19 Date of Mammogram: 01/17/24 Review of Systems Const All systems reviewed & are unremarkable except as noted in HPI and below Card Reports as per HPI Resp Reports as per HPI GI Reports as per HPI and Reports no additional complaints Reports as per HPI Physical Exam Vital Signs: BMI result Body Mass Index 28.4 Const General: cooperative, healthy appearing and comfortable Chest Chest palpation & inspection: normal inspection of the chest and normal palpation of entire chest wall Breast/axilla inspection: normal inspection of the breasts and normal inspection of the axillae Breast/axilla palpation: normal palpation of the breasts, normal palpation of the axillae and no axillary lymphadenopathy Resp Effort & Inspection: normal respiratory effort Auscultation: clear to auscultation bilaterally Percussion: percussion normal Cardio Palpation: normal PMI Rate: regular rate Rhythm: regular rhythm Heart sounds: no murmurs and no rubs Peripheral pulses: Peripheral pulses 2+ throughout GI Inspection: Yes normal to inspection Palpation (GI): Soft to palpation, nontender, no guarding, not rigid and No hepatosplenomegaly present Percussion: Yes normal to percussion Auscultation: normal bowel sounds Rectal Exam - Female: deferred General: Yes bladder normal to palpation External Female Exam: No lesion Speculum Exam - Vagina: normal appearance of the vagina, normal palpation, normal vaginal discharge and not erythematous Speculum Exam - Cervix: normal appearance of the cervix and normal palpation Bimanual exam- vagina & uterus: normal bimanual exam, normal palpation, uterine size normal, bladder normal to palpation, consistency normal and normal palpation Bimanual Exam- Adnexa, other: normal adnexae, no masses and no tenderness Assessment & Plan Assessment & Plan (1) Well woman exam: Comment: History of ELVIRA 3 status post LEEP in 2010 Code(s): Z01.419 - Encounter for gynecological examination (general) (routine) without abnormal findings Category: Medical Plan: Cotesting done. Commended patient co testing Q 3 years till 2035 25 years from ELVIRA 3 in 2010 Instructions given the patient to schedule next screening Mammogram in 01/31 Counseled the patient about the recommended dietary allowance of 1000 mg of Calcium & 600 IU of vitamin D. The patient was instructed to perform monthly self-breast exams and to schedule an annual exam in a year; All questions answered and the patient verbalized understanding. Instructed the patient to schedule annual exam in a year (2) Abnormal uterine bleeding (AUB): Comment: History of endometrial hyperplasia with no atypia in 07/29 Code(s): N93.9 - Abnormal uterine and vaginal bleeding, unspecified Category: Medical Plan: Co testing done, CBC, TSH, prolactin, HCG, and pelvic ultrasound ordered. Discussed with the patient the different causes of abnormal bleeding including thyroid disorders, uterine and ovarian pathology, endometrial hyperplasia, carcinoma and other potential causes. Discussed with the patient the work up including CBC (to r/o anemia), TSH, prolactin, pelvic Ultrasound, endometrial biopsy to r/o endometrial pathology. All questions answered and the patient verbalized understanding. Instructed the patient to schedule an appointment for an endometrial biopsy in 2 weeks. Orders: Orders Prolactin Today N93.9 - Abnormal uterine and vaginal bleeding, unspecified TSH reflex Free T4 Today N93.9 - Abnormal uterine and vaginal bleeding, unspecified HCG Quantitative Today N93.9 - Abnormal uterine and vaginal bleeding, unspecified Complete Blood Count no Diff Today N93.9 - Abnormal uterine and vaginal bleeding, unspecified US pelvic and transvaginal Today N93.9 - Abnormal uterine and vaginal bleeding, unspecified Coding Level of Care Code Est Pt Prev Care 40-64y(82244) Diagnoses Well woman exam Z01.419 Abnormal uterine bleeding (AUB) N93.9
== END 2024-02-21 10:58 | disposition home or self-care (01) ==
PROVIDERS: PCP Internal Medicine; Referring Provider Internal Medicine; Visit Provider Obstetrics & Gynecology
DX: Z01.419 Encounter for gynecological examination (general) (routine) without abnormal findings (principal); N93.9 Abnormal uterine and vaginal bleeding, unspecified
CPT/HCPCS: 99396

== ENCOUNTER 2024-02-21 10:34 | Outpatient (REF) | payer MEDICAID, SELFPAY ==
[2024-02-27 12:49] LABS: HPV mRNA E6/E7 rflx Not Detected (Not Detected)
== END 2024-02-21 10:35 | disposition home or self-care (01) ==
LOC: HO.LNP 10:34
PROVIDERS: PCP Internal Medicine; Visit Provider Obstetrics & Gynecology
DX: Z01.419 Encounter for gynecological examination (general) (routine) without abnormal findings (principal); N93.9 Abnormal uterine and vaginal bleeding, unspecified
CPT/HCPCS: 36415; 84146; 84443; 84702; 85027; 87624; 88142; 99396

== ENCOUNTER 2024-02-21 11:05 | Outpatient (REF) | payer MEDICAID, SELFPAY ==
[2024-02-21 12:33] LABS: Hematocrit 40.6 % (37.0-47.0); Hemoglobin 13.2 g/dl (12.0-16.0); Mean Corpuscular HGB Conc 32.5 g/dl (31.0-35.0); Mean Corpuscular Hemoglobin 29.3 pg (27.0-33.0); Mean Corpuscular Volume 90.2 fL (80.0-98.0); Mean Platelet Volume 10.1 fL (9.4-12.3); Platelet Count 369 X10*3/uL (160-400); Red Cell Distribution Width 13.3 % (11.0-16.0)
[2024-02-21 13:15] LABS: HCG Quantitative < 2 mIU/mL; TSH reflex Free T4 1.72 uIU/mL (0.32-4.0)
[2024-02-22 08:49] LABS: Prolactin 12.5 ng/mL
== END 2024-02-21 11:06 | disposition home or self-care (01) ==
LOC: HO.LAB 11:05
PROVIDERS: PCP Internal Medicine; Visit Provider Obstetrics & Gynecology
DX: N93.9 Abnormal uterine and vaginal bleeding, unspecified (principal)
CPT/HCPCS: 36415; 84146; 84443; 84702; 85027

== ENCOUNTER 2024-03-06 10:57 | Outpatient (REF) | payer MEDICAID, SELFPAY ==
--- NOTE | ~2024-03-06 | US_ITS ---
EXAMINATION: US PELVIS CLINICAL INFORMATION: Abnormal uterine bleeding. Patient declined transvaginal ultrasound. section. COMPARISON: 06/25/2021. TECHNIQUE: Ultrasound of the pelvis is performed using both transabdominal and transvaginal transducers along with Doppler. Transvaginal imaging is performed due to inadequate visualization transabdominally. FINDINGS: Uterus is anteverted and measures 9.6 x 3.7 x 6.2 cm. Endometrial thickness is 6 mm. A 0.9 x 0.7 x 0.8 cm myometrial cyst abuts the endometrium. No significant free fluid. Right ovary measures 2.4 x 1.8 x 1.2 cm, volume 1.8 mL. Left ovary measures 2.2 x 1.0 x 1.7 cm, volume 1.96 mL. Bilateral ovaries are unremarkable. US/US pelvic and transvaginal IMPRESSION: 1. Endometrial thickness is 6 mm. 2. A 0.9 cm myometrial cyst abuts the endometrium. 3. Unremarkable bilateral ovaries. 4. No significant free fluid.
== END 2024-03-06 10:58 | disposition home or self-care (01) ==
LOC: HO.US 10:57
PROVIDERS: PCP Internal Medicine; Visit Provider Obstetrics & Gynecology
DX: N93.9 Abnormal uterine and vaginal bleeding, unspecified (principal)
CPT/HCPCS: 76830; 76856

== ENCOUNTER 2024-03-20 11:49 | Outpatient (AMB) | payer MEDICAID, SELFPAY ==
--- NOTE | 2024-03-20 11:53 | A.OFFVIS_ITS ---
Vital Signs 3 03/20/24 11:54 Height 5 ft Weight 145 lb 15.136 oz BMI 28.5 BP 101/67 Blood Pressure Location Lt brachial Position Sitting Pulse 88 Intake Visit Reasons: epigastric pain Intake Note: New patient in office today for evaluation and management of epigastric pain. CC: Patient c/o epigastric pain that she states makes her feel a heat from her body, she gets nauseas, and diarrhea. Onset of symptoms around July last year. She was seen in July last year at the ED and told that her gallbladder was inflamed. Organizational Consultant Required: Yes Accompanied by: Self / Same As Patient Allergies No Known Allergies [No Known Allergies*] Allergy (Verified 03/20/24 11:58) HPI HPI epigastric pain: Details: 43-year-old female here for initial evaluation of epigastric pain. She is referred by [facility]. PMX Smoker Umbilical hernia Chronic posttraumatic headache Constipation Menorrhagia Rotator cuff tendinitis Anxiety Multiple arthralgias Impaired cognition Liver cyst * SURGICAL HISTORY LEEP procedure Tubal ligation ALLERGIES: NKDA [employer] LABS: Laboratory Tests 01/09/24 02/21/24 17:15 11:29 WBC 9.0 Hgb 13.2 Hct 40.6 Plt Count 369 D Estimated GFR > 60 Total Bilirubin 0.3 Direct Bilirubin 0.1 AST 21 ALT 20 Alkaline Phosphatase 51 Lipase 46 TSH 1.72 ULTRASOUND OF THE ABDOMEN 08/01/23 FINDINGS: PANCREAS: The visualized portions of the pancreas are unremarkable. LIVER: Visualized portions of the liver are normal in appearance. There is no intrahepatic biliary duct dilatation seen. GALLBLADDER: Normal. The gallbladder is physiologically distended without evidence of stones, sludge, polyps, wall thickening or pericholecystic fluid. COMMON BILE DUCT: The common bile duct measures 5 mm. RIGHT KIDNEY: Normal. No hydronephrosis. No renal calculi or focal parenchymal lesions. The kidney measures cm in maximum dimension. FREE FLUID: None. US/US abdomen limited IMPRESSION: No gallstones identified. Borderline common bile duct for patient age measuring up to 5 mm. Correlation biliary function enzymes needed. TODAY'S VISIT Upper [place] #Ayala Pinto This started in July of 2023 with pain and nausea at night also diarrhea. She presented to the ER and she was told that the mouth of the GB was swollen. Her pain is always in the epigastric are every night. The pain is colicky in nature. It is localized and does not move. The pain is somewhat relieved with sitting upright with her knees to her chest. The pain is 8-9/10. IT is not every night but about once a week. When she has the pain her upper abd gets very hard. She can not ID any food triggers or other triggers. She was given protonix and carafate by the ER but this did not help much. She was on NSAIDS when she was getting a lot of MONTANEZ's and she was taking OTC Excedrin. This had a tylenol/caffeine base. She struggles with CIC at times not moving her bowels for a week at a time. She REALLY dislikes taking medicine she likes natural options. She has been trying teas to help digestion that has helped. Her father had severe GERD and what sounds like a nissin fund, he has to follow a very strict diet w/o wei spices or flavors. He also had PUD. We will get EGD and HIDA and HP breath test. Trial of bentlyl. Return office visit in 6 weeks. [facility] Medical History Well woman exam COVID-19 Anemia Surgical History H/O LEEP Tubal ligation status Family History Father Lung cancer Social History Alcohol intake: never Patient Tobacco Use Status: Current everyday Tobacco user Tobacco use type: Cigarette Cigarettes Per Day: 3.0 Second Hand Smoke Exposure: No Female Reproductive History Menstrual Age of Menarche: 13 Review of Systems Const Denies fatigue, Denies fever(s), Denies night sweats, Denies poor appetite and Denies weight loss ENT Reports Normal hearing present, Denies dental pain, Denies dysphagia, Denies hearing loss, Denies mouth pain, Denies odynophagia, Denies throat swelling, Denies tongue swelling and Reports other (Dentition adequate) Card Reports no additional complaints Resp Reports no additional complaints GI Details: Reports abdominal pain, Denies melena, Denies bloating, Denies hematochezia, Reports constipation, Denies GI cramping, Denies dysphagia, Denies excessive flatus, Denies early satiety, Denies heartburn, Denies diarrhea, Denies nausea, Denies odynophagia, Denies vomiting and Denies hematemesis Skin/Breast Denies pruritus, Denies lesions, Denies rash and Denies jaundice Neuro Reports Normal hearing present and Denies Abnormal speech present Endo Denies fatigue Aller/Immun Denies throat swelling and Denies tongue swelling Physical Exam Vital Signs: Last Vital Signs Pulse 88 03/20/24 11:54 BP 101/67 03/20/24 11:54 BMI result Body Mass Index 28.5 Const General: cooperative, no acute distress, well developed and well groomed Nutritional Appearance: well nourished and overweight Orientation/consciousness: oriented to person, oriented to place and oriented to time Limitations: language barrier HEENT Head: Yes normocephalic and Yes atraumatic Eyes General: appearance normal, both eyes and all related structures Pupils: Equal, round and reactive pupils present Neck Neck: Yes normal visual inspection and Yes no lymphadenopathy Thyroid: Thyroid normal Resp Effort & Inspection: normal respiratory effort and able to speak in complete sentences Auscultation: clear to auscultation bilaterally Cardio Rate: regular rate Rhythm: regular rhythm Heart sounds: Normal, physiologic split S2 sound present Peripheral pulses: radial pulses present and posterior tibial pulses present GI Inspection: No distended, No Abdominal panniculus present, Yes scar and Yes striae Palpation (GI): Soft to palpation, Tenderness to palpation present (GI) in the LLQ, no guarding, not rigid and No hepatosplenomegaly present Percussion: Yes normal to percussion Auscultation: normal bowel sounds Rectal Exam - Female: deferred Abdomen image: 2 1. appy scar Skin General skin exam: no rashes or lesions noted, turgor normal, skin not dry, no jaundice, No spider nevi and no striae Rashes: no rashes Nails: normal Neuro General: oriented to person, oriented to place and oriented to time Cranial nerves: Yes Equal, round and reactive pupils present and Yes Normal hearing present Speech: No Abnormal speech present Extrem General: Yes normal to inspection, No clubbing, No cyanosis and No edema Psych Appearance: grossly normal and well kempt Mental Status: mental status grossly normal Speech and movement: Normal speech and movement present Affect: normal affect Attitude: cooperative Thought process: Normal thought process present and not confabulating Thought content: Normal thought content present Insight: Limited insight present (Psych) Judgement: Limited judgement present (Psych) Results Reviewed Results Reviewed: Laboratory Tests 01/09/24 02/21/24 17:15 11:29 WBC 9.0 Hgb 13.2 Hct 40.6 Plt Count 369 D Estimated GFR > 60 Total Bilirubin 0.3 Direct Bilirubin 0.1 AST 21 ALT 20 Alkaline Phosphatase 51 Lipase 46 TSH 1.72 ULTRASOUND OF THE ABDOMEN 08/01/23 FINDINGS: PANCREAS: The visualized portions of the pancreas are unremarkable. LIVER: Visualized portions of the liver are normal in appearance. There is no intrahepatic biliary duct dilatation seen. GALLBLADDER: Normal. The gallbladder is physiologically distended without evidence of stones, sludge, polyps, wall thickening or pericholecystic fluid. COMMON BILE DUCT: The common bile duct measures 5 mm. RIGHT KIDNEY: Normal. No hydronephrosis. No renal calculi or focal parenchymal lesions. The kidney measures cm in maximum dimension. FREE FLUID: None. US/US abdomen limited IMPRESSION: No gallstones identified. Borderline common bile duct for patient age measuring up to 5 mm. Correlation biliary function enzymes needed. Assessment & Plan Assessment & Plan (1) Epigastric pain: Code(s): R10.13 - Epigastric pain Category: Medical (2) Chronic idiopathic constipation: Code(s): K59.04 - Chronic idiopathic constipation Category: Medical Plan [place] #Tachjean-paul Blair This started in July of 2023 with pain and nausea at night also diarrhea. She presented to the ER and she was told that the mouth of the GB was swollen. Her pain is always in the epigastric are every night. The pain is colicky in nature. It is localized and does not move. The pain is somewhat relieved with sitting upright with her knees to her chest. The pain is 8-9/10. IT is not every night but about once a week. When she has the pain her upper abd gets very hard. She can not ID any food triggers or other triggers. She was given protonix and carafate by the ER but this did not help much. She was on NSAIDS when she was getting a lot of MONTANEZ's and she was taking OTC Excedrin. This had a tylenol/caffeine base. She struggles with CIC at times not moving her bowels for a week at a time. She REALLY dislikes taking medicine she likes natural options. She has been trying teas to help digestion that has helped. Her father had severe GERD and what sounds like a nissin fund, he has to follow a very strict diet w/o wei spices or flavors. He also had PUD. We will get EGD and HIDA and HP breath test. Trial of bentlyl. Return office visit in 6 weeks. Orders: Orders 2 EGD with [facility] - GI Use Only Today K59.04 - Chronic idiopathic constipation, R10.13 - Epigastric pain NM hepatobiliary w pharm Today K59.04 - Chronic idiopathic constipation, R10.13 - Epigastric pain H Pylori Breath Test Today R10.13 - Epigastric pain Medications: New 2 dicyclomine 20 mg PO QID 90 tabs 1RF 30 days Coding Level of Care Code New Pt Level 3 (86591) Diagnoses Epigastric pain R10.13 Chronic idiopathic constipation K59.04
[2024-03-20 11:54] VITALS: BP 101/67; PULSE 88; BMI 28.5
== END 2024-03-20 13:16 | disposition home or self-care (01) ==
PROVIDERS: PCP Internal Medicine; Visit Provider Nurse Practitioner
DX: R10.13 Epigastric pain (principal); K59.04 Chronic idiopathic constipation
CPT/HCPCS: 99203

== ENCOUNTER → 2024-03-20 11:49 | Outpatient (BNVA) | payer MEDICAID, SELFPAY | PROVIDERS: PCP Internal Medicine; Visit Provider Nurse Practitioner | DX: K59.04 Chronic idiopathic constipation (principal); R10.13 Epigastric pain | CPT/HCPCS: 99212 ==

== ENCOUNTER 2024-03-20 15:14 | Outpatient (REF) | payer MEDICAID, SELFPAY ==
[2024-03-27 10:00] LABS: H Pylori Breath Test Negative (Negative)
== END 2024-03-20 15:15 | disposition home or self-care (01) ==
LOC: HO.LNP 15:14
PROVIDERS: Visit Provider Nurse Practitioner
DX: R10.13 Epigastric pain (principal); K59.04 Chronic idiopathic constipation
CPT/HCPCS: 83013; 99212

== ENCOUNTER 2024-04-12 00:42 | Emergency (ER) | payer MEDICAID, SELFPAY ==
[2024-04-12 00:45] VITALS: BP 128/78; PULSE 85; RESP 16; TEMP 37.2; O2SAT 96; BMI 19.4
[2024-04-12 02:19] LABS: MANUAL DIFF FLAG NO
[2024-04-12 02:21] LABS: Basophils Absolute Auto 0.1 X10*3/uL (0.0-0.2); Basophils Percent Auto 0.8 % (0-2); Eosinophils Absolute Auto 0.3 X10*3/uL (0.0-0.4); Eosinophils Percent Auto 2.4 % (0-4); Hematocrit 36.4 % (37.0-47.0); Hemoglobin 12.3 g/dl (12.0-16.0); Imm Gran Abs Auto 0.03 X10*3/uL (0.00-0.03); Imm Gran Pct Auto 0.3 % (0.0-0.4); Lymphocytes Absolute Auto 2.6 X10*3/uL (1.2-4.9); Lymphocytes Percent Auto 25.8 % (20-40); Mean Corpuscular HGB Conc 33.8 g/dl (31.0-35.0); Mean Corpuscular Hemoglobin 29.7 pg (27.0-33.0); Mean Corpuscular Volume 87.9 fL (80.0-98.0); Mean Platelet Volume 9.7 fL (9.4-12.3); Monocytes Absolute Auto 0.8 X10*3/uL (0.1-1.2); Monocytes Percent Auto 8.2 % (2-11); Neutrophils Absolute Auto 6.4 x10*3/uL (2.0-8.3); Neutrophils Percent Auto 62.5 % (45-73); Platelet Count 314 X10*3/uL (160-400); Red Blood Count 4.14 X10*6/uL (4.20-5.50); Red Cell Distribution Width 13.1 % (11.0-16.0); White Blood Count 10.2 X10*3/uL (4.8-10.8)
[2024-04-12 02:22] LABS: Appearance Urine Turbid; Color Urine Yellow; Glucose Urine UA Negative (Negative); Leukocyte Esterase Urine Negative (Negative); Nitrite Urine Negative (Negative); PH 7.5 (5.0-9.0); UMIC TRIGGER UACC YES; Urine Blood Trace (Negative); Urine Ketones Negative (Negative); Urine Protein Negative (Neg-Trace)
[2024-04-12 02:26] LABS: Bacteria Urine Trace (None Seen); Hyaline Casts Urine 0-2 /LPF (0-2); UPreg QC Valid YES; Urine Pregnancy NEGATIVE (NEGATIVE); WBC Urine 0-5 /HPF (0-5)
[2024-04-12 02:34] LABS: Anion Gap 12 (12-20); Blood Urea Nitrogen 11 mg/dL (9-16); Calcium 9.5 mg/dL (8.4-10.2); Carbon Dioxide 24 mmol/L (22-29); Chloride 109 mmol/L (96-108); Creatinine Clr Calc Pharmacy 68.3; Estimated Glomerular Filt Rate > 60; Glucose Random 99 mg/dL (60-115); IDNOW Serial# 08D9AD1C; Potassium 4.1 mmol/L (3.3-5.1); Sodium 141 mmol/L (135-145); Strep A Nucleic Acid Negative (Negative)
--- NOTE | 2024-04-12 02:45 | ED_ITS ---
HPI - General Adult General Chief complaint: General Medical Stated complaint: n/v Time Seen by Provider: 04/12/24 02:45 Source: patient Mode of arrival: ambulatory Limitations: no limitations History of Present Illness ED Provider: zac ALAS narrative: Patient is smoker been coughing for last 1 week mostly dry cough no fever no chills does have a sore throat also also patient is under increased stress and grief as her niece few days ago unable to sleep no history of asthma Related Data Previous Rx's ?Medication ?Instructions ?Recorded dicyclomine 20 mg tablet 20 mg PO QID 30 days #90 tabs 03/20/24 benzonatate 200 mg capsule 200 mg PO TID PRN cough #30 caps 04/12/24 cefuroxime axetil 500 mg tablet 500 mg PO BID 7 days #14 tabs 04/12/24 lorazepam 1 mg tablet (Ativan) 1 mg PO BEDTIME PRN anxiety/sleep 04/12/24 #10 tabs Allergies Allergy/AdvReac Type Severity Reaction Status Date / Time No Known Allergies Allergy Verified 04/12/24 00:52 [No Known Allergies*] Review of Systems 2 Review of Systems: Yes all other systems are reviewed and are negative PMFSH Past Medical History Medical History Well woman exam COVID-19 Anemia Surgical History H/O LEEP Tubal ligation status Family History Family History Father Lung cancer Social History Social History Alcohol intake: never Patient Tobacco Use Status: Current everyday Tobacco user Tobacco use type: Cigarette Cigarettes Per Day: 3.0 Second Hand Smoke Exposure: No Advance Directives: No Advance Directives Information Provided: Yes Do you have a plan to hurt others: No Plan Physical Exam ED Vital Signs: Vital Signs - 24 hr 04/12/24 00:45 04/12/24 03:18 Temperature 98.9 F 98.9 F Pulse Rate 85 85 Respiratory Rate 16 16 Blood Pressure 128/78 128/78 Pulse Oximetry 96 96 Oxygen Delivery Method Room Air Room Air BMI result Body Mass Index 19.4 Appearance: Alert. Oriented X3. No acute distress. ENT: Pharynx normal. Oral Mucosa moist Neck: Normal inspection. Neck supple. CVS: Normal heart rate and rhythm. Pulses normal. Respiratory: No respiratory distress. Equal air entry bilateral, no wheezing/rales/rhonchi frequent cough Abdomen: Soft and nontender. Bowel sounds are present, no mass palpable, Skin: Skin warm and dry. Normal skin color. Normal skin turgor. Extremities: No lower extremity edema. No calf tenderness Neuro: Oriented X 3. No motor deficit. No sensory deficit.No cerebellar signs , cranial nerves II-XII intact Medications Administered Discontinued Medications Generic Name Dose Route Start Last Admin Trade Name Freq PRN Reason Stop Dose Admin Benzonatate 200 mg 04/12/24 03:09 04/12/24 03:15 Benzonatate 100 Mg Capsule PO 04/12/24 03:10 200 mg ONCE ONE Administration Cefuroxime Axetil 500 mg 04/12/24 03:09 04/12/24 03:15 Cefuroxime Axetil 500 Mg Tablet PO 04/12/24 03:10 500 mg ONCE ONE Administration Lorazepam 1 mg 04/12/24 03:09 04/12/24 03:15 Lorazepam 1 Mg Tablet PO 04/12/24 03:10 1 mg ONCE ONE Administration Medical Decision Making Medical Decision Making [facility] Narrative: Patient with bronchitis workup negative will prescribe Ceftin and Tessalon Differential Diagnosis Differential Diagnoses: The differential diagnosis associated with the presentation includes Acute bronchitis/pneumonia/viral Lab Data [facility] Lab Attestation statement: I reviewed the patient's lab results. 04/12/24 02:14 04/12/24 02:14 Labs: Lab Results 04/12/24 Range/Units 02:14 WBC 10.2 (4.8-10.8) X10*3/uL RBC 4.14 L (4.20-5.50) X10*6/uL Hgb 12.3 (12.0-16.0) g/dl Hct 36.4 L (37.0-47.0) % MCV 87.9 (80.0-98.0) fL MCH 29.7 (27.0-33.0) pg MCHC 33.8 (31.0-35.0) g/dl RDW 13.1 (11.0-16.0) % Plt Count 314 (160-400) X10*3/uL MPV 9.7 (9.4-12.3) fL Immature Gran % (Auto) 0.3 (0.0-0.4) % Neut % (Auto) 62.5 (45-73) % Lymph % (Auto) 25.8 (20-40) % [place] % (Auto) 8.2 (2-11) % Eos % (Auto) 2.4 (0-4) % Baso % (Auto) 0.8 (0-2) % Lymph # (Auto) 2.6 (1.2-4.9) X10*3/uL [place] # (Auto) 0.8 (0.1-1.2) X10*3/uL Eos # (Auto) 0.3 (0.0-0.4) X10*3/uL Baso # (Auto) 0.1 (0.0-0.2) X10*3/uL Abs Immat Gran (auto) 0.03 (0.00-0.03) X10*3/uL Absolute Neuts (auto) 6.4 (2.0-8.3) x10*3/uL Absolute Nucleated RBC 0.000 (0.0-0.012) X10*3/uL Nucleated RBC % (auto) 0.0 (0.0-0.2) /100WBC Sodium 141 (135-145) mmol/L Potassium 4.1 (3.3-5.1) mmol/L Chloride 109 H (96-108) mmol/L Carbon Dioxide 24 (22-29) mmol/L Anion Gap 12 (12-20) BUN 11 (9-16) mg/dL Creatinine 0.77 (0.5-1.4) mg/dL Estim Creat Clear Calc 68.3 Estimated GFR > 60 Random Glucose 99 (60-115) mg/dL Calcium 9.5 (8.4-10.2) mg/dL Urine Color Yellow Urine Appearance Turbid Urine pH 7.5 (5.0-9.0) Ur Specific [place] 1.020 (1.005-1.025) Urine Protein Negative (Neg-Trace) mg/dL Urine Glucose (UA) Negative (Negative) mg/dL Urine Ketones Negative (Negative) mg/dL Urine Blood Trace H (Negative) Urine Nitrite Negative (Negative) Ur Leukocyte Esterase Negative (Negative) Urine RBC 11-20 H (0-2) /HPF Urine WBC 0-5 (0-5) /HPF Ur Squamous Epith Cells 6-10 (0-2) /HPF Urine Bacteria Trace (None Seen) Hyaline Casts 0-2 (0-2) /LPF Urine Test NEGATIVE (NEGATIVE) Influenza Type A (PCR) NEGATIVE (Negative) Influenza Type B (PCR) NEGATIVE (Negative) RSV RNA Qual (PCR) NEGATIVE (Negative) SARS-CoV-2 RNA (RT-PCR) NEGATIVE (Negative) S. pyogenes GrpA LORIE Negative (Negative) Discharge Plan Discharge Clinical Impression: Acute bronchitis, Grief reaction Patient Disposition: Home, Self-Care Instructions: Grief and Loss (ED), Acute Bronchitis (ED) Additional Instructions: Take antibiotics and cough drops as prescribed Medication to relax and sleep Prescriptions: New benzonatate 200 mg capsule 200 mg PO TID PRN (Reason: cough) Qty: 30 0RF cefuroxime axetil 500 mg tablet 500 mg PO BID 7 Days Qty: 14 0RF lorazepam [Ativan] 1 mg tablet 1 mg PO BEDTIME PRN (Reason: anxiety/sleep) Qty: 10 0RF No Action dicyclomine 20 mg tablet 20 mg PO QID 30 Days Qty: 90 1RF Interventions: ED Discharge Assessment Last Done: 04/12/24 03:18 Print Language: Luxembourgish
[2024-04-12 03:01] LABS: Influenza A PCR NEGATIVE (Negative); Influenza B PCR NEGATIVE (Negative); Resp Syncy Virus RNA Qual PCR NEGATIVE (Negative); SARS COV2 PCR INHOUSE NEGATIVE (Negative)
[2024-04-12] MEDS: cefuroxime axetiL 500 MG TABLET PO (03:15)
[2024-04-12] MEDS: LORazepam 1 MG TABLET PO (03:15)
[2024-04-12] MEDS: Benzonatate 100 MG CAPSULE 200 MG PO (03:15)
[2024-04-12 03:18] VITALS: BP 128/78; PULSE 85; RESP 16; TEMP 37.2; O2SAT 96
== END 2024-04-12 03:25 | disposition home or self-care (01) ==
PROVIDERS: Emergency Provider Internal Medicine; PCP Internal Medicine
DX: J20.9 Acute bronchitis, unspecified (principal); F43.29 Adjustment disorder with other symptoms; Z03.818 Encounter for observation for suspected exposure to other biological agents ruled out; R05.9 Cough, unspecified; J02.9 Acute pharyngitis, unspecified; F17.210 Nicotine dependence, cigarettes, uncomplicated
CPT/HCPCS: 0241U; 36415; 80048; 81001; 81025; 85025; 87651; 99283

== ENCOUNTER 2024-06-04 17:25 | Outpatient (REF) | payer MEDICAID, SELFPAY ==
[2024-06-05 09:18] LABS: Bacterial Vaginosis PCR POSITIVE (Negative); Candida Group PCR DETECTED (Not Detect); Candida glab krusei PCR NOT DETECTED (Not Detect); Trichomonas vaginalis PCR NOT DETECTED (Not Detect)
[2024-06-05 09:39] LABS: CT PCR NOT DETECTED (Not Detect.); NG PCR NOT DETECTED (Not Detect.)
== END 2024-06-04 17:26 | disposition home or self-care (01) ==
LOC: HO.HHCLNP 17:25
PROVIDERS: Visit Provider Nurse Practitioner Family
DX: N89.8 Other specified noninflammatory disorders of vagina (principal)
CPT/HCPCS: 0352U; 87491; 87591

== ENCOUNTER → 2024-06-24 07:49 | Outpatient (REF) | payer MEDICAID, SELFPAY ==
--- NOTE | ~2024-06-24 | NM_ITS ---
EXAMINATION: BILIARY TRACT IMAGING STUDY WITH CCK CLINICAL INFORMATION: Epigastric pain.. COMPARISON: No previous biliary scan is available for comparison. Abdominal ultrasound dated 08/01/[address] of the abdomen and pelvis dated 09/03/2019 are available for comparison.. TECHNIQUE: Serial gamma scintillation camera images were obtained over the abdomen for a total observation period of 93 minutes following the intravenous administration of 5 mCi Tc-99m mebrofenin. FINDINGS: There is good concentration of activity in the liver by 5 minutes post injection. Biliary activity is visualized by 15 minutes. The gallbladder is well visualized by 25 minutes. Small bowel is well visualized by 75 minutes. At 63 minutes post radiopharmaceutical injection, a 30-minute infusion of 1.3 micrograms Sincalide was then begun and an additional 40 minutes of images were obtained. There is good emptying of the gallbladder. By the end of the study there is good clearance of activity from the liver and visualization of diffuse small bowel activity. The calculated gallbladder ejection fraction is 97% (normal gallbladder ejection fraction is greater than 35%). NM/NM hepatobiliary w pharm IMPRESSION: Visualization of the gallbladder is evidence of a patent cystic duct and strong evidence against the diagnosis of acute cholecystitis. The common bile duct is patent. Gallbladder emptying and ejection fraction are normal. Liver function appears normal. Electronically signed by: Chi Sims MD 06/27/2024 12:05 PM EDT
== END ==
LOC: HO.NUCMED 07:49
PROVIDERS: PCP Internal Medicine; Visit Provider Nurse Practitioner
DX: R10.13 Epigastric pain (principal); K59.04 Chronic idiopathic constipation
CPT/HCPCS: 78227; A9537; J2805

== ENCOUNTER 2024-07-15 10:50 | Outpatient (REF) | payer MEDICAID, SELFPAY | END 2024-07-15 10:51 | disposition home or self-care (01) | LOC: HO.LNP 10:50 | PROVIDERS: PCP Internal Medicine; Visit Provider Obstetrics & Gynecology | DX: N93.9 Abnormal uterine and vaginal bleeding, unspecified (principal) | CPT/HCPCS: 58100; 81025; 88305 ==

== ENCOUNTER 2024-07-15 10:50 | Outpatient (AMB) | payer MEDICAID, SELFPAY ==
[2024-07-15 10:55] VITALS: BMI 19.4
--- NOTE | 2024-07-15 10:55 | A.OFFVIS_ITS ---
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 [facility] Medical History Well woman exam COVID-19 Anemia Surgical History H/O LEEP Tubal ligation status Family History Father Lung cancer Social History Alcohol intake: never Patient Tobacco Use Status: Current everyday Tobacco user Tobacco use type: Cigarette Cigarettes Per Day: 3.0 Second Hand Smoke Exposure: No Patient : No Female Reproductive History Menstrual Age of Menarche: 13 Date of last menstrual period: 08/06/20 Total pregnancies: 2 Full term: 2 Review of Systems Card Reports as per HPI and Reports no additional complaints Resp Reports as per HPI and Reports no additional complaints GI Reports as per HPI and Reports no additional complaints Reports as per HPI Physical Exam Vital Signs: BMI result Body Mass Index 19.4 Office Procedures Endometrial Biopsy Details: The patient was counseled regarding the indication and benefits of endometrial sampling to rule out endometrial pathology including not limited to endometrial hyperplasia or endometrial cancer and others; The alternatives (Either do nothing vs. hysteroscopy D&C) & the risks were discussed with the patient including but not limited: pain, uterine perforation, bleeding, infection, possible injury to bladder, bowel, ureter, possible need for blood transfusion with all its possible risks. The patient verbalized understanding all questions answered and signed consent. Urine test done in the office was negative The patient was placed into the dorsal lithotomy position; a speculum was i nserted in the vagina. Using aseptic technique for the procedure, the cervix was cleansed with Betadine. The anterior lip of the cervix was grasped with a single tooth tenaculum. The uterus was sounded to 7 cm with a 4 mm Pipelle was used. Tissues samples were obtained and placed in formalin, in a patient labeled container and sent to the pathology department. At the end of the procedure, there was minimal bleeding noted The patient tolerated the procedure well and was discharged in good condition with the following instructions: Nothing in the vagina until the bleeding stops. No sex until the bleeding stops, to call if any of the following occurs: fever (>100.4), flu-like symptoms, abdominal pain, heavy bleeding, four smelling vaginal discharge. The patient was instructed to schedule a Follow up appointment in 2 weeks to discuss pathology results of the biopsy and treatment options. This note was generated with a voice recognition program. Some errors may have been overlooked during the review of this note. Sometimes these errors may affect the content or meaning of a given sentence. [id number] Biopsy Assessment & Plan Assessment & Plan (1) Abnormal uterine bleeding (AUB): Comment: History of endometrial hyperplasia with no atypia in 07/29 Code(s): N93.9 - Abnormal uterine and vaginal bleeding, unspecified Category: Medical Plan: EMB done, see procedure note Orders: Orders AMB HCG Urine Test Today Z32.02 - Encounter for test, result negative AMB Endometrial Biopsy Today N93.9 - Abnormal uterine and vaginal bleeding, unspecified Coding Level of Care Code Procedure Only Diagnoses Abnormal uterine bleeding (AUB) N93.9 CPT Codes Endometrial Biopsy - CPT: 91182-[id number] Biopsy ([id number])
== END 2024-07-15 11:35 | disposition home or self-care (01) ==
PROVIDERS: PCP Internal Medicine; Referring Provider Internal Medicine; Visit Provider Obstetrics & Gynecology
DX: N93.9 Abnormal uterine and vaginal bleeding, unspecified (principal); Z32.02 Encounter for pregnancy test, result negative
CPT/HCPCS: 58100

== ENCOUNTER 2024-07-29 15:44 | Outpatient (AMB) | payer MEDICAID, SELFPAY ==
--- NOTE | 2024-07-29 15:45 | MHC.OFFVIS ---
Intake Visit Reasons: TV for EMB Results Allergies No Known Allergies [No Known Allergies*] Allergy (Verified 07/15/24 11:01) HPI Comments Details: The patient schedule telehealth visit for follow-up to discuss the results of her abnormal uterine bleeding workup and options of treatment. The following workup was done.: H&H= 12.3/36.4 TSH, hCG, prolactin, GC and chlamydia were negative. Endometrial biopsy pathology showed the following: Fragments of weakly proliferative endometrium with stromal breakdown and foci of squamous metaplasia/morulae; negative for atypia, hyperplasia or malignancy (see comment). COMMENT: The foci of squamous metaplasia/morulae may be related to the breakdown changes seen in the background . Co testing was negative Mammogram was BI-RADS 1 Pelvic ultrasound showed the following: IMPRESSION: 1. Endometrial thickness is 6 mm. 2. A 0.9 cm myometrial cyst abuts the endometrium. 3. Unremarkable bilateral ovaries. 4. No significant free fluid. [facility] Medical History Well woman exam COVID-19 Anemia Surgical History H/O LEEP Tubal ligation status Family History Father Lung cancer Social History Alcohol intake: never Patient Tobacco Use Status: Current everyday Tobacco user Tobacco use type: Cigarette Cigarettes Per Day: 3.0 Second Hand Smoke Exposure: No Female Reproductive History Menstrual Age of Menarche: 13 Review of Systems Const All systems reviewed & are unremarkable except as noted in HPI and below Reports as per HPI and Reports no additional complaints GI Reports no additional complaints Reports no additional complaints Telehealth Telehealth Telehealth Platform: Telephone Location of provider rendering services: practice address Location of patient: address on file Patient Identification confirmed using: Name, : Yes Telehealth method: video Patient verbally consented to treatment: Yes Patient verbally consented to billing insurance company: Yes Patient informed of any privacy concerns related to visit: Yes Assessment & Plan Assessment & Plan (1) Abnormal uterine bleeding (AUB): Comment: History of endometrial hyperplasia with no atypia in 07/29 Squamous morules on recent EMB in 08/01 Code(s): N93.9 - Abnormal uterine and vaginal bleeding, unspecified Category: Medical Plan: Discussed with the patient the results of the workup including endometrial biopsy showing squamous morules on recent EMB possible associated with endometrial hyperplasia and/or malignancy and her history with endometrial hyperplasia with no atypia in 07/29 Options of treatment discussed with the patient include but not limited progestin p.o. versus levo norgestrel IUD. All pros and cons, risks and benefits of each were discussed with the patient including the fact that Mirena IUD is superior in terms of regression of pathological changes back t to normal and lowers the risk of endometrial hyperplasia and/or malignancy. The Patient decided to proceed with progestin treatment Will treat with cyclic Provera 10 mg p.o. q.d. day 15-24. The patient was instructed to call if abnormal menses recurs, will proceed with an endometrial biopsy then to r/o progression to endometrial hypeprlasia, and to schedule a 3 months appointment for a repeat endometrial biopsy. All questions answered, the patient verbalized understanding I spent a total of 20 minutes reviewing the chart, talking to the patient via video and documenting in the medical record. Medications: New medroxyprogesterone (Provera) start Provera 1 tablet daily from day 15-24 cyclically every months, day 1 being 1st day of menses 10 mg PO DAILY 10 days 30 tabs 0RF Coding Level of Care Code Tele Est Pt Level 1 (11766) Diagnoses Abnormal uterine bleeding (AUB) N93.9
== END 2024-07-29 15:59 | disposition home or self-care (01) ==
LOC: HO.HWS 15:44
PROVIDERS: PCP Internal Medicine; Visit Provider Obstetrics & Gynecology
DX: N93.9 Abnormal uterine and vaginal bleeding, unspecified (principal)
CPT/HCPCS: 99211

== ENCOUNTER → 2024-07-29 15:44 | Outpatient (BNVA) | payer MEDICAID, SELFPAY | PROVIDERS: PCP Internal Medicine; Visit Provider Obstetrics & Gynecology ==

== ENCOUNTER 2024-07-31 12:09 | Outpatient (REF) | payer MEDICAID, SELFPAY ==
[2024-07-31 13:29] LABS: MANUAL DIFF FLAG NO
[2024-07-31 13:38] LABS: Basophils Absolute Auto 0.1 X10*3/uL (0.0-0.2); Basophils Percent Auto 0.6 % (0-2); Eosinophils Absolute Auto 0.1 X10*3/uL (0.0-0.4); Eosinophils Percent Auto 1.1 % (0-4); Hematocrit 38.9 % (37.0-47.0); Hemoglobin 12.9 g/dl (12.0-16.0); Imm Gran Abs Auto 0.02 X10*3/uL (0.00-0.03); Imm Gran Pct Auto 0.3 % (0.0-0.4); Lymphocytes Absolute Auto 2.2 X10*3/uL (1.2-4.9); Lymphocytes Percent Auto 27.3 % (20-40); Mean Corpuscular HGB Conc 33.2 g/dl (31.0-35.0); Mean Corpuscular Hemoglobin 29.7 pg (27.0-33.0); Mean Corpuscular Volume 89.4 fL (80.0-98.0); Mean Platelet Volume 10.2 fL (9.4-12.3); Monocytes Absolute Auto 0.7 X10*3/uL (0.1-1.2); Monocytes Percent Auto 8.4 % (2-11); Neutrophils Percent Auto 62.3 % (45-73); Platelet Count 304 X10*3/uL (160-400); Red Blood Count 4.35 X10*6/uL (4.20-5.50)
[2024-07-31 13:45] LABS: Estimated Average Glucose 111 mg/dL; Hemoglobin A1c % 5.5 % (<6.0); Total Hemoglobin (HGBA1C) 3268.6818 umol/L
[2024-07-31 14:06] LABS: Ferritin 34 ng/mL (10-250); TSH reflex Free T4 1.43 uIU/mL (0.32-4.0); Vitamin D 25-OH Total 32.7 ng/mL (>30)
[2024-07-31 14:16] LABS: Folate 7.3 ng/mL (> or = 4.0); Vitamin B12 424 pg/mL (200-900)
== END 2024-07-31 12:10 | disposition home or self-care (01) ==
LOC: HO.HHCL 12:09
PROVIDERS: Visit Provider Internal Medicine
DX: R53.1 Weakness (principal); N93.9 Abnormal uterine and vaginal bleeding, unspecified
CPT/HCPCS: 36415; 82306; 82607; 82728; 82746; 83036; 84443; 85025

== ENCOUNTER 2025-02-05 15:42 | Emergency (ER) | payer MEDICAID, SELFPAY ==
--- NOTE | ~2025-02-05 | XR_ITS ---
CLINICAL HISTORY: sob 1 view chest x-ray Comparison: None Findings: The lungs are clear. Normal size heart. No acute fracture. IMPRESSION: 1. No acute findings. This document has been electronically signed by: Baylee Casey MD on 02/05/2025 18:41:24
[2025-02-05 16:02] VITALS: BP 122/75; PULSE 112; RESP 18; TEMP 37.9; O2SAT 99
--- NOTE | 2025-02-05 16:04 | ED_ITS ---
HPI - General Adult General Chief complaint: General Medical Stated complaint: Weakness, chills, no appetite Time Seen by Provider: 02/05/25 16:47 Related Data Previous Rx's ?Medication ?Instructions ?Recorded dicyclomine 20 mg tablet 20 mg PO QID 30 days #90 tabs 03/20/24 benzonatate 200 mg capsule 200 mg PO TID PRN cough #30 caps 04/12/24 cefuroxime axetil 500 mg tablet 500 mg PO BID 7 days #14 tabs 04/12/24 lorazepam 1 mg tablet (Ativan) 1 mg PO BEDTIME PRN anxiety/sleep 04/12/24 #10 tabs medroxyprogesterone 10 mg tablet 10 mg PO DAILY 10 days #30 tabs 11/04/24 (Provera) Allergies Allergy/AdvReac Type Severity Reaction Status Date / Time No Known Allergies Allergy Verified 02/05/25 16:05 [No Known Allergies*] PMFSH Past Medical History Medical History Well woman exam COVID-19 Anemia Surgical History H/O LEEP Tubal ligation status Family History Family History Father Lung cancer Social History Social History Alcohol intake: never Patient Tobacco Use Status: Current everyday Tobacco user Tobacco use type: Cigarette Cigarettes Per Day: 3.0 Second Hand Smoke Exposure: No Advance Directives: No Advance Directives Information Provided: Yes Physical Exam ED Vital Signs: Vital Signs - 24 hr 02/05/25 16:02 02/05/25 18:07 02/05/25 19:01 Temperature 100.2 F 99.1 F 99.4 F Pulse Rate 112 H 103 H 101 H Respiratory Rate 18 20 22 H Blood Pressure 122/75 107/68 107/72 Pulse Oximetry 99 98 96 Oxygen Delivery Method Room Air Room Air Room Air 02/05/25 20:14 Temperature 98.8 F Pulse Rate 92 Respiratory Rate 16 Blood Pressure 104/65 Pulse Oximetry 98 Oxygen Delivery Method Room Air BMI result Body Mass Index 30.0 Course Course Course Narrative: This is a Rapid Medical Examination (RME) performed by Nandini Rose PA-C in triage. Full HPI, ROS, assessment and treatment plan per primary provider in the Main ED. 02/05/25 1604 AMRIT Hernandez Hx: 44 yo female here for eval of headache, generalized weakness, decreased appetite, chills, nausea without vomiting since Monday. no urinary sx. no known sick contacts. PE/vitals: low grade temp, well appearing. Plan: labs, viral swabs Reevaluation(s) Reevaluation #1: This is a duplicate note. Please refer to Dr. Alas's completed note regarding patient's visit on 02/05/2025. Medications Administered Discontinued Medications Generic Name Dose Route Start Last Admin Trade Name Freq PRN Reason Stop Dose Admin Sodium Chloride 1,000 mls @ 999 mls/hr 02/05/25 18:00 02/05/25 20:14 Ns IV 02/05/25 19:00 Infused .Q1H1M BEATA Infusion Ketorolac Tromethamine 15 mg 02/05/25 17:57 02/05/25 18:10 Ketorolac Tromethamine 15 Mg/Ml Vial IVPUSH 02/05/25 17:58 15 mg ONCE ONE Administration Medical Decision Making Lab Data 02/05/25 16:20 02/05/25 16:20 Labs: Lab Results 02/05/25 02/05/25 Range/Units 16:20 18:26 WBC 4.7 L (4.8-10.8) X10*3/uL RBC 4.18 L (4.20-5.50) X10*6/uL Hgb 12.4 (12.0-16.0) g/dl Hct 36.2 L (37.0-47.0) % MCV 86.6 (80.0-98.0) fL MCH 29.7 (27.0-33.0) pg MCHC 34.3 (31.0-35.0) g/dl RDW 13.4 (11.0-16.0) % Plt Count 142 L D (160-400) X10*3/uL MPV 9.6 (9.4-12.3) fL Immature Gran % (Auto) 0.6 H (0.0-0.4) % Neut % (Auto) 75.8 H (45-73) % Lymph % (Auto) 14.1 L (20-40) % Glascock % (Auto) 8.6 (2-11) % Eos % (Auto) 0.0 (0-4) % Baso % (Auto) 0.9 (0-2) % Lymph # (Auto) 0.7 L (1.2-4.9) X10*3/uL Glascock # (Auto) 0.4 (0.1-1.2) X10*3/uL Eos # (Auto) 0.0 (0.0-0.4) X10*3/uL Baso # (Auto) 0.0 (0.0-0.2) X10*3/uL Abs Immat Gran (auto) 0.03 (0.00-0.03) X10*3/uL Absolute Neuts (auto) 3.5 (2.0-8.3) x10*3/uL Absolute Nucleated RBC 0.000 (0.0-0.012) X10*3/uL Nucleated RBC % (auto) 0.0 (0.0-0.2) /100WBC Sodium 136 (135-145) mmol/L Potassium 3.7 (3.3-5.1) mmol/L Chloride 102 (96-108) mmol/L Carbon Dioxide 25 (22-29) mmol/L Anion Gap 13 (12-20) BUN 10 (9-16) mg/dL Creatinine 0.76 (0.5-1.4) mg/dL Estim Creat Clear Calc 84.0 Estimated GFR > 60 Random Glucose 96 (60-115) mg/dL Calcium 9.0 (8.4-10.2) mg/dL Magnesium 1.6 (1.6-2.6) mg/dL Total Bilirubin 0.3 (0.0-1.0) mg/dL AST 56 H (5-31) U/L ALT 53 H (0-31) U/L Alkaline Phosphatase 58 (39-117) U/L Total Protein 6.9 (6.5-8.0) g/dL Albumin 3.9 (3.5-5.0) g/dL Lipase 49 (8-78) U/L Urine Color Yellow Urine Appearance Clear Urine pH 6.5 (5.0-9.0) Ur Specific Stevenson <= 1.005 (1.005-1.025) Urine Protein Negative (Neg-Trace) mg/dL Urine Glucose (UA) Negative (Negative) mg/dL Urine Ketones Negative (Negative) mg/dL Urine Blood Moderate (2+) H (Negative) Urine Nitrite Negative (Negative) Ur Leukocyte Esterase Negative (Negative) Urine RBC 11-20 H (0-2) /HPF Urine WBC 0-5 (0-5) /HPF Ur Squamous Epith Cells 3-5 (0-2) /HPF Urine Bacteria None Seen (None Seen) Hyaline Casts 0-2 (0-2) /LPF Urine Test NEGATIVE (NEGATIVE) Influenza Type A (PCR) NEGATIVE (Negative) Influenza Type B (PCR) NEGATIVE (Negative) RSV RNA Qual (PCR) NEGATIVE (Negative) SARS-CoV-2 RNA (RT-PCR) NEGATIVE (Negative) Discharge Plan Discharge Clinical Impression: Viral illness Patient Disposition: Home, Self-Care Instructions: Viral Syndrome (ED) Prescriptions: No Action medroxyprogesterone [Provera] 10 mg tablet 10 mg PO DAILY 10 Days Qty: 30 0RF Rx Instructions: start Provera 1 tablet daily from day 15-24 cyclically every months, day 1 being 1st day of menses benzonatate 200 mg capsule 200 mg PO TID PRN (Reason: cough) Qty: 30 0RF cefuroxime axetil 500 mg tablet 500 mg PO BID 7 Days Qty: 14 0RF lorazepam [Ativan] 1 mg tablet 1 mg PO BEDTIME PRN (Reason: anxiety/sleep) Qty: 10 0RF dicyclomine 20 mg tablet 20 mg PO QID 30 Days Qty: 90 1RF Referrals: Ana M Harrington MD [Primary Care Provider] - 02/07/25 Interventions: ED Discharge Assessment Last Done: 02/05/25 20:14 Print Language: Czech
[2025-02-05 16:25] LABS: MANUAL DIFF FLAG NO
[2025-02-05 16:31] LABS: Basophils Percent Auto 0.9 % (0-2); Hematocrit 36.2 % (37.0-47.0); Hemoglobin 12.4 g/dl (12.0-16.0); Imm Gran Abs Auto 0.03 X10*3/uL (0.00-0.03); Imm Gran Pct Auto 0.6 % (0.0-0.4); Lymphocytes Absolute Auto 0.7 X10*3/uL (1.2-4.9); Lymphocytes Percent Auto 14.1 % (20-40); Mean Corpuscular HGB Conc 34.3 g/dl (31.0-35.0); Mean Corpuscular Hemoglobin 29.7 pg (27.0-33.0); Mean Corpuscular Volume 86.6 fL (80.0-98.0); Mean Platelet Volume 9.6 fL (9.4-12.3); Monocytes Absolute Auto 0.4 X10*3/uL (0.1-1.2); Monocytes Percent Auto 8.6 % (2-11); Neutrophils Absolute Auto 3.5 x10*3/uL (2.0-8.3); Neutrophils Percent Auto 75.8 % (45-73); Platelet Count 142 X10*3/uL (160-400); Red Blood Count 4.18 X10*6/uL (4.20-5.50); Red Cell Distribution Width 13.4 % (11.0-16.0); White Blood Count 4.7 X10*3/uL (4.8-10.8)
[2025-02-05 16:40] LABS: Alanine Aminotransferase 53 U/L (0-31); Albumin Level 3.9 g/dL (3.5-5.0); Alkaline Phosphatase 58 U/L (39-117); Anion Gap 13 (12-20); Aspartate Amino Transferase 56 U/L (5-31); Bilirubin Total 0.3 mg/dL (0.0-1.0); Blood Urea Nitrogen 10 mg/dL (9-16); Carbon Dioxide 25 mmol/L (22-29); Chloride 102 mmol/L (96-108); Estimated Glomerular Filt Rate > 60; Glucose Random 96 mg/dL (60-115); Lipase 49 U/L (8-78); Magnesium 1.6 mg/dL (1.6-2.6); Potassium 3.7 mmol/L (3.3-5.1); Sodium 136 mmol/L (135-145); Total Protein 6.9 g/dL (6.5-8.0)
--- OUTSIDE RECORDS SUMMARY | 2025-02-05 16:50 | XMS_ITS | Encounter Summary ---
Author Organization [employer] Address [address] [facility] [address] [place] [address] Care Team Providers Care Computer Operations Analyst Name Role Phone Ana M Harrington MD Primary Care Provider + Encounter Details Date Type Department Care Team (Late st Contact Info) Description 06/10/[address] [facility] [address] [place], [place] [phone] Alaina Oseguera, MARLEN [address] [place] [address] Social History Tobacco Use Types Packs/Day Years Used Date Smoking Tobacco: Every Day Cigarettes Smokeless Tobacco: Never Alcohol Use Standard Drinks/Week Comments Never 0 (1 standard drink = 0.6 oz pur e alcohol) Depression Answer Date Recorded Patient Health Questionnaire-9 Score 3 03/29/2023 Housing Stability Answer Date Recorded What is your housing situation today? I have dilcia norton 08/01/[address] you li ve. Do you have problems with any of the following? None of the above 08/01/2023 Food Insecurity Answer Date Recorded Within the past 12 months, y ou worried that your food would run out before you got money to buy more: Never True 08/01/2023 Within the past 12 months,th e food you bought just didn't last and you didn't have enough money to get more: Never True Transportation Answer Date Recorded In the past 12 months, has l ack of transportation kept you from medical appts, meetings, work or from getting things needed for daily living? No 08/01/2023 Utilities Answer Date Recorded In the past 12 months, has t he electric, gas, oil or water company threatened to shut off services in your home? No 08/01/2023 Depression Answer Date Recorded Patient Health Questionnaire-2 Score 2 03/29/2023 Comments Unknown Sex and Gender Information Value Date Recorded Sex Assigned at Female 08/08/2022 10:21 AM EDT Legal Sex Female 10:21 AM EDT Gender Identity Female 08/08/2022 10:21 AM EDT Sexual Orientation Straight 08/08/2022 10 :21 AM EDT documented as of this encounter Plan of Treatment Not on file documented as of this encounter Procedures Procedure Name Priority Date/Time Associated Diagnosis Comments NM HEPATOBILIARY W PHARM Routine 06/24/2024 7:50 AM EDT documented in this encounter Results * NM Hepatobiliary w Pharm (06/24/2024 7:50 AM EDT) Anatomical Region Laterality Modality Body Nuclear Medicine 06/24/2024 7:50 AM EDT Narrative 06/27/2024 12:08 PM EDT ? [facility] ?[address] ?[place] [address] ?Nuclear Medicine Report ? Signed ? Patient: Carmen Whitten ?MR#: [id number] ?? [id number] ? : 1980 ?Acct:[id number] ? Age/Sex: 43 / F ?ADM Date: 06/24/24 ? Loc: HO.NUCMED ? Attending Dr: Aleyda Lima ANP-C ? Ordering Physician: Aleyda Lima-Shilpa ?? Date of Service: 06/24/24 ?? Procedure(s): NM hepatobiliary w pharm ?? Accession Number(s): [id number] ? cc: Aleyda Lima ANP-C; Ana M Harrington MD ? EXAMINATION: ?? BILIARY TRACT IMAGING STUDY WITH CCK ? CLINICAL INFORMATION: ?? Epigastric pain.. ? COMPARISON: ?? No previous biliary scan is available for comparison. Abdominal ?? ultrasound dated 08/01/[address] of the abdomen and pelvis dated ?? 09/03/2019 are available for comparison.. ? TECHNIQUE: ?? Serial gamma scintillation camera images were obtained over the abdomen ?? for a total observation period of 93 minutes following the intravenous ?? administration of 5 mCi Tc-99m mebrofenin. ? FINDINGS: ?? There is good concentration of activity in the liver by 5 minutes post ?? injection. Biliary activity is visualized by 15 minutes. The ?? gallbladder is well visualized by 25 minutes. Small bowel is well ?? visualized by 75 minutes. ? At 63 minutes post radiopharmaceutical injection, a 30-minute infusion ?? of 1.3 micrograms Sincalide was then begun and an additional 40 minutes ?? of images were obtained. There is good emptying of the gallbladder. By ?? the end of the study there is good clearance of activity from the liver ?? and visualization of diffuse small bowel activity. ? The calculated gallbladder ejection fraction is 97% (normal gallbladder ?? ejection fraction is greater than 35%). ? NM/NM hepatobiliary w pharm ?? IMPRESSION: ?? Visualization of the gallbladder is evidence of a patent cystic duct ?? and strong evidence against the diagnosis of acute cholecystitis. The ?? common bile duct is patent. Gallbladder emptying and ejection fraction ?? are normal. Liver function appears normal. ? Electronically signed by: ??Chi iSms MD ??06/27/2024 12:05 PM EDT ? Dictated By: ?Chi Sims MD ? Signed By: ?<Electronically signed by Chi Sims MD in OV> ? 06/27/24 1205 ? DD/ 0750 ? TD/TT: 06/24/24 0945 ? Tearoom Host/Hostess: RR ? Procedure Note Marcello, Image - 06/27/2024 [place] [address] Nuclear Medicine Report Signed Patient: Carmen WhittenMR#: [id number] : 1980Acct:[id number] Age/Sex: 43 / FADM Date: 06/24/24 Loc: [facility] Attending Dr: Aleyda SKAGGS Ordering Physician: Aleyda Lima Date of Service: 06/24/24 Procedure(s): NM hepatobiliary w pharm Accession Number(s): [id number] cc: Aleyda Lima; Ana M Harrington MD EXAMINATION: BILIARY TRACT IMAGING STUDY WITH CCK CLINICAL INFORMATION: Epigastric pain.. COMPARISON: No previous biliary scan is available for comparison. Abdominal ultrasound dated 08/01/[address] of the abdomen and pelvis dated 09/03/2019 are available for comparison.. TECHNIQUE: Serial gamma scintillation camera images were obtained over the abdomen for a total observation period of 93 minutes following the intravenous administration of 5 mCi Tc-99m mebrofenin. FINDINGS: There is good concentration of activity in the liver by 5 minutes post injection. Biliary activity is visualized by 15 minutes. The gallbladder is well visualized by 25 minutes. Small bowel is well visualized by 75 minutes. At 63 minutes post radiopharmaceutical injection, a 30-minute infusion of 1.3 micrograms Sincalide was then begun and an additional 40 minutes of images were obtained. There is good emptying of the gallbladder. By the end of the study there is good clearance of activity from the liver and visualization of diffuse small bowel activity. The calculated gallbladder ejection fraction is 97% (normal gallbladder ejection fraction is greater than 35%). NM/NM hepatobiliary w pharm IMPRESSION: Visualization of the gallbladder is evidence of a patent cystic duct and strong evidence against the diagnosis of acute cholecystitis. The common bile duct is patent. Gallbladder emptying and ejection fraction are normal. Liver function appears normal. Electronically signed by: Chi Sims MD 06/27/2024 12:05 PM EDT Dictated By: Chi Sims MD Signed By: <Electronically signed by Chi Sims MD inOV> 06/27/24 1205 DD/ 0750 TD/TT: 06/24/24 0945 Tearoom Host/Hostess: RR [facility] External Provider IMG NM PROCEDURES Final Result documented in this encounter Visit Diagnoses Not on filedocumented in this encounter Additional Health Concerns Assessment Noted Time PHQ-9 Depression Total Score: 3 03/29/20 23 10:31 AM EDT documented as of this encounter Care Teams Computer Operations Analyst Relationship Specialty Start Date End Date Ana M Harrington MD [address] [place] [phone] PCP - General Family Medicine 05/29/17 documented as of this encounter
--- OUTSIDE RECORDS SUMMARY | 2025-02-05 16:50 | XMS_ITS | Encounter Summary ---
Author Organization [employer] Address [address] [facility] 7t [place] [address] Care Team Providers Care Woven Label Designer Name Role Phone Ana M Harrington MD Primary Care Provider + Encounter Details Date Type Department Care Team ([facility] st Contact Info) Description 02/05/2025 Orders Only GENERIC EXTERNAL DATA DEPARTMENT Provider, Generic External Data Social History Tobacco Use Types Packs/Day Years Used Date Smoking Tobacco: Every Day Cigarettes Smokeless Tobacco: Never Alcohol Use Standard Drinks/Week Comments Never 0 (1 standard drink = 0.6 oz pur e alcohol) Depression Answer Date Recorded Patient Health Questionnaire-9 Score 3 03/29/2023 Housing Stability Answer Date Recorded What is your housing situation today? I have dilciatommie norton 08/01/[address] you [...] Patient Health Questionnaire-2 Score 2 03/29/2023 Comments No Sex and Gender Information Value Date Recorded Sex Assigned at Female 08/08/2022 10:21 AM EDT Legal Sex Female 10:21 AM EDT Gender Identity Female 08/08/2022 10:21 AM EDT Sexual Orientation Straight 08/08/2022 10 :21 AM EDT documented as of this encounter Plan of Treatment Not on file documented as of this encounter Procedures Procedure Name Priority Date/Time Associated Diagnosis Comments CBC WITH AUTO DIFFERENTIAL Routine 02/05/2025 4:20 PM EDT MAGNESIUM Routine 02/05/2025 4:20 PM EDT LIPASE Routine 02/05/2025 4:20 PM EDT COMPREHENSIVE METABOLIC PANEL Routine 02/05/2025 4:20 PM EDT documented in this encounter Results * Lipase (02/05/2025 4:20 PM EDT) Lipase 49 8 - 78 U/L [facility] 02/05/2025 4:2 0 PM EDT 02/05/2025 4:24 PM EDT us Generic External Data Provider LAB BLOOD ORDERAB LES Final Result Performing Organization Address [facility]/ZIP Co de Phone Number [facility] [address] [place] [phone] * Magnesium (02/05/2025 4:20 PM EDT) Magnesium 1.6 1.6 - 2.6 mg/dL [facility] 02/05/2025 4:20 PM EDT 02/05/2025 4:24 PM EDT us Generic External Data Provider LAB BLOOD ORDERAB LES Final Result Performing Organization Address [facility]/ZIP Co de Phone Number [facility] [address] [place] [phone] * (ABNORMAL) Comprehensive Metabolic Panel (02/05/2025 4:20 PM EDT) Sodium 136 135 - 145 mmol/L [facility] Potassium 3.7 3.3 - 5.1 mmol/L [facility] Chloride 102 96 - 108 mmol/L [facility] Carbon Dioxide 25 22 - 29 mmol/L [facility] Anion Gap 13 12 - 20 [facility] Urea Nitrogen (BUN) 10 9 - 16 mg/dL [facility] Creatinine, Serum 0.76 0.5 - 1.4 mg/dL [facility] Creatinine Clr Calc Pharmacy 84.0 [facility] Comment:Provided height and weight: 152.4 cm,69.7 kg.eGFR (calculated from the MDRD study equation) and eCrCl(calculated from the Cockcroft-Gault equation) are based ondifferent parameters and may not yield comparable results.If eCrCl result is absurd, please check patient'sheight/weight. Estimated Glomerular Filt Rate >60 [facility] Comment:Chronic Kidney Disea se: Estimated GFR < 60 mL/min/1.70d0Gqelit Kidney Disease: Estimated GFR < 15 mL/min/1.73m2 Glucose 96 60 - 115 mg/dL [facility] Calcium 9.0 8.4 - 10.2 mg/dL [facility] Bilirubin, Total 0.3 0.0 - 1.0 mg/dL [facility] Aspartate Amino Transferase 56(H) 5 - 31 U/L [facility] Alanine Aminotransferase 53(H) 0 - 31 U/L [facility] Total Protein 6.9 6.5 - 8.0 g/dL [facility] Albumin Level 3.9 3.5 - 5.0 g/dL [facility] Alkaline Phosphatase 58 39 - 117 U/L [facility] 02/05/2025 4:20 PM EDT 02/05/2025 4:24 PM EDT us Generic External Data Provider LAB BLOOD ORDERAB LES Final Result [facility] [address] [place] [address] [phone] * (ABNORMAL) CBC auto differential (02/05/2025 4:20 PM EDT) White Blood Count 4.7(L) 4.8 - 10.8 X10*3/uL [facility] Red Blood Count 4.18(L) 4.20 - 5.50 X10*6/uL [facility] Hemoglobin 12.4 12.0 - 16.0 g/dl [facility] Hematocrit 36.2(L) 37.0 - 47.0 % [facility] Mean Corpuscular Volume 86.6 80.0 - 98.0 fL [facility] Mean Corpuscular Hemoglobin 29.7 27.0 - 33.0 pg [facility] Mean Corpuscular HGB Conc 34.3 31.0 - 35.0 g/dl [facility] Red Cell Distribution Width 13.4 11.0 - 16.0 % [facility] Platelet Count 142(L) 160 - 400 X10*3/uL [facility] Mean Platelet Volume 9.6 9.4 - 12.3 fL [facility] Neutrophils Percent Auto 75.8(H) 45 - 73 % [facility] Imm Gran Pct Auto 0.6(H) 0.0 - 0.4 % [facility] Lymphocytes Percent Auto 14.1(L) 20 - 40 % [facility] Monocytes Percent Auto 8.6 2 - 11 % [facility] Eosinophils Percent Auto 0.0 0 - 4 % [facility] Basophils Percent Auto 0.9 0 - 2 % [facility] NRBC Pct Auto 0.0 0.0 - 0.2 /100WBC [facility] Neutrophils Absolute Auto 3.5 2.0 - 8.3 x10*3/uL [facility] Imm Gran Abs Auto 0.03 0.00 - 0.03 X10*3/uL [facility] Lymphocytes Absolute Auto 0.7(L) 1.2 - 4.9 X10*3/uL [facility] Monocytes Absolute Auto 0.4 0.1 - 1.2 X10*3/uL [facility] Eosinophils Absolute Auto 0.0 0.0 - 0.4 X10*3/uL [facility] Basophils Absolute Auto 0.0 0.0 - 0.2 X10*3/uL [facility] NRBC Abs Auto 0.000 0.0 - 0.012 X10*3/uL [facility] 02/05/2025 4:20 PM EDT 02/05/2025 4:24 PM EDT us Generic External Data Provider LAB BLOOD ORDERAB LES Final Result Performing Organization Address City/State/[facility] Co de Phone Number [facility] [address] [place] [phone] documented in this encounter Visit Diagnoses Not on filedocumented in this encounter Additional Health Concerns Assessment Noted Time PHQ-9 Depression Total Score: 3 03/29/20 23 10:31 AM EDT documented as of this encounter Care Teams Woven Label Designer Relationship Specialty Start Date End Date Ana M Harrington MD [address] [place] [phone] PCP - General Family Medicine 05/29/17 documented as of this encounter
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
--- OUTSIDE RECORDS SUMMARY | 2025-02-05 16:50 | XMS_ITS | Encounter Summary ---
Author Organization [employer] Address [address] [facility] 7t [place] [address] Care Team Providers Care Military Professional Name Role Phone Ana M Harrington MD Primary Care Provider + Reason for Visit * Reason Onset Date Comments Nurse Triage 09/04/2023 Encounter Details Date Type Department Care Team ([facility] st Contact Info) Description 09/04/2023 Telephone [facility] MEDICINE [address] [place], [place] [phone] Ana M Harrington MD [address] [place], [place] [phone] Nurse Triage Social History Tobacco Use Types Packs/Day Years [...] t he electric, gas, oil or water [employer] threatened to shut off services in your home? No 08/01/2023 Depression Answer Date Recorded Patient Health Questionnaire-2 Score 2 03/29/2023 Comments Unknown Sex and Gender Information Value Date Recorded Sex Assigned at Female 08/08/2022 10:21 AM EDT Legal Sex Female 10:21 AM EDT Gender Identity Female 08/08/2022 10:21 AM EDT Sexual Orientation Straight 08/08/2022 10 :21 AM EDT documented as of this encounter Miscellaneous Notes * Telephone Encounter - Padmini Mcclure RN - 09/04/2023 3:16 PM EST Triage call with [employer] Regulator Pin Inserter ID [id number] Pt was seen in ED 08/01 with follow up apt 08/04/23. Pt was seen for abdominal pain at that time. Pt reports abdominal pain has returned and was advised by PCP if this should happen will need to be referred to a specialist. Pt is reporting diarrhea several times daily and some nausea. Pt is given atele visit with PCP 09/07/23 @ 900am. Insurance is verified as active prior to booking. Protocol Used: Abdominal Pain - Female (Adult) Protocol-Based Disposition: See in Office or Video Visit within 2 Weeks Positive Triage Question: * Abdominal pain is a chronic symptom (recurrent or ongoing AND lasting > 4 weeks) * All higher-acuity triage questions were negative Care Advice Discussed: * Reassurance and Education - Stomach Pain * Drink Clear Fluids * Reasons To Call Back - Severe pain lasts over 1 hour - Constant pain lasts over 2 hours - Intermittent pains (e.g., comes and goes, cramps) lasts over 48 hours - You are - You become worse * Telephone Encounter - Kathe Alston - 09/04/2023 2:28 PM EST Symptoms: Abdominal Pain - Female - Not , Diarrhea, Nausea But No Vomiting Outcome: Schedule an appointment to be seen within 24 hours Reason: Caller denied all higher acuity questions The caller accepted this outcome Hungarian Speaker documented in this encounter Plan of Treatment Not on file documented as of this encounter Visit Diagnoses Not on filedocumented in this encounter Additional Health Concerns Assessment Noted Time PHQ-9 Depression Total Score: 3 03/29/20 23 10:31 AM EDT documented as of this encounter Care Teams Military Professional Relationship Specialty Start Date End Date Ana M Harrington MD [address] [place] [address] PCP - General Family Medicine 05/29/17 documented as of this encounter
[2025-02-05 17:06] LABS: Influenza A PCR NEGATIVE (Negative); Influenza B PCR NEGATIVE (Negative); Resp Syncy Virus RNA Qual PCR NEGATIVE (Negative); SARS COV2 PCR INHOUSE NEGATIVE (Negative)
--- NOTE | 2025-02-05 17:58 | ED.GENADULT ---
HPI - General Adult General Chief complaint: General Medical Stated complaint: Weakness, chills, no appetite Time Seen by Provider: 02/05/25 16:47 History of Present Illness HPI narrative: Patient is a 44-year-old female presents today with having generalized malaise aches chills decreased appetite. There is no increased frequency there is mild nausea there is no vomiting patient denies any coughing congestion. Feels tired. Has subjective fever. There is no vaginal discharge. There is no flank pain. Patient is from home. There is no new medication. It is not on any new medication. Related Data Previous Rx's ?Medication ?Instructions ?Recorded dicyclomine 20 mg tablet 20 mg PO QID 30 days #90 tabs 03/20/24 benzonatate 200 mg capsule 200 mg PO TID PRN cough #30 caps 04/12/24 cefuroxime axetil 500 mg tablet 500 mg PO BID 7 days #14 tabs 04/12/24 lorazepam 1 mg tablet (Ativan) 1 mg PO BEDTIME PRN anxiety/sleep 04/12/24 #10 tabs medroxyprogesterone 10 mg tablet 10 mg PO DAILY 10 days #30 tabs 11/04/24 (Provera) Allergies Allergy/AdvReac Type Severity Reaction Status Date / Time No Known Allergies Allergy Verified 02/05/25 16:05 [No Known Allergies*] Review of Systems Review of Systems: Positive generalized malaise Yes all other systems are reviewed and are negative [facility] Past Medical History Attestation statement: The following information was validated with the patient. Medical History Well woman exam COVID-19 Anemia Surgical History H/O LEEP Tubal ligation status Family History Family History Father Lung cancer Social History Social History Alcohol intake: never Patient Tobacco Use Status: Current everyday Tobacco user Tobacco use type: Cigarette Cigarettes Per Day: 3.0 Second Hand Smoke Exposure: No Advance Directives: No Advance Directives Information Provided: Yes Physical Exam ED Vital Signs: Vital Signs - 24 hr 02/05/25 16:02 02/05/25 18:07 02/05/25 19:01 Temperature 100.2 F 99.1 F 99.4 F Pulse Rate 112 H 103 H 101 H Respiratory Rate 18 20 22 H Blood Pressure 122/75 107/68 107/72 Pulse Oximetry 99 98 96 Oxygen Delivery Method Room Air Room Air Room Air BMI result Body Mass Index 30.0 Appearance: Alert. Oriented X3. No acute distress. Eyes: Pupils equal, round and reactive to light. ENT: Pharynx normal. Neck: Normal inspection. Neck supple. No lymph nodes noted. No crepitus CVS: Normal heart rate and rhythm. Pulses normal. Normal S1 and S2 Respiratory: No respiratory distress. Breath sounds normal. No Wheezing. No rales Abdomen: Soft and nontender. No rigidity. No distention. good BS x4 Skin: Skin warm and dry. Normal skin color. Normal skin turgor. Extremities: No lower extremity edema. Neurovascular intact to all extremities. No Lacerations. No Rash Neuro: Oriented X 3. No motor deficit. No sensory deficit. Moving all extermities. No slurred speech Medications Administered Discontinued Medications Generic Name Dose Route Start Last Admin Trade Name Freq PRN Reason Stop Dose Admin Sodium Chloride 1,000 mls @ 999 mls/hr 02/05/25 18:00 02/05/25 18:09 Ns IV 02/05/25 19:00 999 mls/hr .Q1H1M BEATA Administration Ketorolac Tromethamine 15 mg 02/05/25 17:57 02/05/25 18:10 Ketorolac Tromethamine 15 Mg/Ml Vial IVPUSH 02/05/25 17:58 15 mg ONCE ONE Administration Medical Decision Making Medical Decision Making [facility] Narrative: Patient had nonspecific generalized malaise weakness. My interpretation patient's chest x-ray is grossly normal there is no evidence for pneumonia no pneumothorax white count 4.7. Patient's COVID RSV were all negative. Patient's urine showed no signs of infection. Patient's electrolytes were unremarkable LFT shows some mild AST ALT elevation. Lipase is normal. No evidence for pancreatitis repeat abdominal exam is soft nontender likely viral in origin will have patient take Tylenol Motrin follow-up on an outpatient basis. Patient has no risk factors for Lyme ehrlichiosis babesiosis. Has no travel history. Heart rate came down with IV fluids. In stable condition. Differential Diagnosis Differential Diagnoses: The differential diagnosis associated with the presentation includes Viral illness Admission/Observation Consideration of admission/observation: Escalation of care including admission/observation considered Lab Data MDM Lab Attestation statement: I reviewed the patient's lab results. 02/05/25 16:20 02/05/25 16:20 Labs: Lab Results 02/05/25 02/05/25 Range/Units 16:20 18:26 WBC 4.7 L (4.8-10.8) X10*3/uL RBC 4.18 L (4.20-5.50) X10*6/uL Hgb 12.4 (12.0-16.0) g/dl Hct 36.2 L (37.0-47.0) % MCV 86.6 (80.0-98.0) fL MCH 29.7 (27.0-33.0) pg MCHC 34.3 (31.0-35.0) g/dl RDW 13.4 (11.0-16.0) % Plt Count 142 L D (160-400) X10*3/uL MPV 9.6 (9.4-12.3) fL Immature Gran % (Auto) 0.6 H (0.0-0.4) % Neut % (Auto) 75.8 H (45-73) % Lymph % (Auto) 14.1 L (20-40) % [place] % (Auto) 8.6 (2-11) % Eos % (Auto) 0.0 (0-4) % Baso % (Auto) 0.9 (0-2) % Lymph # (Auto) 0.7 L (1.2-4.9) X10*3/uL [place] # (Auto) 0.4 (0.1-1.2) X10*3/uL Eos # (Auto) 0.0 (0.0-0.4) X10*3/uL Baso # (Auto) 0.0 (0.0-0.2) X10*3/uL Abs Immat Gran (auto) 0.03 (0.00-0.03) X10*3/uL Absolute Neuts (auto) 3.5 (2.0-8.3) x10*3/uL Absolute Nucleated RBC 0.000 (0.0-0.012) X10*3/uL Nucleated RBC % (auto) 0.0 (0.0-0.2) /100WBC Sodium 136 (135-145) mmol/L Potassium 3.7 (3.3-5.1) mmol/L Chloride 102 (96-108) mmol/L Carbon Dioxide 25 (22-29) mmol/L Anion Gap 13 (12-20) BUN 10 (9-16) mg/dL Creatinine 0.76 (0.5-1.4) mg/dL Estim Creat Clear Calc 84.0 Estimated GFR > 60 Random Glucose 96 (60-115) mg/dL Calcium 9.0 (8.4-10.2) mg/dL Magnesium 1.6 (1.6-2.6) mg/dL Total Bilirubin 0.3 (0.0-1.0) mg/dL AST 56 H (5-31) U/L ALT 53 H (0-31) U/L Alkaline Phosphatase 58 (39-117) U/L Total Protein 6.9 (6.5-8.0) g/dL Albumin 3.9 (3.5-5.0) g/dL Lipase 49 (8-78) U/L Urine Color Yellow Urine Appearance Clear Urine pH 6.5 (5.0-9.0) Ur Specific M[place]o <= 1.005 (1.005-1.025) Urine Protein Negative (Neg-Trace) mg/dL Urine Glucose (UA) Negative (Negative) mg/dL Urine Ketones Negative (Negative) mg/dL Urine Blood Moderate (2+) H (Negative) Urine Nitrite Negative (Negative) Ur Leukocyte Esterase Negative (Negative) Urine RBC 11-20 H (0-2) /HPF Urine WBC 0-5 (0-5) /HPF Ur Squamous Epith Cells 3-5 (0-2) /HPF Urine Bacteria None Seen (None Seen) Hyaline Casts 0-2 (0-2) /LPF Urine Test NEGATIVE (NEGATIVE) Influenza Type A (PCR) NEGATIVE (Negative) Influenza Type B (PCR) NEGATIVE (Negative) RSV RNA Qual (PCR) NEGATIVE (Negative) SARS-CoV-2 RNA (RT-PCR) NEGATIVE (Negative) Independent Interpretation I performed an independent interpretation of an: Plain X-Ray (Chest x-ray negative for pneumonia pneumothorax) Radiology Impression Discussion of test interpretation with radiology: I have reviewed the radiologist's reading. Independent Historian Clinical information obtained from an independent historian. History obtained from or confirmed by: Spouse Discharge Plan Discharge Clinical Impression: Viral illness Patient Disposition: Home, Self-Care Instructions: Viral Syndrome (ED) Prescriptions: No Action medroxyprogesterone [Provera] 10 mg tablet 10 mg PO DAILY 10 Days Qty: 30 0RF Rx Instructions: start Provera 1 tablet daily from day 15-24 cyclically every months, day 1 being 1st day of menses benzonatate 200 mg capsule 200 mg PO TID PRN (Reason: cough) Qty: 30 0RF cefuroxime axetil 500 mg tablet 500 mg PO BID 7 Days Qty: 14 0RF lorazepam [Ativan] 1 mg tablet 1 mg PO BEDTIME PRN (Reason: anxiety/sleep) Qty: 10 0RF dicyclomine 20 mg tablet 20 mg PO QID 30 Days Qty: 90 1RF Referrals: Ana M Harrington MD [Primary Care Provider] - 02/07/25 Print Language: Tajik
[2025-02-05 18:07] VITALS: BP 107/68; PULSE 103; RESP 20; TEMP 37.3; O2SAT 98
[2025-02-05] MEDS: 0.9 % Sodium Chloride 1,000 ML 999 ML IV (18:09)
[2025-02-05] MEDS: Ketorolac Tromethamine 15 MG/ML VIAL IVPUSH (18:10)
[2025-02-05 18:44] LABS: Appearance Urine Clear; Color Urine Yellow; Glucose Urine UA Negative (Negative); Leukocyte Esterase Urine Negative (Negative); Nitrite Urine Negative (Negative); PH 6.5 (5.0-9.0); Specific Gravity - Urine <= 1.005 (1.005-1.025); UMIC TRIGGER UACC YES; Urine Blood Moderate (2+) (Negative); Urine Ketones Negative (Negative); Urine Protein Negative (Neg-Trace)
[2025-02-05 18:45] LABS: UPreg QC Valid YES; Urine Pregnancy NEGATIVE (NEGATIVE)
[2025-02-05 19:01] VITALS: BP 107/72; PULSE 101; RESP 22; TEMP 37.4; O2SAT 96
--- NOTE | 2025-02-05 19:30 | PC.NURSE ---
delay in ivf administration as pt bending arm, pt re-educated to keep arm straight, fluids placed on pump for infusion.
[2025-02-05 19:58] LABS: Bacteria Urine None Seen (None Seen); Hyaline Casts Urine 0-2 /LPF (0-2); WBC Urine 0-5 /HPF (0-5)
[2025-02-05 20:14] VITALS: BP 104/65; PULSE 92; RESP 16; TEMP 37.1; O2SAT 98
--- NOTE | 2025-02-05 20:15 | PC.NURSE ---
per MD, pt vitals improved and pt can be discharged without receiving 2nd bag ivf, offered for pt to receive 2nd bag, states she'd rather be discharged now.
== END 2025-02-05 20:20 | disposition home or self-care (01) ==
PROVIDERS: Physician Assistant Medical; Emergency Provider Emergency Medicine Emergency Medical Services; PCP Internal Medicine
DX: B34.9 Viral infection, unspecified (principal); R53.81 Other malaise; R68.83 Chills (without fever); Z03.818 Encounter for observation for suspected exposure to other biological agents ruled out; F17.210 Nicotine dependence, cigarettes, uncomplicated; D64.9 Anemia, unspecified; Z79.899 Other long term (current) drug therapy
CPT/HCPCS: 0241U; 71045; 80053; 81001; 81025; 83690; 83735; 85025; 96361; 96374; 99284; J1885

== ENCOUNTER → 2025-02-05 17:59 | Outpatient (BNV) | payer MEDICAID, SELFPAY | PROVIDERS: Emergency Provider Emergency Medicine Emergency Medical Services; PCP Internal Medicine; Visit Provider Radiology Diagnostic Radiology | DX: R06.02 Shortness of breath (principal) | CPT/HCPCS: 71045 ==

== ENCOUNTER 2025-07-04 13:19 | Outpatient (REF) | payer MEDICAID, SELFPAY ==
--- OUTSIDE RECORDS SUMMARY | 2025-07-04 12:00 | XMS_ITS | Encounter Summary ---
Author Organization [employer] Address [address] [place] [address] 7t [place] [address] Care Team Providers Care Hydraulic Plumber Name Role Phone Ana M Harrington MD Primary Care Provider + Reason for Referral * Imaging (Routine) - Authorized Specialty Diagnoses / Procedures Referred By Contac t Referred To Contact Radiology Diagnoses Forgetfulness Procedures MR Brain w/o Contrast Ana M Harrington MD [address] [place] [address] Phone: tel: fax: [address] Phone: tel: fax: Referral ID Status Reason Start Date Expiration Date V isits Requested Visits Authorized [id number] Authorized 07/04/2025 07/04/2026 1 1 Encounter Details Date Type Department Care Team (Latest Contact Info) Description 07/04/2025 12:00 PM EDT Office Visit [facility] MEDICINE [address] [place], [place] [phone] Ana M Harrington MD [address] [place], [place] [phone] Forgetfulness (Primary Dx); Perimenopause Social History Tobacco Use Types Packs/Day Years [...] Date Recorded Patient Health Questionnaire-2 Score 2 07/04/2025 Comments No Sex and Gender Information Value Date Recorded Sex Assigned at Female 08/08/2022 10:21 AM EDT Legal Sex Female 10:21 AM EDT Gender Identity Female 08/08/2022 10:21 AM EDT Sexual Orientation Straight 08/08/2022 10 :21 AM EDT documented as of this encounter Last Filed Vital Signs Vital Sign Reading Time Taken Comments Blood Pressure 118/68 07/04/2025 12:23 PM EDT Pulse 81 07/04/2025 12:23 PM EDT Temperature 36.6 C (97.9 F) 07/04/2025 12:23 PM EDT Respiratory Rate 20 07/04/2025 12:23 PM EDT Oxygen Saturation 98% 07/04/2025 12:23 PM EDT Inhaled Oxygen Concentration - - Weight 71.7 kg (158 lb 2 oz) 07/04/2025 12:23 PM EDT Height 152.4 cm (5') 07/04/2025 12:23 PM EDT Body Mass Index 30.88 07/04/2025 12:23 PM EDT documented in this encounter Functional Status * Over the past 2 weeks, how often have you been bothered by any of the following problems? Question Answer Date of Assessment Author Little interest or pleasure in doing things Several days 07/04/2025 12:51 PM JAIMET Ana M Harrington MD Feeling down, depressed, or hopeless Several days 07/04/2025 12:51 PM JAIMET Ana M Harrington MD Patient Health Questionnaire-2 Score 2 07/04/2025 12:51 PM EDT Myranda Harrington MD * If you checked off any problems on this questionnaire so far, Question Answer Date of Assessment Author How difficult have these problems made it for you to do your work, take care of things at home, or get along with other people? Somewhat difficult 07/04/2025 12:51 PM EDT Ana M Harrington MD documented as of this encounter Plan of Treatment Upcoming Encounters Date Type Department Care Team (Late st Contact Info) Description 08/20/2025 10:30 AM EST Office Visit [facility] MEDICINE [address] [place] [phone] Ana M Harrington MD [address] [place] [phone] Scheduled Orders Name Type Priority Associated Diagnoses Orde r Schedule MR Brain w/o Contrast Imaging Routine Forgetfulness Expected: 07/04/2025 (Approximate), Expires: 07/04/2026 Vitamin B12/Folate, Serum Panel Lab Routine Forgetfulness Expected: 07/04/2025, Expires: 07/04/2026 Comprehensive Metabolic Panel Lab Routine Forgetfulness Expected: 07/04/2025 (Approximate), Expires: 07/04/2026 TSH with Reflex to Free T4 Lab Routine Forgetfulness Perimenopause Expected: 07/04/2025 (Approximate), Expires: 07/04/2026 Hemoglobin A1c Lab Routine Forgetfulness Expected: 07/04/2025 (Approximate), Expires: 07/04/2026 CBC auto differential Lab Routine Forgetfulness Expected: 07/04/2025 (Approximate), Expires: 07/04/2026 HIV-1/2 Antigen and Antibodies, Fourth Generation, with Reflexes Lab Routine Forgetfulness Expected: 07/04/2025 (Approximate), Expires: 07/04/2026 Syphilis Screen Lab Routine Forgetfulness Expected: 07/04/2025 (Approximate), Expires: 07/04/2026 documented as of this encounter Visit Diagnoses Diagnosis Forgetfulness- Primary Other general symptoms Perimenopause Symptomatic menopausal or female climacteric states documented in this encounter Additional Health Concerns Assessment Noted Time PHQ-9 Depression Total Score: 3 03/29/20 23 10:31 AM EDT documented as of this encounter Care Teams Hydraulic Plumber Relationship Specialty Start Date End Date Ana M Harrington MD [address] [place] [phone] PCP - General Family Medicine 05/29/17 documented as of this encounter
--- OUTSIDE RECORDS SUMMARY | 2025-07-04 14:34 | XMS_ITS | Encounter Summary ---
Author Organization [employer] Address [address] [place] [address] Care Team Providers Care Turner Off Name Role Phone Ana M Harrington MD Primary Care Provider + Encounter Details Date Type Department Care Team (Late st Contact Info) Description 06/10/[address] [facility] [address] [place], [place] [phone] Alaina Oseguera FNP [address] [place], [place] [phone] Social History Tobacco Use Types Packs/Day Years [...] Description 08/20/2025 10:30 AM EST Office [address] [facility] MEDICINE [address] [place], [place] [phone] Ana M Harrington MD [address] [place], [place] [phone] documented as of this encounter Procedures Procedure Name Priority Date/Time Associated Diagnosis Comments NM HEPATOBILIARY W PHARM Routine 06/24/2024 7:50 AM EDT documented in this encounter Results * NM Hepatobiliary w Pharm (06/24/2024 7:50 AM EDT) Anatomical Region Laterality Modality Body Nuclear Medicine 06/24/2024 7:50 AM EDT Narrative 06/27/2024 12:08 PM EDT [address] [address] Nuclear Medicine Report Signed Patient: Carmen Whitten MR#: [id number] : 1980 Acct:[id number] Age/Sex: 43 / F ADM Date: 06/24/24 Loc: [facility] Attending Dr: Aleyda SKAGGS Ordering Physician: Aleyda Lima Date of Service: 06/24/24 Procedure(s): NM hepatobiliary w pharm Accession Number(s): [id number] cc: Aleyda Lima; Ana M Harrington MD [...] Chi Sims MD 06/27/2024 12:05 PM EDT RP Dictated By: Chi Sims MD Signed By: <Electronically signed by Chi Sims MD in OV> 06/27/24 1205 DD/ 0750 TD/TT: 06/24/24 0945 Spragger: RR Procedure Note Donotuseinterpreter, Image - 06/27/[address] [address] Nuclear Medicine Report Signed Patient: Carmen Whitten#: [id number] : 1980Acct:[id number] Age/Sex: 43 / FADM Date: 06/24/24 Loc: [facility] Attending Dr: Aleyda SKAGGS Ordering Physician: Aleyda Lima Date of Service: 06/24/24 Procedure(s): DARREL hepatobiliary w pharm Accession Number(s): [id number] cc: Aleyda Lima-C; Ana M Harrington MD EXAMINATION: BILIARY TRACT [...] 06/27/24 1205 DD/ 0750 TD/TT: 06/24/24 0945 Spragger: RR [facility] External Provider IMG NM PROCEDURES Final Result documented in this encounter Visit Diagnoses Not on filedocumented in this encounter Additional Health Concerns Assessment Noted Time PHQ-9 Depression Total Score: 3 03/29/20 23 10:31 AM EDT documented as of this encounter Care Teams Turner Off Relationship Specialty Start Date End Date Ana M Harrington MD [address] [place] [phone] PCP - General Family Medicine 05/29/17 documented as of this encounter
--- OUTSIDE RECORDS SUMMARY | 2025-07-04 14:34 | XMS_ITS | Encounter Summary ---
Author Organization [employer] Address [address] [facility] [address] [place] [address] Care Team Providers Care Logging Specialist Name Role Phone Ana M Harrington MD Primary Care Provider + Encounter Details Date Type Department Care Team (Latest Contact Info) Description 07/04/2025 Travel Social History Tobacco Use Types Packs/Day Years [...] AM EDT documented as of this encounter Functional Status * Over the past 2 weeks, how often have you been bothered by any of the following problems? Question Answer Date of Assessment Author Little interest or pleasure in doing things Several days 07/04/2025 12:51 PM EDT Ana M Harrington MD Feeling down, depressed, or hopeless Several days 07/04/2025 12:51 PM EDT Ana M Harrington MD Patient Health Questionnaire-2 [...] Description 08/20/2025 10:30 AM EST Office Visit [facility] MEDICINE [address] [place], [place] [phone] Ana M Harrington MD [address] [place] [address] documented as of this encounter Visit Diagnoses Not on filedocumented in this encounter Additional Health Concerns Assessment Noted Time PHQ-9 Depression Total Score: 3 03/29/20 23 10:31 AM EDT documented as of this encounter Care Teams Logging Specialist Relationship Specialty Start Date End Date Ana M Harrington MD [address] [place], [place] [phone] PCP - General Family Medicine 05/29/17 documented as of this encounter
--- OUTSIDE RECORDS SUMMARY | 2025-07-04 14:34 | XMS_ITS | Clinical Summary ---
Author Organization [employer] Address [address] [facility] [address] [place] [address] Care Team Providers Care Lead Auditor Name Role Phone Dominique Harrington MD Primary Care Provider + Allergies No known active allergies Medications * This document contains information received from the source organization and may not represent a complete record from that organization. Blood Pressure Monitor kitIndications:D yspnea on exertion Use as directed 3x/week 1 kit 3 Active meloxicam (Mobic) 15 MG tabletIndication s:Arthralgia, unspecified joint TAKE 1 TABLET BY MOUTH EVERY DAY IN THE MORNING 30 tablet 4 Active cyclobenzaprine (Flexeril) 10 MG tabletIndication s:Arthralgia, unspecified joint Take 1 tablet (10 mg) by mouth at bedtime for 10 days. 10 tablet 3 07/04/20 25 Discontinu ed(Therapy completed) Active Problems Problem Noted Date Diagnosed Date Forgetfulness 07/04/2025 Blurry vision, bilateral 01/12/2024 Assessment & Plan [...] and hydration FU 3 m, should check [facility] if HRT needed Epigastric pain 08/04/2023 Assessment [...] AM EDT): s/p biopsy, benign fu with [facility] Jul 2023 Encounter for preventive health examination [...] obtain last pap smear report FU with [facility] Mammogram to be ordered Bone density test [...] biopsy currently on Provera. Follow up with [facility] in [address] scan, chest [...] Encounters Date Type Department Care Team Description 07/04/2025 12:00 PM EDT Office Visit [facility] [address] [place] [address] Dominique Harrington MD Forgetfulness (Primary Dx); Perimenopause 07/04/2025 Travel 06/16/2025 Telephone [facility] [address] [place] [address] Dominique Harrington MD Nurse Triage from Last 3 Months Immunizations Immunization Administration Dates Next Due Hep B, adult [...] your housing situation today? I have dilcia sing 08/01/[address] you li [...] Mass Index 30.88 07/04/2025 12:23 PM EDT Plan of Treatment Upcoming Encounters Date Type Department Care Team (Late st Contact Info) Description 08/20/2025 10:30 AM EST Office Visit [facility] [address] [place] [address] Dominique Harrington MD [address] [place] [address] Health Maintenance Due Date Last Done Comments Disability Screening 1982 Alcohol/Substance Use Screening 1994 Family Planning (PISQ) 1997 HPV Vaccines (1 - 3-dose series) 1997 Hepatitis A Vaccines (1 of 2 - Risk 2-dose series) 2001 Pneumococcal Vaccine: Pediatrics (0 to 5 Years) and At-Risk Patients (6 to 49) Years (1 of 2 - PCV) 2001 SDOH Screening 01/02/2025 01/03/2024 COVID-19 Vaccine (1 - 2023-2 5 season) 2025 Influenza Vaccine (#1) 2025 09/09/2015 Mammogram 01/16/2026 01/17/2024 Depression Screening 07/04/2026 07/04/2025, 03/29/2023 Tobacco Screening 07/04/2026 07/04/2025 Lipid Panel 04/06/2028 04/06/2023, 07/30/2020 Cervical Cancer [...] patient's age to complete this topic Meningococcal B Vaccine Aged Out No l onger eligible based on patient's age to complete [...] Procedure Name Priority Date/Time Associated Diagnosis Comments PAP SMEAR Routine 02/21/2024 10:55 AM EDT [...] Recently Relevant to Health Maintenance Results * Pap Smear (02/21/2024 10:55 AM EDT) 02/21/2024 10:5 5 AM EDT 02/22/2024 10:15 AM EDT [facility] - 03/11/2024 11:57 AM EDT ----- ------- Name: Carmen Whitten Age/Sex: 43/F : 1980 Unit#: [id number] Attend Dr: Kalin Portillo MD Re02/21/24 Status: DEP REF Location: .LNP Disch: ----- ------- SPEC : [id number] RECD: 02/22/24-1015 STATUS: JULI PAINTER NUM: [id number] KOJO: 02/21/24-[address]: Kalin Portillo MD ENTERED: 02/22/24-1315 SP TYPE: Pap Smr OT DR: Dominique Harrington MD ORDERED: Pap Smear Interpretation Satisfactory for evaluation. Negative for intraepithelial lesion or malignancy. Coccobacilli consistent with shift in vaginal klaudia. HPV mRNA E6/E7: NOT DETECTED This assay detects E6/E7 viral messenger RNA (mRNA) from 14 high-risk HPV types (16, 18, 31, 33, 35, 39, 45, 51, 52, 56, 58, 59, 66, 68) HPV testing performed by [facility], [place], [place]. See reference laboratory portion of the EMR for entire report. Clinical Information LMP:01/20/24 Previous PAP test:2019 ELVIRA 3 Material Received ThinPrep-Cervical Copies To: Dominique Harrington MD [address] [place] [address] Kalin Portillo MD [address] [place] [address] Dr. Sorto [address] [place] [phone] ----- ------- Signed (signature on file) Liza Coker Cecy 03/11/24 1157 ----- ------- END OF REPORT us Generic External Data Provider LAB CYTOLOGY JORDAN CRAEN Final Result [facility] [address] [place] [address] [phone] * BI Mammogram Screening Tomosynthesis Bilateral (01/17/2024 12:12 PM EDT) Anatomical Region Laterality Modality Breast Bilateral Mammography 01/17/2024 12:1 2 PM EDT Narrative 01/22/2024 6:14 AM EDT [address] [place] [address] Mammography Report Signed Patient: Carmen Whitten MR#: [id number] 1346 : 1980 Acct:[id number] Age/Sex: 43 / F ADM Date: 01/17/24 Loc: HO.MAMMO Attending Dr: Dominique Harrington MD Ordering Physician: Dominique Harrington MD Results: 1Ne gative Date of Service: 01/17/24 Follow Up: 1 Year From Orig inal Mammogram Procedure(s): MM tomosynthesis screening BI Accession Number(s): [id number] cc: Dominique Harrington MD EXAMINATION: MM SCREENING [...] in OV> 01/22/24 0611 DD/ 1212 TD/TT: Bulk Mail Technician: Procedure Note Donotuseinterpreter, Image - 01/22/[address] [place] [address] Mammography Report Signed Patient: Carmen Whitten#: [id number] 1346 : 1980Acct:[id number] Age/Sex: 43 / FADM Date: 01/17/24 Loc: HO.MAMMO Attending Dr: Dominique Harrington MD Ordering Physician: Dominique Harrington MDResults: 1Ne gative Date of Service: 01/17/24Follow Up: 1 Year From Orig inal Mammogram Procedure(s): MM tomosynthesis screening BI Accession Number(s): [id number] cc: Dominique Harrington MD EXAMINATION: MM SCREENING [...] in OV> 01/22/24 0611 DD/ 1212 TD/TT: Bulk Mail Technician: Dominique Harrington MD IMG BI PROCEDURES Final Result * (ABNORMAL) Lipid Panel with Reflex to Direct LDL (04/06/2023 11:18 AM EDT) Cholesterol, Total 209(H) <200 mg/dL [facility] [employer] HDL Cholesterol 46(L) > OR = 50 mg/dL [facility] [employer] [place] [employer] Triglycerides 103 <150 mg/dL [facility] [place] [facility] [employer] LDL Cholesterol 141(H) mg/dL (calc) [facility] [employer] Comment: Reference range: <100 Desirable range <100 mg/dL for primary prevention; <70 mg/dL for patients with CHD or diabetic patients with > or = 2 CHD risk factors. LDL-C is now calculated using the Rosanna calculation, which is a validated novel method providing better accuracy than the Friedewald equation in the estimation of LDL-C. Mynor SS et al. CIPRIANO. 2013;310(19): 3906-8954 (http://ShotSpotter/faq/XUW063) Chol/HDLC Ratio 4.5 <5.0 (calc) [facility] [employer] Non-HDL Cholesterol 163(H) <130 mg/dL (calc) [facility] Comment: For patients with diabetes plus 1 major ASCVD risk factor, treating to a non-HDL-C goal of <100 mg/dL (LDL-C of <70 mg/dL) is considered a therapeutic option. 04/06/2023 11:1 8 AM EDT 04/06/2023 11:19 AM EDT Narrative [facility] - 04/13/2023 5:34 AM EDT FASTING:YES FASTING: YES us Dominique Harrington MD LAB BLOOD ORDERABLES Fin al Result [facility] [address], [place] [address] [facility] [employer] [place] [employer] [address] [place] [address] * (ABNORMAL) Hepatitis Panel, General (04/06/2023 11:18 AM EDT) Hepatitis A Antibody Total REACTIVE( A) NON-REACT WARREN [facility] Comment: For additional information, please refer to http://[facility].KeraFAST/faq/EYW211 (This link is being provided for informational/ educational purposes only.) Hepatitis B Surface Antibody QL NON-REACT WARREN NON-REACT WARREN [facility] Hepatitis B Surface Ag NON-REACT WARREN NON-REACT WARREN [facility] Comment: For additional information, please refer to http://FidusNet/faq/HFY436 (This link is being provided for informational/ educational purposes only.) Hepatitis B Core Antibody Total NON-REACT WARREN NON-REACT WARREN [facility] [place] [facility] Comment: For additional information, please refer to http://[facility].KeraFAST/faq/GMY567 (This link is being provided for informational/ educational purposes only.) Hepatitis C Antibody NON-REACT WARREN NON-REACT WARREN [facility] [employer] [place] [employer] Comment: HCV antibody was non-reactive. There is no laboratory evidence of HCV infection. In most cases, no further action is required. However, if recent HCV exposure is suspected, a test for HCV RNA (test code 92270) is suggested. For additional information please refer to http://FidusNet/faq/FKP69n6 (This link is being provided for informational/ educational purposes only.) 04/06/2023 11:1 8 AM EDT 04/06/2023 11:19 AM EDT Narrative [facility] - 04/13/2023 5:34 AM EDT FASTING:YES FASTING: YES Dominique Harrington MD LAB BLOOD ORDERABLES Fin al Result [facility] [address], [place] [address] [facility] [address] [place] [address] * HIV-1/2 Antigen and Antibodies, Fourth Generation, with Reflexes (04/06/2023 11:18 AM EDT) [facility] HIV Antigen/Antibody, 4th Generation NON-REAC TIVE NON-REAC TIVE [facility] [place] [facility] Comment: HIV-1 antigen and HIV-1/HIV-2 antibodies were not detected. There is no laboratory evidence of HIV infection. PLEASE NOTE: This information has been disclosed to you from records whose confidentiality may be protected by state law. If your state requires such protection, then the state law prohibits you from making any further disclosure of the information without the specific written consent of the person to whom it pertains, or as otherwise permitted by law. A general authorization for the release of medical or other information is NOT sufficient for this purpose. For additional information please refer to http://education.KeraFAST/faq/KMB675 (This link is being provided for informational/ educational purposes only.) The performance of this assay has not been clinically validated in patients less than 2 years old. Blood Venous blood specimen / Unknown 04/06/2023 11:18 AM EDT 04/06/2023 11:19 AM EDT Narrative [facility] - 04/13/2023 5:34 AM EDT FASTING:YES FASTING: YES Dominique Harrington MD LAB BLOOD ORDERABLES Fin al Result [facility] [address], [place] [address] [facility] [address] [place] [address] from Last 3 Months or Most Recently Relevant to Health Maintenance Insurance [facility] C3 HSN PARTIAL Care Teams Lead Auditor Relationship Specialty Start Date End Date Dominique Harrington MD [address] [place] [address] PCP - General Family Medicine 05/29/17
--- OUTSIDE RECORDS SUMMARY | 2025-07-04 14:34 | XMS_ITS | Encounter Summary ---
Author Organization [employer] Address [address] [facility] 7[address] [place] [address] Care Team Providers Care Finance Officer Name Role Phone Ana M Harrington MD Primary Care Provider + Reason for Visit * Reason Onset Date Comments Nurse Triage 09/04/2023 Encounter Details Date Type Department Care Team ([facility] Contact Info) Description 09/04/2023 Telephone [facility] [address] [place], [place] [phone] Ana M Harrington MD [address] [place], [place] [phone] Nurse Triage Social History Tobacco Use Types [...] 09/04/2023 3:16 PM EST Triage call with Bapul Chief Client Officer ID [id number] Pt was seen in ED 08/01 with [...] acuity questions The caller accepted this outcome Maltese Speaker documented in this encounter Plan of Treatment Upcoming Encounters Date Type Department Care Team (Late st Contact Info) Description 08/20/2025 10:30 AM EST Office Visit [facility] [address] [place] [address] Ana M Harrington MD [address] [place] [address] documented as of this encounter Visit Diagnoses Not on filedocumented in this encounter Additional Health Concerns Assessment Noted Time PHQ-9 Depression Total Score: 3 03/29/20 23 10:31 AM EDT documented as of this encounter Care Teams Finance Officer Relationship Specialty Start Date End Date Ana M Harrington MD [address] [place] [id number] PCP - General Family Medicine 05/29/17 documented as of this encounter
[2025-07-04 16:04] LABS: MANUAL DIFF FLAG NO
[2025-07-04 16:11] LABS: Hematocrit 37.6 % (37.0-47.0); Hemoglobin 12.6 g/dl (12.0-16.0); Imm Gran Abs Auto 0.03 X10*3/uL (0.00-0.03); Imm Gran Pct Auto 0.3 % (0.0-0.4); Lymphocytes Absolute Auto 2.1 X10*3/uL (1.2-4.9); Mean Corpuscular HGB Conc 33.5 g/dl (31.0-35.0); Mean Corpuscular Hemoglobin 29.2 pg (27.0-33.0); Mean Corpuscular Volume 87.0 fL (80.0-98.0); NRBC Abs Auto 0.000 X10*3/uL (0.0-0.012); NRBC Pct Auto 0.0 /100WBC (0.0-0.2); Platelet Count 239 X10*3/uL (160-400); Red Blood Count 4.32 X10*6/uL (4.20-5.50); White Blood Count 9.6 X10*3/uL (4.8-10.8)
[2025-07-04 16:16] LABS: Total Hemoglobin (HGBA1C) 3197.6157 umol/L
[2025-07-04 16:36] LABS: Alanine Aminotransferase 19 U/L (0-31); Albumin Level 4.3 g/dL (3.5-5.0); Alkaline Phosphatase 56 U/L (39-117); Anion Gap 12 (12-20); Aspartate Amino Transferase 26 U/L (5-31); Blood Urea Nitrogen 10 mg/dL (9-16); Calcium 9.7 mg/dL (8.4-10.2); Carbon Dioxide 25 mmol/L (22-29); Chloride 106 mmol/L (96-108); Estimated Glomerular Filt Rate > 60; Potassium 4.2 mmol/L (3.3-5.1); Sodium 139 mmol/L (135-145); Total Protein 7.2 g/dL (6.5-8.0)
[2025-07-04 16:58] LABS: Folate 9.3 ng/mL (> or = 4.0); Vitamin B12 380 pg/mL (200-900)
[2025-07-07 04:00] LABS: Syphilis Screen Nonreactive (Nonreactive)
[2025-07-07 04:26] LABS: HIV Num 1 0.22 S/CO (0.00-0.99)
== END 2025-07-04 13:20 | disposition home or self-care (01) ==
LOC: HO.HHCL 13:19
PROVIDERS: Internal Medicine; PCP Internal Medicine; Visit Provider Internal Medicine
DX: Z11.3 Encounter for screening for infections with a predominantly sexual mode of transmission (principal); Z11.4 Encounter for screening for human immunodeficiency virus [HIV]; N95.1 Menopausal and female climacteric states; R68.89 Other general symptoms and signs
CPT/HCPCS: 36415; 80053; 82607; 82746; 83036; 84443; 85025; 86780; 87389

== ENCOUNTER 2025-09-01 09:47 | Outpatient (REF) | payer MEDICAID, SELFPAY ==
[2025-09-02 06:02] LABS: Follicle Stimulating Hormone 86.9 mIU/mL
[2025-09-06 07:49] LABS: Estradiol Ultra Sensitive 17 pg/mL
[2025-09-06 17:32] LABS: Testosterone, Free 6.6 pg/mL (0.1-6.4)
== END 2025-09-01 09:48 | disposition home or self-care (01) ==
LOC: HO.HHCL 09:47
PROVIDERS: PCP Internal Medicine; Visit Provider Internal Medicine
DX: N95.1 Menopausal and female climacteric states (principal); L68.0 Hirsutism
CPT/HCPCS: 36415; 82627; 82670; 83001; 83002; 84402; 84403

== ENCOUNTER 2025-09-02 17:08 | Outpatient (REF) | payer MEDICAID, SELFPAY ==
--- NOTE | ~2025-09-02 | MR_ITS ---
EXAMINATION: MR BRAIN WITHOUT IV CONTRAST HISTORY: forgetfulness x 1y TECHNIQUE: Sagittal T1, coronal FLAIR, and axial T1, FLAIR, T2, gradient echo, and diffusion weighted MR images of the brain were obtained. COMPARISON: Comparison is made with the prior examination dated 04/21/2022. FINDINGS: The pituitary is normal in size. The cerebellar tonsils are normally located. A single small nonspecific white matter hyperintensity is noted in the right frontal lobe without change. The brain parenchyma is otherwise unremarkable, demonstrating normal lucas/white differentiation. There is no mass effect or midline shift. The ventricular system is normal in size and configuration. The hippocampal formations are symmetric in size and normal in signal intensity. No intra or extra-axial fluid collections are identified. There are no foci of restricted diffusion. Normal vascular flow voids are noted in the basilar and carotid arteries. The visualized paranasal sinuses are clear. MR/MR head/brain wo con IMPRESSION: No acute intracranial abnormality. Electronically signed by: Yamil Moore MD 09/03/2025 07:15 AM [facility]
--- OUTSIDE RECORDS SUMMARY | 2025-09-02 19:40 | XMS_ITS | Encounter Summary ---
Author Organization [employer] Address [address] [facility] [address] [place] [address] Care Team Providers Care Mobile Heavy Equipment Mechanic Name Role Phone Ana M Harrington MD Primary Care Provider + Encounter Details Date Type Department Care Team (Late st Contact Info) Description 06/10/2024 Orders Only [facility] [address] [place], [place] [phone] Alaina Oseguera FNP [address] [place], [place] [phone] Social History Tobacco Use Types Packs/Day Years [...] Care Team (Late st Contact Info) Description 09/09/2025 10:45 AM EST Office Visit [facility] [address] [place], [place] [phone] Ana M Harrington MD [address] [place], [place] [phone] documented as of this encounter Procedures Procedure Name Priority Date/Time Associated Diagnosis Comments NM HEPATOBILIARY W PHARM Routine 06/24/2024 7:50 AM EDT documented in this encounter Results * NM Hepatobiliary w Pharm (06/24/2024 7:50 AM EDT) Anatomical Region Laterality Modality Body Nuclear Medicine 06/24/2024 7:50 AM EDT Narrative 06/27/2024 12:08 PM EDT [address] [address] Nuclear Medicine Report Signed Patient: Carmen Whitten MR#: [id number] 1346 : 1980 Acct:[id number] Age/Sex: 43 / F ADM Date: 06/24/24 Loc: HO.VANESA Attending Dr: Aleyda SKAGGS Ordering Physician: Aleyda Lima Date of Service: 06/24/24 Procedure(s): NM hepatobiliary w pharm Accession Number(s): [id number] cc: Aleyda Lima; Ana M Harrington MD [...] 06/27/24 1205 DD/ 0750 TD/TT: 06/24/24 0945 Miller Apprentice: RR Procedure Note Donotuseinterpreter, Image - 06/27/[address] [address] Nuclear Medicine Report Signed Patient: Carmen Whitten#: [id number] 1346 : 1980Acct:[id number] Age/Sex: 43 / FADM Date: 06/24/24 Loc: FRANSICO Attending Dr: Aleyda SKAGGS Ordering Physician: Aleyda Lima Date of Service: 06/24/24 Procedure(s): DARREL hepatobiliary w pharm Accession Number(s): [id number] cc: Aleyda Lima-C; Ana M Harrington MD [...] 06/27/24 1205 DD/ 0750 TD/TT: 06/24/24 0945 Miller Apprentice: RR [facility] External Provider IMG NM PROCEDURES Final Result documented in this encounter Visit Diagnoses Not on filedocumented in this encounter Additional Health Concerns Assessment Noted Time PHQ-9 Depression Total Score: 3 03/29/20 23 10:31 AM EDT documented as of this encounter Care Teams Mobile Heavy Equipment Mechanic Relationship Specialty Start Date End Date Ana M Harrington MD [address] [place] [phone] PCP - General Family Medicine 05/29/17 documented as of this encounter
--- OUTSIDE RECORDS SUMMARY | 2025-09-02 19:40 | XMS_ITS | Clinical Summary ---
Author Organization [employer] Address [address] [place] [address] Care Team Providers Care Machine Shop Apprentice Name Role Phone Dominique Harrington MD Primary [...] IN THE MORNING 30 tablet 4 Active Additional Information Patient not taking.Reported on 08/20/2025 Active Problems Problem Noted Date Diagnosed Date [...] to PT Perimenopause 08/04/2023 Assessment & Plan (08/20/2025 11:17 AM EST): -Patient has symptoms going on for approximately 3 years, we discussed about starting HRT but given current androgenic symptoms, I will order DHEA and testosterone levels to rule out PCOS or other androgenic conditions. If all is normal, we will start HRT at next appointment -We discussed importance of doing Pap smears regularly, next one will be due on 2028. -I order mammogram, we discussed importance of having mammogram done every year -We discussed importance of avoiding smoking, especially as she quit recently. We discussed about availability of nicotine replacement therapy which she will call back as needed, for now she feels comfortable and healthier after quitting smoking. Assessment & Plan (08/04/2023 11:54 AM EDT): Pt with amenorrhea x 3 m and she has BTL. Reassurance and explanation about perimenopausal changes, lifetime modifications, increase exercise and hydration FU 3 m, should check [facility] ARCHITECT if HRT needed Epigastric pain 08/04/2023 Assessment [...] AM EDT): s/p biopsy, benign fu with [facility]URE ARCHITECT Jul 2023 Encounter for preventive health examination 03/10 Assessment & Plan (08/20/2025 3:42 PM EST): Discussed with patient re increase fresh fruit and vegetable intake. Counseled re moderate exercise as tolerated, up to 20min/d Patient feels safe at home. PAP smear: UTD, next one due 2028. Mammogram: Overdue, will order today. Lipids/FBS: UTD, will order TB test upon request. Vaccinations: She declined influenza, COVID immunization. Hep B immunizations is up-to-date, she is due for Tdap on 2029 dental visit : Overdue, will give information of dental clinics in area at next appointment. Assessment & Plan (07/31/2024 11:31 AM EDT): [...] obtain last pap smear report FU with [facility] ARCHITECT Mammogram to be ordered Bone density test [...] biopsy currently on Provera. Follow up with [facility] ARCHITECT in [address] scan, chest [...] Encounters Date Type Department Care Team Description 09/02/2025 Results Follow-Up [facility] [address] [place] [phone] Dominique Harrington MD DHEA Sulfate, FSH, LH 08/26/2025 Patient Outreach [address] [address] Dominique Harrington MD Pre-visit Planning ((Unable to reach for PVP screening, LVM) to be completed in office ) 08/20/2025 10:[address] [facility] [address] [place] [phone] Dominique Harrington MD Encounter for preventive health examination (Primary Dx); Perimenopause; Hirsutism; Screening mammogram for breast cancer 08/20/2025 Travel 08/20/[address] [phone] Dominique Harrington MD appt change to Tele 08/19/[address] [phone] Dominique Harrington MD chart prep 08/13/2025 Patient Outreach [address] [address] Dominique Harrington MD Pre-visit Planning (LVM ) 07/04/2025 12:00 PM EDT Office Visit [address] [phone] Dominique Harrington MD Forgetfulness (Primary Dx); Perimenopause 07/04/2025 Travel 06/16/[address] [address] Dominique Harrington MD Nurse Triage from Last 3 Months Immunizations Immunization Administration Dates Next Due Hep B, adult 07/31/2024,05/10/2023,04/12/2023 Influenza, IIV3, injectable 09/09/2015 Tdap 07/22/2020 Family History Medical History Relation Name Comments Lung cancer Father Relation Name Status Comments Father Social History Tobacco Use Types Packs/Day Years Used Date Smoking Tobacco: Former Cigarettes Q uit: 04/08/2025 Smokeless Tobacco: Never Tobacco Cessation:Counseling Given: Not Answered Comments:Pt states she quit in April Alcohol Use Standard Drinks/Week Comments Never 0 (1 standard drink = 0.6 oz pur e alcohol) Alcohol Answer Date Recorded How often do you have a drink containing alcohol ? 0 08/20/2025 Average Number of Drinks Not on file 025 Frequency of Binge Drinking Not on file 08/09 Depression Answer Date Recorded Patient Health Questionnaire-9 Score 14 07/08/2025 Patient Health Questionnaire-9 Score 14 07/08/2025 Last PHQ-9: Questionnaire Data Not on file 0 07/08/2025 Housing Stability Answer Date Recorded What is [...] Date Recorded Patient Health Questionnaire-2 Score 2 07/08/2025 Comments No Intention Date Recorded No desire to become (finding) 1 10/20/2024 Sex and Gender Information Value Date Recorded [...] Description 09/09/2025 10:45 AM EST Office Visit [facility] [address] [place] [address] Dominique Harrington MD [address] [place] [address] Health Maintenance Due Date Last Done Comments Disability Screening 1980 HPV Vaccines (1 - 3-dose series) 1997 Hepatitis A Vaccines (1 of 2 - Risk 2-dose series) 2001 SDOH Screening 01/02/2025 01/03/2024 COVID-19 Vaccine (1 - 2024-2 6 season) 2025 Influenza Vaccine (#1) 2025 09/09/2015 Depression Monitoring 01/05/2026 07/08/2025 , 07/08/2025 Mammogram 01/16/2026 01/17/2024 Diabetes: Hemoglobin A1C 07/04/2026 025, 07/31/2024 Alcohol/Substance Use Screening 08/20/2026 08/20/2025 Family Planning (PISQ) 08/20/2026 08/20/2025 Tobacco Screening 08/20/2026 08/20/2025 Cervical Cancer Screening 02/20/2029 HPV/Cotest 02/20/2029 Pap Smear 02/20/2029 02/21/2024 DTaP/Tdap/Td Vaccines (2 - T d or Tdap) 07/22/2030 07/22/2020 Zoster Vaccines (1 of 2) 2032 RSV Patients and Patients Aged 60 years or older (1 - 1-dose 75+ series) 2057 Hepatitis C Screening Completed 04/06/2023 Hepatitis B Vaccines Completed 07/31/2024, 05/10/2023, 04/12/2023 HIV Screening Completed 07/04/2025, 04/06/2023 HIB Vaccines Aged Out No longer eligi [...] on patient's age to complete this topic Pneumococcal Vaccine: Pediatrics (0 to 5 Years) and At-Risk Patients (6 to 49) Years Aged Out No longer eligible b ased on patient's age to complete this topic RSV under 20 months Aged Out No longe r eligible based on patient's age to complete this topic Rotavirus Vaccines Aged Out No longer eligible based on patient's age to complete this topic Procedures Procedure Name Priority Date/Time Associated Diagnosis Comments LH Routine 09/01/2025 9:49 AM EST Perimenopause Hirsutism FSH Routine 09/01/2025 9:49 AM EST Perimenopause Hirsutism DHEA SULFATE Routine 09/01/2025 9:49 AM EST Hirsutism SYPHILIS SCREEN Routine 07/04/2025 1:34 PM EDT Forgetfulness HIV 1/2 ANTIGEN/ANTIBODY, FOURTH GENERATION W/RFL Routine 07/04/2025 1:34 PM EDT Forgetfulness CBC WITH AUTO DIFFERENTIAL Routine 07/04/2025 1:34 PM EDT Forgetfulness HEMOGLOBIN A1C Routine 07/04/2025 1:34 PM EDT Forgetfulness TSH W/REFLEX TO FT4 Routine 07/04/2025 1 :34 PM EDT Forgetfulness Perimenopause COMPREHENSIVE METABOLIC PANEL Routine 07/04/2025 1:34 PM EDT Forgetfulness VITAMIN B12/FOLATE, SERUM PANEL Routine 07/04/2025 1:34 PM EDT Forgetfulness PAP SMEAR Routine 02/21/2024 10:55 AM EDT BI MAMMOGRAM SCREENING TOMOSYNTHESIS BILATERAL Routine 01/17/2024 12:12 PM EDT HEPATITIS PANEL, GENERAL Routine 04/06/2023 11:18 AM EDT Encounter for preventive health examination from Last 3 Months or Most Recently Relevant to Health Maintenance Results * Syphilis Screen (07/04/2025 1:34 PM EDT) Syphilis Screen Nonreactive Nonreactive [facility] Blood 07/04/2025 1:34 PM EDT 07/04/2025 3:57 PM EDT Dominique Harrington MD LAB BLOOD ORDERABLES Fin al Result Performing Organization Address City/[facility] Co de Phone Number [facility] [address] [place] [phone] * Vitamin B12/Folate, Serum Panel (07/04/2025 1:34 PM EDT) [facility] Vitamin B12 380 200 - 900 pg/mL [facility] Comment:NORMAL 200-900 PG/ML INDETERMINATE 160-199 PG/ML DEFICIENT < 160 PG/ML Folate 9.3 > or = 4.0 ng/mL [facility] Comment:Reference Values:> o r = 4.0 ng/mL< 4.0 ng/mL suggests folate deficiency Methotrexate, aminopterin and folinic acid(leucovorin) are chemotherapeutic agents whose molecularstructures are similar to folate; therefore, the Architectfolate assay cannot be used for patients using these drugs. Blood Venous blood specimen / Unknown 07/04/2025 1:34 PM EDT 07/04/2025 3:57 PM EDT Dominique Harrington MD LAB BLOOD ORDERABLES Fin al Result Performing Organization Address City/[facility] Co de Phone Number [facility] [address] [place] [phone] * TSH with Reflex to Free T4 (07/04/2025 1:34 PM EDT) Pathologist [facility] TSH reflex Free T4 1.73 0.32 - 4.0 uIU/mL [facility] Blood 07/04/2025 1:34 PM EDT 07/04/2025 3:57 PM EDT us Dominique Harrington MD LAB BLOOD ORDERABLES Fin al Result [facility] [address] [place], [place] [phone] * CBC auto differential (07/04/2025 1:34 PM EDT) White Blood Count 9.6 4.8 - 10.8 X10*3/uL [facility] Red Blood Count 4.32 4.20 - 5.50 X10*6/uL [facility] Hemoglobin 12.6 12.0 - 16.0 g/dl [facility] Hematocrit 37.6 37.0 - 47.0 % [facility] Mean Corpuscular Volume 87.0 80.0 - 98.0 fL [facility] Mean Corpuscular Hemoglobin 29.2 27.0 - 33.0 pg [facility] Mean Corpuscular HGB Conc 33.5 31.0 - 35.0 g/dl [facility] Red Cell Distribution Width 13.5 11.0 - 16.0 % [facility] Platelet Count 239 160 - 400 X10*3/uL [facility] Mean Platelet Volume 11.0 9.4 - 12.3 fL [facility] Neutrophils Percent Auto 69.4 45 - 73 % [facility] Imm Gran Pct Auto 0.3 0.0 - 0.4 % [facility] Lymphocytes Percent Auto 21.8 20 - 40 % [facility] Monocytes Percent Auto 7.0 2 - 11 % [facility] Eosinophils Percent Auto 1.0 0 - 4 % [facility] Basophils Percent Auto 0.5 0 - 2 % [facility] NRBC Pct Auto 0.0 0.0 - 0.2 /100WBC [facility] Neutrophils Absolute Auto 6.6 2.0 - 8.3 x10*3/uL [facility] Imm Gran Abs Auto 0.03 0.00 - 0.03 X10*3/uL [facility] Lymphocytes Absolute Auto 2.1 1.2 - 4.9 X10*3/uL [facility] Monocytes Absolute Auto 0.7 0.1 - 1.2 X10*3/uL [facility] Eosinophils Absolute Auto 0.1 0.0 - 0.4 X10*3/uL [facility] Basophils Absolute Auto 0.1 0.0 - 0.2 X10*3/uL [facility] NRBC Abs Auto 0.000 0.0 - 0.012 X10*3/uL [facility] Blood Venous blood specimen / Unknown 07/04/2025 1:34 PM EDT 07/04/2025 3:57 PM EDT us Dominique Harrington MD LAB BLOOD ORDERABLES Fin al Result [facility] [address] [place] [phone] * HIV-1/2 Antigen and Antibodies, Fourth Generation, with Reflexes (07/04/2025 1:34 PM EDT) [facility] HIV AB/AG Nonreactive Nonreactive [facility] Comment:HIV-1 p24 Ag and/or HIV-1/HIV-2 Ab not detected.A test result that is nonreactive does not exclude thepossibility of exposure to or infection with HIV-1 and/orHIV-2. Nonreactive results in this assay for individualswith prior exposure to HIV-1 and/or HIV-2 may be due toantigen and antibody levels that are below the limit ofdetection of this assay.The [employer] HIV Ag/Ab Combo assay result andsupplemental assay results should be interpreted inconjunction with the patient's clinical presentation,history and other laboratory results. If the results areinconsistent with clinical evidence, additional testing issuggested to confirm the result. Blood Venous blood specimen / Unknown 07/04/2025 1:34 PM EDT 07/04/2025 3:57 PM EDT us Dominique Harrington MD LAB BLOOD ORDERABLES Fin al Result Performing Organization Address [facility]/ZIP Co de Phone Number [facility] [address] [place] [phone] * Hemoglobin A1c (07/04/2025 1:34 PM EDT) Hemoglobin A1c 6.0 <6.0 % [facility] Comment:Hemoglobin A1C Refer ence Range Adults: 4.8 - 6.0 % Non diabetic: < 6.0 % Goal: < 7.0 %Additional Action Suggested: > 8.0 %Note: Hemoglobin A1c results are invalid for patients with abnormal amounts of HbF. Blood transfusions may impact the HbA1c concentration in the patient sample. Estimated Average Glucose 126 mg/dL [facility] Comment:eAG = Estimated ave rage glucose which is %A1C expressed asaverage glucose, using the formula of the A8C-MwmdpopXwbrspj Glucose study (ADAG), Diabetes Care, Vol.31,#8,May. 2007 Blood Venous blood specimen / Unknown 07/04/2025 1:34 PM EDT 07/04/2025 3:57 PM EDT us Dominique Harrington MD LAB BLOOD ORDERABLES Fin al Result Performing Organization Address [facility]/ZIP Co de Phone Number [facility] [address] [place] [phone] * Comprehensive Metabolic Panel (07/04/2025 1:34 PM EDT) Sodium 139 135 - 145 mmol/L [facility] Potassium 4.2 3.3 - 5.1 mmol/L [facility] Chloride 106 96 - 108 mmol/L [facility] Carbon Dioxide 25 22 - 29 mmol/L [facility] Anion Gap 12 12 - 20 [facility] Urea Nitrogen (BUN) 10 9 - 16 mg/dL [facility] Creatinine, Serum 0.66 0.5 - 1.4 mg/dL [facility] Estimated Glomerular Filt Rate >60 [facility] Comment:Chronic Kidney Disea se: Estimated GFR < 60 mL/min/1.54e1Ydrdvf Kidney Disease: Estimated GFR < 15 mL/min/1.73m2 Glucose 82 60 - 115 mg/dL [facility] Calcium 9.7 8.4 - 10.2 mg/dL [facility] Bilirubin, Total 0.3 0.0 - 1.0 mg/dL [facility] Aspartate Amino Transferase 26 5 - 31 U/L [facility] Alanine Aminotransferase 19 0 - 31 U/L [facility] Total Protein 7.2 6.5 - 8.0 g/dL [facility] Albumin Level 4.3 3.5 - 5.0 g/dL [facility] Alkaline Phosphatase 56 39 - 117 U/L [facility] Blood Venous blood specimen / Unknown 07/04/2025 1:34 PM EDT 07/04/2025 3:57 PM EDT us Dominique Harrington MD LAB BLOOD ORDERABLES Fin al Result [facility] [address] [place] [phone] * Pap Smear (02/21/2024 10:55 AM EDT) 02/21/2024 10:5 5 AM EDT 02/22/2024 10:15 AM EDT Narrative [facility] - 03/11/2024 11:57 AM EDT ----- ------- Name: Carmen Whitten Age/Sex: 43/F : 1980 Unit#: [id number] Attend Dr: Kalin Potrillo MD Re02/21/24 Status: DEP REF Location: [facility] Disch: ----- ------- SPEC : [id number] RECD: 02/22/24-5 STATUS: JULI PAINTER NUM: [id number] KOJO: 02/21/24-[address] [facility] [address]: Kalin Portillo MD ENTERED: 02/22/24 SP TYPE: Pap Smr OTHR DR: Dominique Harrington MD ORDERED: Pap Smear Interpretation Satisfactory for evaluation. Negative for intraepithelial lesion or malignancy. Coccobacilli consistent with shift in vaginal klaudia. HPV mRNA E6/E7: NOT DETECTED This assay detects E6/E7 viral messenger RNA (mRNA) from 14 high-risk HPV types (16, 18, 31, 33, 35, 39, 45, 51, 52, 56, 58, 59, 66, 68) HPV testing performed by [facility], [place], [place]. See reference laboratory portion of the EMR for entire report. Clinical Information LMP:01/20/24 Previous PAP test:2019 ELVIRA 3 Material Received ThinPrep-Cervical Copies To: Dominique Harrington MD [address] [place] [phone] Kalin Portillo MD [address] [place] [address] [address] ----- ------- Signed (signature on file) Liza A Cecy 03/11/24 1157 ----- ------- END OF REPORT us Generic External Data Provider LAB CYTOLOGY ORDRossi CRANE Final Result [facility] [address] [place] [phone] * BI Mammogram Screening Tomosynthesis Bilateral (01/17/2024 12:12 PM EDT) Anatomical Region Laterality Modality Breast Bilateral Mammography 01/17/2024 12:1 2 PM EDT Narrative 01/22/2024 6:14 AM EDT [facility] [address] [place] [address] Mammography Report Signed Patient: Carmen Whitten MR#: [id number] : 1980 Acct:[id number] Age/Sex: 43 / F ADM Date: 01/17/24 Loc: HO.MAMMO Attending Dr: Dominique Harrington MD Ordering Physician: Dominique Harrington MD Results: 1Ne gative Date of Service: 01/17/24 Follow Up: 1 Year From [facility] Mammogram Procedure(s): MM tomosynthesis screening BI Accession Number(s): [id number] cc: Dominique Harrington MD EXAMINATION: MM SCREENING [...] in OV> 01/22/24 0611 DD/ 1212 TD/TT: Alarm Adjuster: Procedure Note Donotuseinterpreter, Image - 01/22/2024 [facility] [address] [place] [address] Mammography Report Signed Patient: Carmen WhittenMR#: [id number] : 1980Acct:[id number] Age/Sex: 43 / FADM Date: 01/17/24 Loc: TIMOTHY.MAMMO Attending Dr: Dominique Harrington MD Ordering Physician: Dominique Harrington MDResults: 1Ne gative Date of Service: 01/17/24Follow Up: 1 Year From Orig inal Mammogram Procedure(s): MM tomosynthesis screening BI Accession Number(s): [id number] cc: Dominique Harrington MD EXAMINATION: MM SCREENING [...] in OV> 01/22/24 0611 DD/ 1212 TD/TT: Alarm Adjuster: Dominique Harrington MD IMG BI PROCEDURES Final Result * (ABNORMAL) Hepatitis Panel, General (04/06/2023 11:18 AM EDT) Hepatitis A Antibody Total REACTIVE( A) NON-REACT WARREN [facility] Comment: For additional information, please refer to http://[employer]/faq/EHS697 (This link is being provided for informational/ educational purposes only.) Hepatitis B Surface Antibody QL NON-REACT WARREN NON-REACT WARREN [facility] Hepatitis B Surface Ag NON-REACT WARREN NON-REACT WARREN [facility] [place] [facility] Comment: For additional information, please refer to http://[employer]/faq/ZGP098 (This link is being provided for informational/ educational purposes only.) Hepatitis B Core Antibody Total NON-REACT WARREN NON-REACT WARREN [facility] [place] [facility] Comment: For additional information, please refer to http://[employer]/faq/AIW300 (This link is being provided for informational/ educational purposes only.) Hepatitis C Antibody NON-REACT WARREN NON-REACT WARREN [facility] Comment: HCV antibody was non-reactive. There is no laboratory evidence of HCV infection. In most cases, no further action is required. However, if recent HCV exposure is suspected, a test for HCV RNA (test code 21856) is suggested. For additional information please refer to http://[employer]/faq/YHQ44t0 (This link is being provided for informational/ educational purposes only.) 04/06/2023 11:1 8 AM EDT 04/06/2023 11:19 AM EDT Narrative [facility] - 04/13/2023 5:34 AM EDT FASTING:YES FASTING: YES Dominique Harrington MD LAB BLOOD ORDERABLES Fin al Result [facility] [address] [facility], [place] [address] [facility] [address] [place] [phone] from Last 3 Months or Most Recently Relevant to Health Maintenance Insurance [facility] C3 HSN PARTIAL Care Teams Machine Shop Apprentice Relationship Specialty Start Date End Date Dominique Harrington MD [address] [place] [address] PCP - General Family Medicine 05/29/17
--- OUTSIDE RECORDS SUMMARY | 2025-09-02 19:40 | XMS_ITS | Encounter Summary ---
Author Organization [employer] Address [address] [facility] [address] 7t [place] [address] Care Team Providers Care Informatics Coordinator Name Role Phone Ana M Harrington MD Primary Care Provider + Encounter Details Date Type Department Care Team ([facility] st Contact Info) Description 09/02/2025 Results Follow-Up [facility] [address] [place], [place] [phone] Ana M Harrington MD [address] [place], [place] [phone] DHEA Sulfate, FSH, LH Social History Tobacco Use Types Packs/Day Years Used Date Smoking Tobacco: Former Cigarettes Q uit: 04/08/2025 Smokeless Tobacco: Never Comments:Pt states she quit in April Alcohol [...] Health Questionnaire-2 Score 2 07/08/2025 Comments No Sex and Gender Information Value Date Recorded Sex Assigned at Female 08/08/2022 10:21 AM EDT Legal Sex Female 10:21 AM EDT Gender Identity Female 08/08/2022 10:21 AM EDT Sexual Orientation Straight 08/08/2022 10 :21 AM EDT documented as of this encounter Miscellaneous Notes * Result Encounter Note - Ana M Harrington MD - 09/02/2025 5:47 PM EST Labs on 09/02 c/w perimenopause, will FU w patient next week at her appt w/me documented in this encounter Plan of Treatment Upcoming Encounters Date Type Department Care Team (Late st Contact Info) Description 09/09/2025 10:45 AM EST Office Visit [facility] [address] [place], [place] [phone] Ana M Harrington MD [address] [place] [address] documented as of this encounter Visit Diagnoses Not on filedocumented in this encounter Additional Health Concerns Assessment Noted Time PHQ-9 Depression Total Score: 14 025 2:17 PM EDT documented as of this encounter Care Teams Informatics Coordinator Relationship Specialty Start Date End Date Ana M Harrington MD [address] [place] [address] PCP - General Family Medicine 05/29/17 documented as of this encounter
--- OUTSIDE RECORDS SUMMARY | 2025-09-02 19:40 | XMS_ITS | Encounter Summary ---
Author Organization [facility] Address [address] [facility] 7t [place] [address] Care Team Providers Care Dry Food Products Mixer Name Role Phone Ana M Harrington MD Primary Care Provider + Reason for Visit * Reason Onset Date Comments Nurse Triage 09/04/2023 Encounter Details Date Type Department Care Team ([facility] Contact Info) Description 09/04/2023 Telephone [facility] [address] [place], [place] [phone] Ana M Harrington MD [address] [place], [place] [phone] Nurse Triage Social History Tobacco Use Types [...] 09/04/2023 3:16 PM EST Triage call with [employer] Intern ID [id number] Pt was seen in ED 08/01 with [...] acuity questions The caller accepted this outcome Burkinan Speaker documented in this encounter Plan of Treatment Upcoming Encounters Date Type Department Care Team (Late st Contact Info) Description 09/09/2025 10:45 AM EST Office Visit [facility] [address] [place] [address] Ana M Harrington MD [address] [place] [address] documented as of this encounter Visit Diagnoses Not on filedocumented in this encounter Additional Health Concerns Assessment Noted Time PHQ-9 Depression Total Score: 3 03/29/20 23 10:31 AM EDT documented as of this encounter Care Teams Dry Food Products Mixer Relationship Specialty Start Date End Date Ana M Harrington MD [address] [place] [phone] PCP - General Family Medicine 05/29/17 documented as of this encounter
== END 2025-09-02 17:09 | disposition home or self-care (01) ==
LOC: HO.MRI 17:08
PROVIDERS: PCP Internal Medicine; Visit Provider Internal Medicine
DX: R68.89 Other general symptoms and signs (principal)
CPT/HCPCS: 70551

== ENCOUNTER → 2025-09-02 17:08 | Outpatient (BNV) | payer MEDICAID, SELFPAY | PROVIDERS: PCP Internal Medicine; Visit Provider Radiology Diagnostic Radiology | DX: R41.3 Other amnesia (principal) | CPT/HCPCS: 70551 ==